=== PATIENT | male | born 1945 | race Caucasian/White ===

== ENCOUNTER 2023-10-24 18:17 | Observation (INO) | payer OTHER ==
--- OUTSIDE RECORDS SUMMARY | 2023-10-24 18:24 | XMS REPORT | Continuity of Care Document ---
:1945 Author Organization [facility] t Address [address] [place] [address] [address] [place] [address] Care Team Providers Name Role Phone Derrell Cali MD Primary Care Physician [phone] Rodney Attending Clinician Unavailable Everett Bone MD Attending Clinician Willard Navarro MD Attending Clinician ARSLAN TORRES Attending Clinician Unavailable YENNIFER POE Attending Clinician Unavailable Therapy, Adc Covid Infusion Attending Clinician Unavailable Yennifer Poe MD Attending Clinician Doctor Unassigned, [place] Attending Clinician Unavailable Kenny Michaels RN Attending Clinician Unavailable Pcp, Patient Does Not Have A Attending Clinician [phone] ROS MAIER Attending Clinician Unavailable Only, Ang Db Test Attending Clinician Unavailable Ros Maier MD Attending Clinician ALEX AGUILERA Attending Clinician Unavailable MARLINE VICK Attending Clinician Unavailable Chris Hernandez Attending Clinician Marline Vick MD Attending Clinician Po, [facility] Attending Clinician Unavailable Rodney Admitting Clinician Unavailable DINESH PANDYA Admitting Clinician Unavailable MD WILLARD NAVARRO Admitting Clinician Unavailable ALEX AGUILERA Admitting Clinician Unavailable MARLINE VICK Admitting Clinician Unavailable Payers Payer Name Policy Type Policy Number Effective Date Expiration Date Kellen VÁSQUEZ (MEDICARE [id number] 2021 REPLACEMENT PPO) 00:00:00 [place]: [id number] [employer] 00:00:00 [employer] [place] [id number] (MEDICARE 00:00:00 SUPPLEMENT) MEDICARE PART A \\T\\ [id number] 2009 B 00:00:00 [employer] [place] [id number] 2011 00:00:00 [place] [id number] (MEDICARE) 00:00:00 Problems Condition Condition Condition Status Onset Resolution Last Treating Co mments Source Name Details Category Date Date Treatment Clinician Date Body mass Body Mass Problem Active 2022-11 Narayan escobar index 30+ Index 30+ 0-03 Fami ly - obesity - Obesity 00:00: Prac tic 00 e Type 2 Type 2 Problem Active [facility] diabetes Diabetes 4-28 Family mellitus Mellitus 00:00: Practi c 00 e Senile Senile Problem Active [facility] purpura Purpura 4-28 Family 00:00: Practic 00 e Long-term Long-term Problem Active Narayan escobar current Current 4-28 Family use of Use of 00:00: Practic insulin Insulin 00 e Other Other Disease Active Overview: Method i spondylosi spondylosi 3-[address] s with s with 00:00: g of this Hospita radiculopa radiculopa 00 note l thy, thy, might be lumbar lumbar different region region from the original. Added automatic ally from request for surgery [id number] Lumbar Lumbar Disease Active Overview: Method i stenosis stenosis 3-[address] without without 00:00: g of this Hospi ta neurogenic neurogenic 00 note l claudicati claudicati might be on on different from the original. Added automatic ally from request for surgery [id number] Spondyloli Spondyloli Disease Active Overview : Methodi sthesis of sthesis of 3-[address] lumbar lumbar 00:00: g of this Hospita region region 00 note l might be different from the original. Added automatic ally from request for surgery [id number] Hypoglycem Hypoglycem Problem Active 2020-11 V illage ia ia 2-21 Family 00:00: Practic 00 e Multiple Multiple Problem Active Oconnell ge complicati Complicati 06-15 Fa awilda ons due to ons Due to 00:00: Pr actic type 2 Type 2 00 e diabetes Diabetes mellitus Mellitus Hyperlipid Hyperlipid Problem Active [facility] emia due emia Due 06-15 Family to type 2 to Type 2 00:00: Prac tic diabetes Diabetes 00 e mellitus Mellitus Medication Medication Problem Active [facility] review due Review Due 05-16 Fa awilda 00:00: Practic 00 e Eosinophil Eosinophil Problem Active [facility] count Count 9 Family above above 00:00: Practic reference Reference 00 e range Range Essential Essential Disease Active Met hodi hypertensi hypertensi 1-07 st on on 00:00: Hospita 00 l History of History of Disease Active M ethodi coronary coronary 1-07 st artery artery 00:00: Hospita stent stent 00 l placement placement Atrial Atrial Disease Active 2016-11 Methodi fibrillati fibrillati 2-05 st on on 00:00: Hospita 00 l CAD in CAD in Disease Active 2016-11 Methodi [place] 2-05 st artery artery 00:00: Hospita 00 l Hyperlipid Hyperlipid Problem Active 2016-11 V illage emia emia 0-18 Family 00:00: Practic 00 e Obesity Obesity Problem Active 2016-11 [place] 0-18 Family 00:00: Practic 00 e Essential Essential Problem Active 2016-11 Narayan shawn hypertensi Hypertensi 0-18 Fa awilda on on 00:00: Practic 00 e Atrial Atrial Problem Active 2016-11 [place] fibrillati Fibrillati 0-18 Fa awilda on on 00:00: Practic 00 e Sciatica Sciatica Problem Active 2016-11 Oconnell ge 0-18 Family 00:00: Practic 00 e 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 Methodi atrial atrial nce 2-06 st fibrillati fibrillati 00:00: Ho spita on on 00 l Benign Benign Disease Active 2015-11 Methodi hypertensi hypertensi 0-27 st on on 00:00: Hospita 00 l Cerebrovas Cerebrovas Disease Active 2015-11 M ethodi cular cular 0 st accident accident 00:00: Hospit a (CVA) (CVA) 00 l Coronary Coronary Disease Active 2015-11 Metho di arterioscl arterioscl 0 st erosis erosis 00:00: Hospita 00 l Hyperlipid Hyperlipid Disease Active 2015-11 M ethodi emia emia 0 st 00:00: Hospita 00 l Peripheral Peripheral Disease Active 2015-11 M ethodi vascular vascular 0 st disease disease 00:00: Hospita 00 l [id number] Recurrent Problem Co mmon [id number] [facility]ith [id number] Hypercalci Problem Com mon uria [facility] Kidney Kidney Problem Common stone stones [facility] [id number] Hyperoxalu Problem C ommon [id number] mirza [facility] Allergies, Adverse Reactions, Alerts Allergy Allergy Status Severity Reaction(s) Onset Inactive Treating Comm ents Source Name Type Date Date Clinician Cortison Propensi Active Unknown - pancreati Univers e ty to See comments 06-28 tis ity of adverse 00:00: [place] reaction 00 Medical s Branch CORTISON DRUG Active Unknown-Cmnt Un cris E INGREDI 06-28 ity of 00:00: [place] 00 Medical Branch No Known Propensi Active 2015-11 Method i Drug ty to 0 st Allergie adverse 00:00: Hospita s reaction 00 l s to drug Family History Family Member Diagnosis Comments Start Date Stop Date Source Other Coronary artery [facility] disease Social History Social Habit Start Date Stop Date Quantity Comments Source Sexual orientation [facility] of [facility] Exposure to Unable to assess Methodi st SARS-CoV-2 (event) Hospit al History of Social 2022-04-01 2022-04-[address] function 00:00:00 00:00:00 Hospital Alcohol intake 2022-03-29 2022-03-29 Current [facility] 00:00:00 00:00:00 non-drinker of Hospital alcohol (finding) Tobacco use and 2019-12-22 2019-12-22 Smokeless [facility] exposure 00:00:00 00:00:00 tobacco non-user Hospital Sex Assigned At [birth year] [facility] 00:[facility] Smoking Status Start Date Stop Date Source Never Smoker [facility] Medications Ordered Filled Start Stop Current Ordering Indication Dosage Frequency Signature Comments Components Source Medication Medication Date Date Medication? Clinician (SIG) Name Name atorvastati Yes 10mg QD Take 1 Meth jason n (LIPITOR) 7-11 tablet (10 st 10 mg 10:59: mg total) Hospita tablet 20 by mouth l daily. empaglifloz 2022-0 Yes QD Take by Met vinh -linaglip-m 7-[address] etformin 10:59: daily. Hospita (Trijardy 20 TAKE 2 TAB l XR) 25-5-1,000 mg tablet, IR & ER, biphasic 24hr cetirizine 0 Yes 10mg QD Take 1 Metho di (ZyrTEC) 10 7-11 tablet (10 st MG tablet 10:59: mg total) Hos rhianna 20 by mouth l daily. multivitami 0 Yes 1{tbl} QD Take 1 Me thodi n tablet 7-[address] 10:59: mouth Hospita 20 daily. l cholecalcif 0 Yes Take by Met vinh caterina, 7-[address] vitamin D3, 10:59: Hospit a (VITAMIN D3 20 l ORAL) ZINC ORAL 2022-0 Yes Take by Metho di 7-[address] 10:59: Hospita 20 l ascorbic 2022-0 Yes Take by Method i acid 7-[address] (WALLACE-C 10:59: Hospita ORAL) 20 l ferrous 2022-0 Yes Take by Methodi sulfate 7-[address] (IRON ORAL) 10:59: Hospit a 20 l MAGNESIUM 2022-0 Yes Take by Metho di ORAL 7-[address] 10:59: Hospita 20 l NON 3-0 Yes COq10, Methodi FORMULARY 7-11 FISH OIL, st 10:59: TURMERIC, Hospita 20 FOLIC l ACID, TRANSRESVE RATROL atorvastati 0 Yes 10mg QD Take 1 Meth jason n (LIPITOR) 7-11 tablet (10 st 10 mg 10:59: mg total) Hospita tablet 20 by mouth l daily. empaglifloz 2022-0 Yes QD Take by Met vinh -jesusaglip-m - mouth st etformin 10:59: daily. Hospita (Trijardy 20 TAKE 2 TAB l XR) 25-5-1,000 mg tablet, IR & ER, biphasic 24hr cetirizine 2022-0 Yes 10mg QD Take 1 Metho di (ZyrTEC) 10 -11 tablet (10 st MG tablet 10:59: mg total) Hos rhianna 20 by mouth l daily. multivitami 2022-0 Yes 1{tbl} QD Take 1 Me thodi n tablet -[address] 10:59: mouth Hospita 20 daily. l cholecalcif 2022-0 Yes Take by Met vinh caterina, 06-[address] vitamin D3, 10:59: Hospit a (VITAMIN D3 20 l ORAL) ZINC ORAL 2022-0 Yes Take by Metho di - mouth. st 10:59: Hospita 20 l ascorbic 2023-0 Yes Take by Method i acid - mouth. st (WALLACE-C 10:59: Hospita ORAL) 20 l ferrous 2022-0 Yes Take by Methodi sulfate -[address] (IRON ORAL) 10:59: Hospit a 20 l MAGNESIUM 2022-0 Yes Take by Metho di ORAL - mouth. st 10:59: Hospita 20 l NON 3-0 Yes COq10, Methodi FORMULARY 06-05 FISH OIL, st 10:59: TURMERIC, Hospita 20 FOLIC l ACID, TRANSRESVE RATROL atorvastati 2022-0 Yes 10mg QD Take 1 Meth jason n (LIPITOR) 7-11 tablet (10 st 10 mg 10:59: mg total) Hospita tablet 20 by mouth l daily. empaglifloz 2022-0 Yes QD Take by Met vinh -linaglip-m - mouth st etformin 10:59: daily. Hospita (Trijardy 20 TAKE 2 TAB l XR) 25-5-1,000 mg tablet, IR & ER, biphasic 24hr cetirizine 2022-0 Yes 10mg QD Take 1 Metho di (ZyrTEC) 10 7-11 tablet (10 st MG tablet 10:59: mg total) Hos rhianna 20 by mouth l daily. multivitami 0 Yes 1{tbl} QD Take 1 Me thodi n tablet 7-[address] 10:59: mouth Hospita 20 daily. l cholecalcif 0 Yes Take by Met hodi caterina, 06-[address] vitamin D3, 10:59: Hospit a (VITAMIN D3 20 l ORAL) ZINC ORAL 0 Yes Take by Metho di - mouth. st 10:59: Hospita 20 l ascorbic 0 Yes Take by Method i acid - mouth. st (WALLACE-C 10:59: Hospita ORAL) 20 l ferrous 0 Yes Take by Methodi sulfate 06-[address] (IRON ORAL) 10:59: Hospit a 20 l MAGNESIUM 0 Yes Take by Metho di ORAL 06-[address] 10:59: Hospita 20 l NON 0 Yes COq10, Methodi FORMULARY 06-05 FISH OIL, st 10:59: TURMERIC, Hospita 20 FOLIC l ACID, TRANSRESVE RATROL atorvastati 0 Yes 10mg QD Take 1 Meth jason n (LIPITOR) 7-11 tablet (10 st 10 mg 10:59: mg total) Hospita tablet 20 by mouth l daily. empaglifloz 0 Yes QD Take by Met hodi -linaglip-m 06-[address] etformin 10:59: daily. Hospita (Trijardy 20 TAKE 2 TAB l XR) 25-5-1,000 mg tablet, IR & ER, biphasic 24hr cetirizine 0 Yes 10mg QD Take 1 Metho di (ZyrTEC) 10 7-11 tablet (10 st MG tablet 10:59: mg total) Hos rhianna 20 by mouth l daily. multivitami 0 Yes 1{tbl} QD Take 1 Me thodi n tablet 7-[address] 10:59: mouth Hospita 20 daily. l cholecalcif 0 Yes Take by Met hodi caterina, 06-[address] vitamin D3, 10:59: Hospit a (VITAMIN D3 20 l ORAL) ZINC ORAL 2022-0 Yes Take by Metho di 7-[address] 10:59: Hospita 20 l ascorbic 2022-0 Yes Take by Method i acid 7-[address] (WALLACE-C 10:59: Hospita ORAL) 20 l ferrous 2022-0 Yes Take by Methodi sulfate 7-[address] (IRON ORAL) 10:59: Hospit a 20 l MAGNESIUM 2022-0 Yes Take by Metho di ORAL 7-[address] 10:59: Hospita 20 l NON 3-0 Yes COq10, Methodi FORMULARY 7-11 FISH OIL, st 10:59: TURMERIC, Hospita 20 FOLIC l ACID, TRANSRESVE RATROL Xarelto 20 2022-0 Yes 20mg QD Take 1 Metho di mg tablet 7-11 tablet ( 00:00: mg total) Hospita 00 by mouth l daily. Xarelto 20 2022-0 Yes 20mg QD Take 1 Metho di mg tablet 7-11 tablet ( 00:00: mg total) Hospita 00 by mouth l daily. Xarelto 20 2022-0 Yes 20mg QD Take 1 Metho di mg tablet 7-11 tablet ( 00:00: mg total) Hospita 00 by mouth l daily. Xarelto 20 2022-0 Yes 20mg QD Take 1 Metho di mg tablet 7-11 tablet ( 00:00: mg total) Hospita 00 by mouth l daily. sotaloL 2022-0 Yes TAKE 1 Methodi (BETAPACE) 6-[address] 80 MG 00:00: MOUTH 2 Hospita tablet 00 TIMES A l DAY. sotaloL 2022-0 Yes TAKE 1 Methodi (BETAPACE) 6-[address] 80 MG 00:00: MOUTH 2 Hospita tablet 00 TIMES A l DAY. sotaloL 2022-0 Yes TAKE 1 Methodi (BETAPACE) 6-[address] 80 MG 00:00: MOUTH 2 Hospita tablet 00 TIMES A l DAY. sotaloL 2022-0 Yes TAKE 1 Methodi (BETAPACE) 6-[address] 80 MG 00:00: MOUTH 2 Hospita tablet 00 TIMES A l DAY. hydroCHLORO hydroCHLORO 2022-0 No 1{table QD hydroCHLOR thiazide 25 thiazide 25 5-25 t_in_th Othiazide MG MG 00:00: e_morni 25 MG 00 ng} ramipriL 2022-0 Yes [id number] TAKE 1 Me thodi (ALTACE) 10 3-[address] MG capsule 00:00: MOUTH Hospit a 00 EVERY DAY l ramipriL 2022-0 Yes [id number] TAKE 1 Me thodi (ALTACE) 10 3-[address] MG capsule 00:00: MOUTH Hospit a 00 EVERY DAY l ramipriL 2022-0 Yes [id number] TAKE 1 Me thodi (ALTACE) 10 3-[address] MG capsule 00:00: MOUTH Hospit a 00 EVERY DAY l ramipriL 2022-0 Yes [id number] TAKE 1 Me thodi (ALTACE) 10 3-[address] MG capsule 00:00: MOUTH Hospit a 00 EVERY DAY l Chlorthalid Chlorthalid 2021-11 No QD Chlorthali one 25 MG one 25 MG 1-23 done 25 MG 00:00: 00 Xarelto 20 2022- No 20mg QD Take 1 Meth jason mg tablet 06-06 tablet ( 00:00: 00:00 mg total) Hospita 00 :00 by mouth l daily. Xarelto 20 2021- 202- No 20mg QD Take 1 Meth jason mg tablet 06-06 tablet ( 00:00: 00:00 mg total) Hospita 00 :00 by mouth l daily. Xarelto 20 2021-2022- No 20mg QD Take 1 Meth jason mg tablet 06-06 tablet ( 00:00: 00:00 mg total) Hospita 00 :00 by mouth l daily. Xarelto 20 2022- No 20mg QD Take 1 Meth jason mg tablet 06-06 tablet ( 00:00: 00:00 mg total) Hospita 00 :00 by mouth l daily. sotaloL 2022- No 80mg Q.5D Take 1 Methodi (sotalol 06-06 06-27 tablet (80 st AF) 80 MG 00:00: 00:00 mg total) Ho spita tablet 00 :00 by mouth 2 l (two) times a day. sotaloL 2022- No 80mg Q.5D Take 1 Methodi (sotalol 06-0627 tablet (80 st AF) 80 MG 00:00: 00:00 mg total) Ho spita tablet 00 :00 by mouth 2 l (two) times a day. sotaloL 2022- No 80mg Q.5D Take 1 Methodi (sotalol 7-27 tablet (80 st AF) 80 MG 00:00: 00:00 mg total) Ho spita tablet 00 :00 by mouth 2 l (two) times a day. sotaloL 2022- No 80mg Q.5D Take 1 Methodi (sotalol 7-27 tablet (80 st AF) 80 MG 00:00: 00:00 mg total) Ho spita tablet 00 :00 by mouth 2 l (two) times a day. nut.tx.comp Yes [id number] 1{bottl Q.5D Take 1 Methodi . immune 4-18 e} Bottle by st systm,reg 00:00: mouth 2 Hospi ta (Impact 00 (two) l Advanced times a Recovery) day. 0.1 gram-1.12 kcal/mL liquid nut.tx.comp Yes [id number] 1{bottl Q.5D Take 1 Methodi . immune 4-18 e} Bottle by st systm,reg 00:00: mouth 2 Hospi ta (Impact 00 (two) l Advanced times a Recovery) day. 0.1 gram-1.12 kcal/mL liquid nut.tx.comp Yes [id number] 1{bottl Q.5D Take 1 Methodi . immune 4-18 e} Bottle by st systm,reg 00:00: mouth 2 Hospi ta (Impact 00 (two) l Advanced times a Recovery) day. 0.1 gram-1.12 kcal/mL liquid nut.tx.comp Yes [id number] 1{bottl Q.5D Take 1 Methodi . immune 4-18 e} Bottle by st systm,reg 00:00: mouth 2 Hospi ta (Impact 00 (two) l Advanced times a Recovery) day. 0.1 gram-1.12 kcal/mL liquid ramipriL 2022-0 Yes [id number] TAKE 1 Me thodi (ALTACE) 10 -[address] MG capsule 00:00: MOUTH Hospit a 00 EVERY DAY l sotaloL 0 Yes [id number] 80mg Q.5D TAKE 1 Met hodi (BETAPACE) -14 TABLET (80 st 80 MG 00:00: MG TOTAL) Hospita tablet 00 BY MOUTH 2 l (TWO) TIMES A DAY. ramipriL 0 3- No [id number] TAKE 1 M ethodi (ALTACE) 10 12-09-20 CAPSULE BY s t MG capsule 00:00: 00:00 MOUTH Hospi ta 00 :00 EVERY DAY l ramipriL 2021-0 3- No [id number] TAKE 1 M ethodi (ALTACE) 10 12-09-20 CAPSULE BY s t MG capsule 00:00: 00:00 MOUTH Hospi ta 00 :00 EVERY DAY l ramipriL 2021-0 3- No [id number] TAKE 1 M ethodi (ALTACE) 10 12-09-20 CAPSULE BY s t MG capsule 00:00: 00:00 MOUTH Hospi ta 00 :00 EVERY DAY l ramipriL 2021-0 3- No [id number] TAKE 1 M ethodi (ALTACE) 10 12-09-20 CAPSULE BY s t MG capsule 00:00: 00:00 MOUTH Hospi ta 00 :00 EVERY DAY l casirivimab 2020-11- No [id number] 1200mg 1,200 mg, Univers -imdevimab 009-01 Subcutaneo it y of (REGEN-COV 21:30: 20:11 us, ONCE, [place] (EUA)) 00 :00 1 dose, On Medical injection [facility] 1,200 mg 09/01/21 at 1630, Routine empaglifloz Yes 25mg QD Take 25 mg Methodi in -[address] (Jardiance) 11:15: daily. [facility] 25 mg 21 l tablet metFORMIN Yes 500mg Q.5D Take 500 Met hodi (GLUCOPHAGE 7-[address] ) 500 mg 11:15: mouth 2 Hospit a tablet 21 (two) l times a day with meals. atorvastati 2021-0 Yes atorvastat Methodi n (LIPITOR) -[address] 20 MG 11:13: tablet I Hospita tablet 38 PO QD l Xarelto 20 Yes TAKE 1 Metho di mg tablet 6-[address] 00:00: MOUTH Hospita 00 EVERY DAY l ramipriL 2019-11- No [id number] 10mg QD Take 1 M ethodi (ALTACE) 10 01-[address] MG capsule 00:00: 00:00 (10 mg [facility]osp [facility] 00 :00 total) by l mouth daily. sotaloL 2019-11 No [id number] 80mg Q.5D Take 1 Me thodi (BETAPACE) 01-11 tablet (80 st 80 MG 00:00: 00:00 mg total) Hospit a tablet 00 :00 by mouth 2 l (two) times a day. hydroCHLORO No 25mg QD Take 1 Met hodi thiazide 9-10 07-06 tablet (25 st (HYDRODIURI 00:00: 00:00 mg total) Hospita L) 25 MG 00 :00 by mouth l tablet daily. Xarelto 20 No 20mg QD Take 1 Meth jason mg tablet 05-04-14 tablet (20 st 00:00: 00:00 mg total) Hospita 00 :00 by mouth l daily. sulfamethox Yes TAKE 1 Univ ers azole-trime 2-13 TABLET BY ity of thoprim 00:00: MOUTH [place] 800-160 mg 00 EVERY 12 Medic al per tablet HOURS FOR Bran ch 7 DAYS sulfamethox 0 Yes TAKE 1 Univ ers azole-trime 2-13 TABLET BY ity of thoprim 00:00: MOUTH [place] 800-160 mg 00 EVERY 12 Medic al per tablet HOURS FOR Bran ch 7 DAYS sulfamethox 2019-0 Yes TAKE 1 Univ ers azole-trime 2-13 TABLET BY ity of thoprim 00:00: MOUTH [place] 800-160 mg 00 EVERY 12 Medic al per tablet HOURS FOR Bran ch 7 DAYS sulfamethox 2019-0 Yes TAKE 1 Univ ers azole-trime 2-13 TABLET BY ity of thoprim 00:00: MOUTH [place] 800-160 mg 00 EVERY 12 Medic al per tablet HOURS FOR Bran ch 7 DAYS sulfamethox 2020-0 Yes TAKE 1 Univ ers azole-trime 2-13 TABLET BY ity of thoprim 00:00: MOUTH [place] 800-160 mg 00 EVERY 12 Medic al per tablet HOURS FOR Bran ch 7 DAYS sulfamethox 2020-0 Yes TAKE 1 Univ ers azole-trime 2-13 TABLET BY ity of thoprim 00:00: MOUTH [place] 800-160 mg 00 EVERY 12 Medic al per tablet HOURS FOR Bran ch 7 DAYS sulfamethox 2020-0 Yes TAKE 1 Univ ers azole-trime 2-13 TABLET BY ity of thoprim 00:00: MOUTH [place] 800-160 mg 00 EVERY 12 Medic al per tablet HOURS FOR Bran ch 7 DAYS sulfamethox 2020-0 Yes TAKE 1 Univ ers azole-trime 2-13 TABLET BY ity of thoprim 00:00: MOUTH [place] 800-160 mg 00 EVERY 12 Medic al per tablet HOURS FOR Bran ch 7 DAYS sulfamethox 2020-0 Yes TAKE 1 Univ ers azole-trime 2-13 TABLET BY ity of thoprim 00:00: MOUTH [place] 800-160 mg 00 EVERY 12 Medic al per tablet HOURS FOR Bran ch 7 DAYS sulfamethox 2020-0 Yes TAKE 1 Univ ers azole-trime 2-13 TABLET BY ity of thoprim 00:00: MOUTH [place] 800-160 mg 00 EVERY 12 Medic al per tablet HOURS FOR Bran ch 7 DAYS sulfamethox 2020-0 Yes TAKE 1 Univ ers azole-trime 2-13 TABLET BY ity of thoprim 00:00: MOUTH [place] 800-160 mg 00 EVERY 12 Medic al per tablet HOURS FOR Bran ch 7 DAYS sulfamethox 2020-0 Yes TAKE 1 Univ ers azole-trime 2-13 TABLET BY ity of thoprim 00:00: MOUTH [place] 800-160 mg 00 EVERY 12 Medic al per tablet HOURS FOR Bran ch 7 DAYS sulfamethox 2020-0 Yes TAKE 1 Univ ers azole-trime 2-13 TABLET BY ity of thoprim 00:00: MOUTH [place] 800-160 mg 00 EVERY 12 Medic al per tablet HOURS FOR Bran ch 7 DAYS sulfamethox 2020-0 Yes TAKE 1 Univ ers azole-trime 2-13 TABLET BY ity of thoprim 00:00: MOUTH [place] 800-160 mg 00 EVERY 12 Medic al per tablet HOURS FOR Bran ch 7 DAYS sulfamethox 2020-0 Yes TAKE 1 Univ ers azole-trime 2-13 TABLET BY ity of thoprim 00:00: MOUTH [place] 800-160 mg 00 EVERY 12 Medic al per tablet HOURS FOR Bran ch 7 DAYS sulfamethox 2020-0 Yes TAKE 1 Univ ers azole-trime 2-13 TABLET BY ity of thoprim 00:00: MOUTH [place] 800-160 mg 00 EVERY 12 Medic al per tablet HOURS FOR Bran ch 7 DAYS ACCU-CHEK 2020-0 Yes TEST 4 Univer s FASTCLIX 1-10 TIMES A ity of LANCET DRUM 00:00: DAY [facility] ACCU-CHEK 2020-0 Yes CHECK Univers GUIDE strip 1-10 BLOOD ity of 00:00: SUGAR 4 [place] 00 TIMES A Medical DAY Branch ACCU-CHEK 2020-0 Yes TEST 4 Univer s FASTCLIX 1-10 TIMES A ity of LANCET DRUM 00:00: DAY [facility] ACCU-CHEK 2020-0 Yes CHECK Univers GUIDE strip 1-10 BLOOD ity of 00:00: SUGAR 4 [place] 00 TIMES A Medical DAY Branch ACCU-CHEK 2020-0 Yes TEST 4 Univer s FASTCLIX 1-10 TIMES A ity of LANCET DRUM 00:00: DAY [facility] ACCU-CHEK 2020-0 Yes CHECK Univers GUIDE strip 1-10 BLOOD ity of 00:00: SUGAR 4 [place] 00 TIMES A Medical DAY Branch ACCU-CHEK 2020-0 Yes TEST 4 Univer s FASTCLIX 1-10 TIMES A ity of LANCET DRUM 00:00: DAY [facility] ACCU-CHEK 2020-0 Yes CHECK Univers GUIDE strip 1-10 BLOOD ity of 00:00: SUGAR 4 [place] 00 TIMES A Medical DAY Branch ACCU-CHEK 2020-0 Yes TEST 4 Univer s FASTCLIX 1-10 TIMES A ity of LANCET DRUM 00:00: DAY [facility] ACCU-CHEK 2020-0 Yes CHECK Univers GUIDE strip 1-10 BLOOD ity of 00:00: SUGAR 4 [place] 00 TIMES A Medical DAY Branch ACCU-CHEK 2020-0 Yes TEST 4 Univer s FASTCLIX 1-10 TIMES A ity of LANCET DRUM 00:00: DAY [facility] ACCU-CHEK 2020-0 Yes CHECK Univers GUIDE strip 1-10 BLOOD ity of 00:00: SUGAR 4 [place] 00 TIMES A Medical DAY Branch ACCU-CHEK 2020-0 Yes TEST 4 Univer s FASTCLIX 1-10 TIMES A ity of LANCET DRUM 00:00: DAY [facility] 00 Medical Branch ACCU-CHEK 2020-0 Yes CHECK Univers GUIDE strip 1-10 BLOOD ity of 00:00: SUGAR 4 [place] 00 TIMES A Medical DAY Branch ACCU-CHEK 2020-0 Yes TEST 4 Univer s FASTCLIX 1-10 TIMES A ity of LANCET DRUM 00:00: DAY [facility] ACCU-CHEK 2020-0 Yes CHECK Univers GUIDE strip 1-10 BLOOD ity of 00:00: SUGAR 4 [place] 00 TIMES A Medical DAY Branch ACCU-CHEK 2020-0 Yes TEST 4 Univer s FASTCLIX 1-10 TIMES A ity of LANCET DRUM 00:00: DAY [facility] ACCU-CHEK 2020-0 Yes CHECK Univers GUIDE strip 1-10 BLOOD ity of 00:00: SUGAR 4 [place] 00 TIMES A Medical DAY Branch ACCU-CHEK 2020-0 Yes TEST 4 Univer s FASTCLIX 1-10 TIMES A ity of LANCET DRUM 00:00: DAY [facility] ACCU-CHEK 2020-0 Yes CHECK Univers GUIDE strip 1-10 BLOOD ity of 00:00: SUGAR 4 [place] 00 TIMES A Medical DAY Branch ACCU-CHEK 2020-0 Yes TEST 4 Univer s FASTCLIX 1-10 TIMES A ity of LANCET DRUM 00:00: DAY [facility] ACCU-CHEK 2020-0 Yes CHECK Univers GUIDE strip 1-10 BLOOD ity of 00:00: SUGAR 4 [place] 00 TIMES A Medical DAY Branch ACCU-CHEK 2020-0 Yes TEST 4 Univer s FASTCLIX 1-10 TIMES A ity of LANCET DRUM 00:00: DAY [facility] ACCU-CHEK 2020-0 Yes CHECK Univers GUIDE strip 1-10 BLOOD ity of 00:00: SUGAR 4 00 TIMES A Medical DAY Branch ACCU-CHEK 2020-0 Yes TEST 4 Univer s FASTCLIX 1-10 TIMES A ity of LANCET DRUM 00:00: DAY [facility] 00 Medical Branch ACCU-CHEK 2020-0 Yes CHECK Univers GUIDE strip 1-10 BLOOD ity of 00:00: SUGAR 4 [place] 00 TIMES A Medical DAY Branch ACCU-CHEK 2020-0 Yes TEST 4 Univer s FASTCLIX 1-10 TIMES A ity of LANCET DRUM 00:00: DAY [facility] 00 Medical Branch ACCU-CHEK 2020-0 Yes CHECK Univers GUIDE strip 1-10 BLOOD ity of 00:00: SUGAR 4 [place] 00 TIMES A Medical DAY Branch ACCU-CHEK 2020-0 Yes TEST 4 Univer s FASTCLIX 1-10 TIMES A ity of LANCET DRUM 00:00: DAY [facility] 00 Medical Branch ACCU-CHEK 2020-0 Yes CHECK Univers GUIDE strip 1-10 BLOOD ity of 00:00: SUGAR 4 [place] 00 TIMES A Medical DAY Branch ACCU-CHEK 2020-0 Yes TEST 4 Univer s FASTCLIX 1-10 TIMES A ity of LANCET DRUM 00:00: DAY [facility] 00 Medical Branch ACCU-CHEK 2020-0 Yes CHECK Univers GUIDE strip 1-10 BLOOD ity of 00:00: SUGAR 4 [place] 00 TIMES A Medical DAY Branch BD 2019-1 Yes INJECT 3-4 Univers ULTRAFINE 2-16 TIMES ity of III MINI 00:00: DAILY 90 [place] PEN Medical gauge x Branch 3/16" Ndle BD 2019-1 Yes INJECT 3-4 Univers ULTRAFINE 2-16 TIMES ity of III MINI 00:00: DAILY 90 [place] PEN Medical gauge x Branch 3/16" Ndle BD 2019-1 Yes INJECT 3-4 Univers ULTRAFINE 2-16 TIMES ity of III MINI 00:00: DAILY 90 [place] PEN Medical gauge x Branch 3/16" Ndle BD 2019-1 Yes INJECT 3-4 Univers ULTRAFINE 2-16 TIMES ity of III MINI 00:00: DAILY 90 [place] PEN Medical gauge x Branch 3/16" Ndle BD 2019-1 Yes INJECT 3-4 Univers ULTRAFINE 2-16 TIMES ity of III MINI 00:00: DAILY 90 [place] PEN Medical gauge x Branch 3/16" Ndle BD 2019-1 Yes INJECT 3-4 Univers ULTRAFINE 2-16 TIMES ity of III MINI 00:00: DAILY 90 [place] PEN Medical gauge x Branch 3/16" Ndle BD 2019- Yes INJECT 3-4 Univers ULTRAFINE 2-16 TIMES ity of III MINI 00:00: DAILY 90 [place] PEN 00 Medical gauge x Branch 3/16" Ndle BD 2019- Yes INJECT 3-4 Univers ULTRAFINE 2-16 TIMES ity of III MINI 00:00: DAILY 90 [place] PEN Medical gauge x Branch 3/16" Ndle BD 2019- Yes INJECT 3-4 Univers ULTRAFINE 2-16 TIMES ity of III MINI 00:00: DAILY 90 [place] PEN Medical gauge x Branch 3/16" Ndle BD 2019- Yes INJECT 3-4 Univers ULTRAFINE 2-16 TIMES ity of III MINI 00:00: DAILY 90 [place] PEN Medical gauge x Branch 3/16" Ndle BD 2019- Yes INJECT 3-4 Univers ULTRAFINE 2-16 TIMES ity of III MINI 00:00: DAILY 90 [place] PEN Medical gauge x Branch 3/16" Ndle BD 2019- Yes INJECT 3-4 Univers ULTRAFINE 2-16 TIMES ity of III MINI 00:00: DAILY 90 [place] PEN Medical gauge x Branch 3/16" Ndle BD 2019- Yes INJECT 3-4 Univers ULTRAFINE 2-16 TIMES ity of III MINI 00:00: DAILY 90 [place] PEN Medical gauge x Branch 3/16" Ndle BD 2019- Yes INJECT 3-4 Univers ULTRAFINE 2-16 TIMES ity of III MINI 00:00: DAILY 90 [place] PEN Medical gauge x Branch 3/16" Ndle BD 2019- Yes INJECT 3-4 Univers ULTRAFINE 2-16 TIMES ity of III MINI 00:00: DAILY 90 [place] PEN Medical gauge x Branch 3/16" Ndle BD 2019- Yes INJECT 3-4 Univers ULTRAFINE 2-16 TIMES ity of III MINI 00:00: DAILY 90 [place] PEN Medical gauge x Branch 3/16" Ndle azithromyci 2019- Yes TAKE 2 Univ ers n 250 mg 2-13 TABLETS BY ity o f tablet 00:00: MOUTH [place] 00 TODAY, Medical THEN TAKE Branch 1 TABLET DAILY FOR 4 DAYS azithromyci 2019- Yes TAKE 2 Univ ers n 250 mg 2-13 TABLETS BY ity o f tablet 00:00: MOUTH [place] 00 TODAY, Medical THEN TAKE Branch 1 TABLET DAILY FOR 4 DAYS azithromyci 2018-11 Yes TAKE 2 Univ ers n 250 mg 2-13 TABLETS BY ity o f tablet 00:00: MOUTH TODAY, Medical THEN TAKE Branch 1 TABLET DAILY FOR 4 DAYS azithromyci 2018-11 Yes TAKE 2 Univ ers n 250 mg 2-13 TABLETS BY ity o f tablet 00:00: MOUTH TODAY, Medical THEN TAKE Branch 1 TABLET DAILY FOR 4 DAYS azithromyci 2018-11 Yes TAKE 2 Univ ers n 250 mg 2-13 TABLETS BY ity o f tablet 00:00: MOUTH TODAY, Medical THEN TAKE Branch 1 TABLET DAILY FOR 4 DAYS azithromyci 2018-11 Yes TAKE 2 Univ ers n 250 mg 2-13 TABLETS BY ity o f tablet 00:00: TODAY, Medical THEN TAKE Branch 1 TABLET DAILY FOR 4 DAYS azithromyci 2018-11 Yes TAKE 2 Univ ers n 250 mg 2-13 TABLETS BY ity o f tablet 00:00: MOUTH TODAY, Medical THEN TAKE Branch 1 TABLET DAILY FOR 4 DAYS azithromyci 2018-11 Yes TAKE 2 Univ ers n 250 mg 2-13 TABLETS BY ity o f tablet 00:00: MOUTH TODAY, Medical THEN TAKE Branch 1 TABLET DAILY FOR 4 DAYS azithromyci 2018-11 Yes TAKE 2 Univ ers n 250 mg 2-13 TABLETS BY ity o f tablet 00:00: MOUTH TODAY, Medical THEN TAKE Branch 1 TABLET DAILY FOR 4 DAYS azithromyci 2018-11 Yes TAKE 2 Univ ers n 250 mg 2-13 TABLETS BY ity o f tablet 00:00: MOUTH TODAY, Medical THEN TAKE Branch 1 TABLET DAILY FOR 4 DAYS azithromyci 2018-11 Yes TAKE 2 Univ ers n 250 mg 2-13 TABLETS BY ity o f tablet 00:00: MOUTH TODAY, Medical THEN TAKE Branch 1 TABLET DAILY FOR 4 DAYS azithromyci 2018-11 Yes TAKE 2 Univ ers n 250 mg 2-13 TABLETS BY ity o f tablet 00:00: MOUTH TODAY, Medical THEN TAKE Branch 1 TABLET DAILY FOR 4 DAYS azithromyci 2018-11 Yes TAKE 2 Univ ers n 250 mg 2-13 TABLETS BY ity o f tablet 00:00: MOUTH [place] TODAY, Medical THEN TAKE Branch 1 TABLET DAILY FOR 4 DAYS azithromyci 2018-11 Yes TAKE 2 Univ ers n 250 mg 2-13 TABLETS BY ity o f tablet 00:00: MOUTH [place] TODAY, Medical THEN TAKE Branch 1 TABLET DAILY FOR 4 DAYS azithromyci 2018-11 Yes TAKE 2 Univ ers n 250 mg 2-13 TABLETS BY ity o f tablet 00:00: MOUTH [place] TODAY, Medical THEN TAKE Branch 1 TABLET DAILY FOR 4 DAYS azithromyci 2018-11 Yes TAKE 2 Univ ers n 250 mg 2-13 TABLETS BY ity o f tablet 00:00: MOUTH [place] TODAY, Medical THEN TAKE Branch 1 TABLET DAILY FOR 4 DAYS [facility] 2018-11 Yes as needed. Univers 10 mg 2-10 ity of tablet 00:00: [place] [facility] 2018-11 Yes as needed. Univers 10 mg 2-10 ity of tablet 00:00: [place] [facility] 2018-11 Yes as needed. Univers 10 mg 2-10 ity of tablet 00:00: [place] [facility] 2018-11 Yes as needed. Univers 10 mg 2-10 ity of tablet 00:00: [place] [facility] 2018-11 Yes as needed. Univers 10 mg 2-10 ity of tablet 00:00: [place] [facility] 2018-11 Yes as needed. Univers 10 mg 2-10 ity of tablet 00:00: [place] [facility] 2018-11 Yes as needed. Univers 10 mg 2-10 ity of tablet 00:00: [place] [facility] 2018-11 Yes as needed. Univers 10 mg 2-10 ity of tablet 00:00: [place] [facility] 2018-11 Yes as needed. Univers 10 mg 2-10 ity of tablet 00:00: [place] [facility] 2018-11 Yes as needed. Univers 10 mg 2-10 ity of tablet 00:00: [place] [facility] 2018-11 Yes as needed. Univers 10 mg 2-10 ity of tablet 00:00: [place] [facility] 2018-11 Yes as needed. Univers 10 mg 2-10 ity of tablet 00:00: [place] [facility] 2018-11 Yes as needed. Univers 10 mg 2-10 ity of tablet 00:00: [place] 00 [facility] 2018-11 Yes as needed. Univers 10 mg 2-10 ity of tablet 00:00: [place] [facility] 2018-11 Yes as needed. Univers 10 mg 2-10 ity of tablet 00:00: [place] [facility] 2018-11 Yes as needed. Univers 10 mg 2-10 ity of tablet 00:00: [place] [facility] 2018-11 Yes as needed. [facility] (SINGULAIR) 2-10 st 10 mg 00:00: [facility]osp[facility] tablet 00 l rivaroxaban Yes TAKE 1 Univ ers (XARELTO) 6-21 TABLET BY ity o f 20 mg 00:00: MOUTH [place] tablet 00 EVERY DAY Medical Branch rivaroxaban Yes TAKE 1 Univ ers (XARELTO) 6-21 TABLET BY ity o f 20 mg 00:00: MOUTH [place] tablet 00 EVERY DAY Medical Branch rivaroxaban Yes TAKE 1 Univ ers (XARELTO) 6-21 TABLET BY ity o f 20 mg 00:00: MOUTH [place] tablet 00 EVERY DAY Medical Branch rivaroxaban 20190 Yes TAKE 1 Univ ers (XARELTO) 6-21 TABLET BY ity o f 20 mg 00:00: MOUTH [place] tablet 00 EVERY DAY Medical Branch rivaroxaban 20190 Yes TAKE 1 Univ ers (XARELTO) 6-21 TABLET BY ity o f 20 mg 00:00: MOUTH [place] tablet 00 EVERY DAY Medical Branch rivaroxaban 20190 Yes TAKE 1 Univ ers (XARELTO) 6-21 TABLET BY ity o f 20 mg 00:00: MOUTH [place] tablet 00 EVERY DAY Medical Branch rivaroxaban 20190 Yes TAKE 1 Univ ers (XARELTO) 6-21 TABLET BY ity o f 20 mg 00:00: MOUTH [place] tablet 00 EVERY DAY Medical Branch rivaroxaban 20190 Yes TAKE 1 Univ ers (XARELTO) 6-21 TABLET BY ity o f 20 mg 00:00: MOUTH [place] tablet 00 EVERY DAY Medical Branch rivaroxaban 20190 Yes TAKE 1 Univ ers (XARELTO) 6-21 TABLET BY ity o f 20 mg 00:00: MOUTH [place] tablet 00 EVERY DAY Medical Branch rivaroxaban 2019 Yes TAKE 1 Univ ers (XARELTO) 6-21 TABLET BY ity o f 20 mg 00:00: MOUTH [place] tablet 00 EVERY DAY Medical Branch rivaroxaban Yes TAKE 1 Univ ers (XARELTO) 6-21 TABLET BY ity o f 20 mg 00:00: MOUTH [place] tablet 00 EVERY DAY Medical Branch rivaroxaban Yes TAKE 1 Univ ers (XARELTO) 6-21 TABLET BY ity o f 20 mg 00:00: MOUTH [place] tablet 00 EVERY DAY Medical Branch rivaroxaban Yes TAKE 1 Univ ers (XARELTO) 6-21 TABLET BY ity o f 20 mg 00:00: MOUTH [place] tablet 00 EVERY DAY Medical Branch rivaroxaban Yes TAKE 1 Univ ers (XARELTO) 6-21 TABLET BY ity o f 20 mg 00:00: MOUTH [place] tablet 00 EVERY DAY Medical Branch rivaroxaban Yes TAKE 1 Univ ers (XARELTO) 6-21 TABLET BY ity o f 20 mg 00:00: MOUTH [place] tablet 00 EVERY DAY Medical Branch rivaroxaban Yes TAKE 1 Univ ers (XARELTO) 6-21 TABLET BY ity o f 20 mg 00:00: MOUTH [place] tablet 00 EVERY DAY Medical Branch Insulin Asp 2017-11 Yes INJECT Univ ers Prt-Insulin 12-04 UNDER THE ity of Aspart 00:00: SKIN 40 [place] (NOVOLOG 00 UNITS Medical MIX 70-30) BEFORE Branch 100 unit/mL BREAKFAST, (70-30) LUNCH, injection DINNER & INCREASE DIRECTED TDD 140 3 TIME Insulin Asp 2017-11 Yes INJECT Univ ers Prt-Insulin 12-04 UNDER THE ity of Aspart 00:00: SKIN 40 [place] (NOVOLOG 00 UNITS Medical MIX 70-30) BEFORE Branch 100 unit/mL BREAKFAST, (70-30) LUNCH, injection DINNER & INCREASE DIRECTED TDD 140 3 TIME Insulin Asp 2017-11 Yes INJECT Univ ers Prt-Insulin -09 UNDER THE ity of Aspart 00:00: SKIN 40 [place] (NOVOLOG 00 UNITS Medical MIX 70-30) BEFORE Branch 100 unit/mL BREAKFAST, (70-30) LUNCH, injection DINNER & INCREASE DIRECTED TDD 140 3 TIME Insulin Asp 2017-11 Yes INJECT Univ ers Prt-Insulin 12-04 UNDER THE ity of Aspart 00:00: SKIN 40 [place] (NOVOLOG 00 UNITS Medical MIX 70-30) BEFORE Branch 100 unit/mL BREAKFAST, (70-30) LUNCH, injection DINNER & INCREASE DIRECTED TDD 140 3 TIME Insulin Asp 2017-11 Yes INJECT Univ ers Prt-Insulin 12-04 UNDER THE ity of Aspart 00:00: SKIN 40 [place] (NOVOLOG 00 UNITS Medical MIX 70-30) BEFORE Branch 100 unit/mL BREAKFAST, (70-30) LUNCH, injection DINNER & INCREASE DIRECTED TDD 140 3 TIME Insulin Asp 2017-11 Yes INJECT Univ ers Prt-Insulin 12-04 UNDER THE ity of Aspart 00:00: SKIN 40 [place] (NOVOLOG 00 UNITS Medical MIX 70-30) BEFORE Branch 100 unit/mL BREAKFAST, (70-30) LUNCH, injection DINNER & INCREASE DIRECTED TDD 140 3 TIME Insulin Asp 2017-11 Yes INJECT Univ ers Prt-Insulin 12-04 UNDER THE ity of Aspart 00:00: SKIN 40 [place] (NOVOLOG 00 UNITS Medical MIX 70-30) BEFORE Branch 100 unit/mL BREAKFAST, (70-30) LUNCH, injection DINNER & INCREASE DIRECTED TDD 140 3 TIME Insulin Asp 2017-11 Yes INJECT Univ ers Prt-Insulin 12-04 UNDER THE ity of Aspart 00:00: SKIN 40 [place] (NOVOLOG 00 UNITS Medical MIX 70-30) BEFORE Branch 100 unit/mL BREAKFAST, (70-30) LUNCH, injection DINNER & INCREASE DIRECTED TDD 140 3 TIME Insulin Asp 2017-11 Yes INJECT Univ ers Prt-Insulin 12-04 UNDER THE ity of Aspart 00:00: SKIN 40 [place] (NOVOLOG 00 UNITS Medical MIX 70-30) BEFORE Branch 100 unit/mL BREAKFAST, (70-30) LUNCH, injection DINNER & INCREASE DIRECTED TDD 140 3 TIME Insulin Asp 2017-11 Yes INJECT Univ ers Prt-Insulin 12-04 UNDER THE ity of Aspart 00:00: SKIN 40 [place] (NOVOLOG 00 UNITS Medical MIX 70-30) BEFORE Branch 100 unit/mL BREAKFAST, (70-30) LUNCH, injection DINNER & INCREASE DIRECTED TDD 140 3 TIME Insulin Asp 2017-11 Yes INJECT Univ ers Prt-Insulin 12-04 UNDER THE ity of Aspart 00:00: SKIN 40 [place] (NOVOLOG 00 UNITS Medical MIX 70-30) BEFORE Branch 100 unit/mL BREAKFAST, (70-30) LUNCH, injection DINNER & INCREASE DIRECTED TDD 140 3 TIME Insulin Asp 2018-1 Yes INJECT Univ ers Prt-Insulin 12-04 UNDER THE ity of Aspart 00:00: SKIN 40 [place] (NOVOLOG 00 UNITS Medical MIX 70-30) BEFORE Branch 100 unit/mL BREAKFAST, (70-30) LUNCH, injection DINNER & INCREASE DIRECTED TDD 140 3 TIME Insulin Asp 2017-11 Yes INJECT Univ ers Prt-Insulin 12-04 UNDER THE ity of Aspart 00:00: SKIN 40 [place] (NOVOLOG 00 UNITS Medical MIX 70-30) BEFORE Branch 100 unit/mL BREAKFAST, (70-30) LUNCH, injection DINNER & INCREASE DIRECTED TDD 140 3 TIME Insulin Asp 2017-11 Yes INJECT Univ ers Prt-Insulin 12-04 UNDER THE ity of Aspart 00:00: SKIN 40 [place] (NOVOLOG 00 UNITS Medical MIX 70-30) BEFORE Branch 100 unit/mL BREAKFAST, (70-30) LUNCH, injection DINNER & INCREASE DIRECTED TDD 140 3 TIME Insulin Asp 2017-11 Yes INJECT Univ ers Prt-Insulin 12-04 UNDER THE ity of Aspart 00:00: SKIN 40 [place] (NOVOLOG 00 UNITS Medical MIX 70-30) BEFORE Branch 100 unit/mL BREAKFAST, (70-30) LUNCH, injection DINNER & INCREASE DIRECTED TDD 140 3 TIME Insulin Asp 2017-11 Yes INJECT Univ ers Prt-Insulin 12-04 UNDER THE ity of Aspart 00:00: SKIN 40 [place] (NOVOLOG 00 UNITS Medical MIX 70-30) BEFORE Branch 100 unit/mL BREAKFAST, (70-30) LUNCH, injection DINNER & INCREASE DIRECTED TDD 140 3 TIME NOVOLOG MIX 2017-11 Yes Q.5D 2 (two) Met hodi 70-30FLEXPE 12-[address] N U-100 100 00:00: day before Hosp[facility] unit/mL 00 meals. 100 l (70-30) units insulin pen total NOVOLOG MIX 2017-11 Yes Q.5D 2 (two) Met hodi 70-30FLEXPE -[address] N U-100 100 00:00: day before [facility]osp[facility] unit/mL 00 meals. 100 l (70-30) units insulin pen total NOVOLOG MIX 2017-11 Yes INJECT Meth jason 70-30FLEXPE 12-[address] N U-100 100 00:00: SKIN 40 [facility] [place] unit/mL 00 UNITS l (70-30) BEFORE insulin pen BREAKFAST, LUNCH, DINNER & INCREASE DIRECTED TDD 140 3 TIME NOVOLOG MIX 2017-11 Yes Q.5D 2 (two) Met hodi 70-30FLEXPE 1-[address] N U-100 100 00:00: day before [facility]osp[facility] unit/mL 00 meals. 100 l (70-30) units insulin pen total NOVOLOG MIX 2017-11 Yes Q.5D 2 (two) Met hodi 70-30FLEXPE 1-[address] N U-100 100 00:00: day before [facility]osp[facility] unit/mL 00 meals. 100 l (70-30) units insulin pen total INSULIN 2016-11 Yes inject Univers LISPRO 1-27 under the ity of PROTAMIN/LI 16:52: skin. [address] (HUMALOG Branch MIX 75-25 [place]) hydroCHLORO 2016-11 Yes 25mg Take 25 mg Univers thiazide 25 1-27 by mouth ity of mg tablet 16:52: daily. [address] foLIC acid 2016-11 Yes 1mg Take 1 mg Un cris 1 mg tablet 1-27 by mouth ity of 16:52: daily. [address] sotalol 80 2016-11 Yes 80mg Take 80 mg U nivers mg tablet 1-27 by mouth ity of 16:52: every 12 [place] [id number] (twelve) Medical hours. Branch aspirin 81 2016-11 Yes 81mg Take 81 mg U nivers mg chewable 1-27 by mouth ity of tablet 16:52: daily. [address] atorvastati 2016-11 Yes 10mg Take 10 mg Univers n (LIPITOR) 1-27 by mouth ity of 10 mg 16:52: at [place] [address] bedtime. Medical Branch hydroCHLORO 2016-11 Yes 25mg Take 25 mg Univers thiazide 25 1-27 by mouth ity of mg tablet 16:52: daily. [address] ramipril 10 2016-11 Yes 10mg Take 10 mg Univers mg capsule 1-27 by mouth ity o f 16:52: daily. [address] INSULIN 2016-11 Yes inject Univers LISPRO 1-27 under the ity of PROTAMIN/LI 16:52: skin. [place] [address] Medical (HUMALOG Branch MIX 75-25 [place]) sotalol 80 2016-11 Yes 80mg Take 80 mg U nivers mg tablet 1-27 by mouth ity of 16:52: every 12 [place] [id number] (twelve) Medical hours. Branch hydroCHLORO 2016-11 Yes 25mg Take 25 mg Univers thiazide 25 1-27 by mouth ity of mg tablet 16:52: daily. [address] foLIC acid 2016-11 Yes 1mg Take 1 mg Un cris 1 mg tablet 1-27 by mouth ity of 16:52: daily. [address] foLIC acid 2016-11 Yes 1mg Take 1 mg Un cris 1 mg tablet 1-27 by mouth ity of 16:52: daily. [address] aspirin 81 2016-11 Yes 81mg Take 81 mg U nivers mg chewable 1-27 by mouth ity of tablet 16:52: daily. [address] atorvastati 2016-11 Yes 10mg Take 10 mg Univers n (LIPITOR) 1-27 by mouth ity of 10 mg 16:52: at [place] tablet 26 bedtime. [facility] Branch ramipril 10 2016-11 Yes 10mg Take 10 mg Univers mg capsule 1-27 by mouth ity o f 16:52: daily. [address] INSULIN 2016-11 Yes inject Univers LISPRO 1-27 under the ity of PROTAMIN/LI 16:52: skin. [place] [address] Medical (HUMALOG Branch MIX 75-25 [place]) sotalol 80 2016-11 Yes 80mg Take 80 mg U nivers mg tablet 1-27 by mouth ity of 16:52: every 12 [place] [address] (twelve) Medical hours. Branch hydroCHLORO 2016-11 Yes 25mg Take 25 mg Univers thiazide 25 1-27 by mouth ity of mg tablet 16:52: daily. [address] foLIC acid 2016-11 Yes 1mg Take 1 mg Un cris 1 mg tablet 1-27 by mouth ity of 16:52: daily. [address] aspirin 81 2016-11 Yes 81mg Take 81 mg U nivers mg chewable 1-27 by mouth ity of tablet 16:52: daily. [address] atorvastati 2016-11 Yes 10mg Take 10 mg Univers n (LIPITOR) 1-27 by mouth ity of 10 mg 16:52: at [place] tablet 26 bedtime. [facility] ramipril 10 2016-11 Yes 10mg Take 10 mg Univers mg capsule 1-27 by mouth ity o f 16:52: daily. [address] INSULIN 2016-11 Yes inject Univers LISPRO 1-27 under the ity of PROTAMIN/LI 16:52: skin. [facility] 26 Medical (HUMALOG Branch MIX 75-25 [place]) sotalol 80 2016-11 Yes 80mg Take 80 mg U nivers mg tablet 1-27 by mouth ity of 16:52: every 12 [place] [address] (twelve) Medical hours. Branch hydroCHLORO 2016-11 Yes 25mg Take 25 mg Univers thiazide 25 1-27 by mouth ity of mg tablet 16:52: daily. [address] foLIC acid 2016-11 Yes 1mg Take 1 mg Un cris 1 mg tablet 1-27 by mouth ity of 16:52: daily. [address] aspirin 81 2016-11 Yes 81mg Take 81 mg U nivers mg chewable 1-27 by mouth ity of tablet 16:52: daily. [address] atorvastati 2016-11 Yes 10mg Take 10 mg Univers n (LIPITOR) 1-27 by mouth ity of 10 mg 16:52: at [place] tablet 26 bedtime. [facility] Branch ramipril 10 2016-11 Yes 10mg Take 10 mg Univers mg capsule 1-27 by mouth ity o f 16:52: daily. [address] INSULIN 2016-11 Yes inject Univers LISPRO 1-27 under the ity of PROTAMIN/LI 16:52: skin. [facility] 26 Medical (HUMALOG Branch MIX 75-25 [place]) sotalol 80 2016-11 Yes 80mg Take 80 mg U nivers mg tablet 1-27 by mouth ity of 16:52: every 12 [place] [address] (twelve) Medical hours. Branch hydroCHLORO 2016-11 Yes 25mg Take 25 mg Univers thiazide 25 1-27 by mouth ity of mg tablet 16:52: daily. [address] foLIC acid 2016-11 Yes 1mg Take 1 mg Un cris 1 mg tablet 1-27 by mouth ity of 16:52: daily. [address] aspirin 81 2016-11 Yes 81mg Take 81 mg U nivers mg chewable 1-27 by mouth ity of tablet 16:52: daily. [address] atorvastati 2016-11 Yes 10mg Take 10 mg Univers n (LIPITOR) 1-27 by mouth ity of 10 mg 16:52: at [place] tablet 26 bedtime. [facility] ramipril 10 2016-11 Yes 10mg Take 10 mg Univers mg capsule 1-27 by mouth ity o f 16:52: daily. [address] INSULIN 2016-11 Yes inject Univers LISPRO 1-27 under the ity of PROTAMIN/LI 16:52: skin. [place] [address] Medical (HUMALOG Branch MIX 75-25 [place]) sotalol 80 2016-11 Yes 80mg Take 80 mg U nivers mg tablet 1-27 by mouth ity of 16:52: every 12 [place] [address] (twelve) Medical hours. Branch hydroCHLORO 2016-11 Yes 25mg Take 25 mg Univers thiazide 25 1-27 by mouth ity of mg tablet 16:52: daily. [address] foLIC acid 2016-11 Yes 1mg Take 1 mg Un cris 1 mg tablet 1-27 by mouth ity of 16:52: daily. [address] aspirin 81 2016-11 Yes 81mg Take 81 mg U nivers mg chewable 1-27 by mouth ity of tablet 16:52: daily. [address] aspirin 81 2016-11 Yes 81mg Take 81 mg U nivers mg chewable 1-27 by mouth ity of tablet 16:52: daily. [address] atorvastati 2016-11 Yes 10mg Take 10 mg Univers n (LIPITOR) 1-27 by mouth ity of 10 mg 16:52: at [place] tablet 26 bedtime. [facility] ramipril 10 2016-11 Yes 10mg Take 10 mg Univers mg capsule 1-27 by mouth ity o f 16:52: daily. [address] INSULIN 2016-11 Yes inject Univers LISPRO 1-27 under the ity of PROTAMIN/LI 16:52: skin. [place] [address] Medical (HUMALOG Branch MIX 75-25 [place]) sotalol 80 2016-11 Yes 80mg Take 80 mg U nivers mg tablet 1-27 by mouth ity of 16:52: every 12 [place] [address] (twelve) Medical hours. Branch hydroCHLORO 2016-11 Yes 25mg Take 25 mg Univers thiazide 25 1-27 by mouth ity of mg tablet 16:52: daily. [address] foLIC acid 2016-11 Yes 1mg Take 1 mg Un cris 1 mg tablet 1-27 by mouth ity of 16:52: daily. [address] atorvastati 2016-11 Yes 10mg Take 10 mg Univers n (LIPITOR) 1-27 by mouth ity of 10 mg 16:52: at [place] tablet 26 bedtime. [facility] ramipril 10 2016-11 Yes 10mg Take 10 mg Univers mg capsule 1-27 by mouth ity o f 16:52: daily. [address] aspirin 81 2016-11 Yes 81mg Take 81 mg U nivers mg chewable 1-27 by mouth ity of tablet 16:52: daily. [address] atorvastati 2016-11 Yes 10mg Take 10 mg Univers n (LIPITOR) 1-27 by mouth ity of 10 mg 16:52: at [place] tablet 26 bedtime. [facility] ramipril 10 2016-11 Yes 10mg Take 10 mg Univers mg capsule 1-27 by mouth ity o f 16:52: daily. [address] INSULIN 2016-11 Yes inject Univers LISPRO 1-27 under the ity of PROTAMIN/LI 16:52: skin. [place] [address] Medical (HUMALOG Branch MIX 75-25 [place]) sotalol 80 2016-11 Yes 80mg Take 80 mg U nivers mg tablet 1-27 by mouth ity of 16:52: every 12 [place] [address] (twelve) Medical hours. Branch hydroCHLORO 2016-11 Yes 25mg Take 25 mg Univers thiazide 25 1-27 by mouth ity of mg tablet 16:52: daily. [address] foLIC acid 2016-11 Yes 1mg Take 1 mg Un cris 1 mg tablet 1-27 by mouth ity of 16:52: daily. [address] INSULIN 2016-11 Yes inject Univers LISPRO 1-27 under the ity of PROTAMIN/LI 16:52: skin. [facility] 26 Medical (HUMALOG Branch MIX 75-25 [place]) sotalol 80 2016-11 Yes 80mg Take 80 mg U nivers mg tablet 1-27 by mouth ity of 16:52: every 12 [place] [address] (twelve) Medical hours. Branch aspirin 81 2016-11 Yes 81mg Take 81 mg U nivers mg chewable 1-27 by mouth ity of tablet 16:52: daily. [address] atorvastati 2016-11 Yes 10mg Take 10 mg Univers n (LIPITOR) 1-27 by mouth ity of 10 mg 16:52: at [place] tablet 26 bedtime. [facility] ramipril 10 2016-11 Yes 10mg Take 10 mg Univers mg capsule 1-27 by mouth ity o f 16:52: daily. [address] INSULIN 2016-11 Yes inject Univers LISPRO 1-27 under the ity of PROTAMIN/LI 16:52: skin. [address] (HUMALOG Branch MIX 75-25 [place]) sotalol 80 2016-11 Yes 80mg Take 80 mg U nivers mg tablet 1-27 by mouth ity of 16:52: every 12 [place] [address] (twelve) Medical hours. Branch hydroCHLORO 2016-11 Yes 25mg Take 25 mg Univers thiazide 25 1-27 by mouth ity of mg tablet 16:52: daily. [address] hydroCHLORO 2016-11 Yes 25mg Take 25 mg Univers thiazide 25 1-27 by mouth ity of mg tablet 16:52: daily. [address] foLIC acid 2016-11 Yes 1mg Take 1 mg Un cris 1 mg tablet 1-27 by mouth ity of 16:52: daily. [address] foLIC acid 2016-11 Yes 1mg Take 1 mg Un cris 1 mg tablet 1-27 by mouth ity of 16:52: daily. [address] aspirin 81 2016-11 Yes 81mg Take 81 mg U nivers mg chewable 1-27 by mouth ity of tablet 16:52: daily. [address] atorvastati 2016-11 Yes 10mg Take 10 mg Univers n (LIPITOR) 1-27 by mouth ity of 10 mg 16:52: at [place] tablet 26 bedtime. [facility] ramipril 10 2016-11 Yes 10mg Take 10 mg Univers mg capsule 1-27 by mouth ity o f 16:52: daily. [address] INSULIN 2016-11 Yes inject Univers LISPRO 1-27 under the ity of PROTAMIN/LI 16:52: skin. [address] (HUMALOG Branch MIX 75-25 [place]) sotalol 80 2016-11 Yes 80mg Take 80 mg U nivers mg tablet 1-27 by mouth ity of 16:52: every 12 [place] [address] (twelve) Medical hours. Branch hydroCHLORO 2016-11 Yes 25mg Take 25 mg Univers thiazide 25 1-27 by mouth ity of mg tablet 16:52: daily. [address] foLIC acid 2016-11 Yes 1mg Take 1 mg Un cris 1 mg tablet 1-27 by mouth ity of 16:52: daily. [address] aspirin 81 2016-11 Yes 81mg Take 81 mg U nivers mg chewable 1-27 by mouth ity of tablet 16:52: daily. [address] atorvastati 2016-11 Yes 10mg Take 10 mg Univers n (LIPITOR) 1-27 by mouth ity of 10 mg 16:52: at [place] tablet 26 bedtime. [facility] ramipril 10 2016-11 Yes 10mg Take 10 mg Univers mg capsule 1-27 by mouth ity o f 16:52: daily. [address] INSULIN 2016-11 Yes inject Univers LISPRO 1-27 under the ity of PROTAMIN/LI 16:52: skin. [place] [address] Medical (HUMALOG Branch MIX 75-25 [place]) sotalol 80 2016-11 Yes 80mg Take 80 mg U nivers mg tablet 1-27 by mouth ity of 16:52: every 12 [place] [address] (twelve) Medical [facility]. Branch hydroCHLORO 2016-11 Yes 25mg Take 25 mg Univers thiazide 25 1-27 by mouth ity of mg tablet 16:52: daily. [address] foLIC acid 2016-11 Yes 1mg Take 1 mg Un cris 1 mg tablet 1-27 by mouth ity of 16:52: daily. [address] aspirin 81 2016-11 Yes 81mg Take 81 mg U nivers mg chewable 1-27 by mouth ity of tablet 16:52: daily. [address] atorvastati 2016-11 Yes 10mg Take 10 mg [facility] n (LIPITOR) 1-27 by mouth ity of 10 mg 16:52: at [place] tablet 26 bedtime. [facility] ramipril 10 2016-11 Yes 10mg Take 10 mg [facility] mg capsule 1-27 by mouth ity o f 16:52: daily. [address] INSULIN 2016-11 Yes inject [facility] LISPRO 1-27 under the ity of PROTAMIN/LI 16:52: skin. [place] [address] Medical (HUMALOG Branch MIX 75-25 [place]) sotalol 80 2016-11 Yes 80mg Take 80 mg U nivers mg tablet 1-27 by mouth ity of 16:52: every 12 [place] [id number] (twelve) Medical hours. Branch hydroCHLORO 2016-11 Yes 25mg Take 25 mg [facility] thiazide 25 1-27 by mouth ity of mg tablet 16:52: daily. [address] foLIC acid 2016-11 Yes 1mg Take 1 mg Un cris 1 mg tablet 1-27 by mouth ity of 16:52: daily. [address] aspirin 81 2016-11 Yes 81mg Take 81 mg U nivers mg chewable 1-27 by mouth ity of tablet 16:52: daily. [address] Branch atorvastati 2016-11 Yes 10mg Take 10 mg [facility] n (LIPITOR) 1-27 by mouth ity of 10 mg 16:52: at [place] tablet 26 bedtime. [facility] Branch ramipril 10 2016-11 Yes 10mg Take 10 mg Univers mg capsule 1-27 by mouth ity o f 16:52: daily. [address] INSULIN 2016-11 Yes inject [facility] LISPRO 1-27 under the ity of PROTAMIN/LI 16:52: skin. [place] [address] Medical (HUMALOG Branch MIX 75-25 [place]) sotalol 80 2016-11 Yes 80mg Take 80 mg U nivers mg tablet 1-27 by mouth ity of 16:52: every 12 [place] [id number] (twelve) Medical hours. Branch hydroCHLORO 2016-11 Yes 25mg Take 25 mg [facility] thiazide 25 1-27 by mouth ity of mg tablet 16:52: daily. [address] foLIC acid 2016-11 Yes 1mg Take 1 mg Un cris 1 mg tablet 1-27 by mouth ity of 16:52: daily. [address] aspirin 81 2016-11 Yes 81mg Take 81 mg U nivers mg chewable 1-27 by mouth ity of tablet 16:52: daily. [address] atorvastati 2016-11 Yes 10mg Take 10 mg [facility] n (LIPITOR) 1-27 by mouth ity of 10 mg 16:52: at [place] tablet 26 bedtime. [facility] Branch ramipril 10 2016-11 Yes 10mg Take 10 mg [facility] mg capsule 1-27 by mouth ity o f 16:52: daily. [address] aspirin 81 2016-11 Yes 81mg Take 81 mg U nivers mg chewable 1-27 by mouth ity of tablet 16:52: daily. [address] INSULIN 2016-11 Yes inject [facility] LISPRO 1-27 under the ity of PROTAMIN/LI 16:52: skin. [facility] 26 Medical (HUMALOG Branch MIX 75-25 [place]) sotalol 80 2016-11 Yes 80mg Take 80 mg U nivers mg tablet 1-27 by mouth ity of 16:52: every 12 [place] [id number] (twelve) Medical hours. Branch hydroCHLORO 2016-11 Yes 25mg Take 25 mg [facility] thiazide 25 1-27 by mouth ity of mg tablet 16:52: daily. [address] foLIC acid 2016-11 Yes 1mg Take 1 mg Un cris 1 mg tablet 1-27 by mouth ity of 16:52: daily. [address] atorvastati 2016-11 Yes 10mg Take 10 mg [facility] n (LIPITOR) 1-27 by mouth ity of 10 mg 16:52: at [place] tablet 26 bedtime. [facility] Branch aspirin 81 2016-11 Yes 81mg Take 81 mg U nivers mg chewable 1-27 by mouth ity of tablet 16:52: daily. [address] atorvastati 2016-11 Yes 10mg Take 10 mg [facility] n (LIPITOR) 1-27 by mouth ity of 10 mg 16:52: at [place] tablet 26 bedtime. [facility] Branch ramipril 10 2016-11 Yes 10mg Take 10 mg [facility] mg capsule 1-27 by mouth ity o f 16:52: daily. [address] INSULIN 2016-11 Yes inject [facility] LISPRO 1-27 under the ity of PROTAMIN/LI 16:52: skin. [place] [address] Medical (HUMALOG Branch MIX 75-25 [place]) sotalol 80 2016-11 Yes 80mg Take 80 mg U nivers mg tablet 1-27 by mouth ity of 16:52: every 12 [place] [address] (twelve) Medical hours. Branch hydroCHLORO 2016-11 Yes 25mg Take 25 mg [facility] thiazide 25 1-27 by mouth ity of mg tablet 16:52: daily. [address] foLIC acid 2016-11 Yes 1mg Take 1 mg Un cris 1 mg tablet 1-27 by mouth ity of 16:52: daily. [address] ramipril 10 2016-11 Yes 10mg Take 10 mg [facility] mg capsule 1-27 by mouth ity o f 16:52: daily. [address] aspirin 81 2016-11 Yes 81mg Take 81 mg U nivers mg chewable 1-27 by mouth ity of tablet 16:52: daily. [address] atorvastati 2016-11 Yes 10mg Take 10 mg [facility] n (LIPITOR) 1-27 by mouth ity of 10 mg 16:52: at [place] tablet 26 bedtime. [facility] Branch ramipril 10 2016-11 Yes 10mg Take 10 mg [facility] mg capsule 1-27 by mouth ity o f 16:52: daily. [address] INSULIN 2016-11 Yes inject [facility] LISPRO 1-27 under the ity of PROTAMIN/LI 16:52: skin. [facility] 26 Medical [facility] M[facility]-25 [place]) sotalol 80 2016-11 Yes 80mg Take 80 mg U nivers mg tablet 1-27 by mouth ity of 16:52: every 12 [place] [address] (twelve) Medical hours. Branch aspirin 81 2016-11 Yes 81mg Take 81 mg U nivers mg chewable 1-27 by mouth ity of tablet 10:52: daily. [address] atorvastati 2016-11 Yes 10mg Take 10 mg [facility] n (LIPITOR) 1-27 by mouth ity of 10 mg 10:52: at [place] tablet 26 bedtime. [facility] Branch ramipril 10 2016-11 Yes 10mg Take 10 mg [facility] mg capsule 1-27 by mouth ity o f 10:52: daily. [address] INSULIN 2016-11 Yes inject [facility] LISPRO 1-27 under the ity of PROTAMIN/LI 10:52: skin. [facility] 26 Medical ([facility]] Branch MIX 75-25 [place]) sotalol 80 2016-11 Yes 80mg Take 80 mg U nivers mg tablet 1-27 by mouth ity of 10:52: every 12 [place] [address] (twelve) Medical hours. Branch hydroCHLORO 2016-11 Yes 25mg Take 25 mg [facility] thiazide 25 1-27 by mouth ity of mg tablet 10:52: daily. [address] foLIC acid 2016-11 Yes 1mg Take 1 mg Un cris 1 mg tablet 1-27 by mouth ity of 10:52: daily. [address] aspirin 81 2016-11 Yes 81mg Take 81 mg U nivers mg chewable 1-27 by mouth ity of tablet 10:52: daily. [address] atorvastati 2016-11 Yes 10mg Take 10 mg [facility] n (LIPITOR) 1-27 by mouth ity of 10 mg 10:52: at [place] tablet 26 bedtime. [facility] Branch ramipril 10 2016-11 Yes 10mg Take 10 mg [facility] mg capsule 1-27 by mouth ity o f 10:52: daily. [address] INSULIN 2016-11 Yes inject [facility] LISPRO 1-27 under the ity of PROTAMIN/LI 10:52: skin. [place] [address] Medical (HUMALOG Branch MIX 75-25 [place]) sotalol 80 2016-11 Yes 80mg Take 80 mg U nivers mg tablet 1-27 by mouth ity of 10:52: every 12 [place] [address] (twelve) Medical hours. Branch hydroCHLORO 2016-11 Yes 25mg Take 25 mg [facility] thiazide 25 1-27 by mouth ity of mg tablet 10:52: daily. [address] foLIC acid 2016-11 Yes 1mg Take 1 mg Un cris 1 mg tablet 1-27 by mouth ity of 10:52: daily. [address] aspirin 81 2016-11 Yes 81mg Take 81 mg U nivers mg chewable 1-27 by mouth ity of tablet 10:52: daily. [address] atorvastati 2016-11 Yes 10mg Take 10 mg [facility] n (LIPITOR) 1-27 by mouth ity of 10 mg 10:52: at [place] tablet 26 bedtime. [facility] ramipril 10 2016-11 Yes 10mg Take 10 mg [facility] mg capsule 1-27 by mouth ity o f 10:52: daily. [address] INSULIN 2016-11 Yes inject [facility] LISPRO 1-27 under the ity of PROTAMIN/LI 10:52: skin. [place] [address] Medical (HUMALOG Branch MIX 75-25 [place]) sotalol 80 2016-11 Yes 80mg Take 80 mg U nivers mg tablet 1-27 by mouth ity of 10:52: every 12 [place] [address] (twelve) Medical hours. Branch hydroCHLORO 2016-11 Yes 25mg Take 25 mg [facility] thiazide 25 1-27 by mouth ity of mg tablet 10:52: daily. [address] foLIC acid 2016-11 Yes 1mg Take 1 mg Un cris 1 mg tablet 1-27 by mouth ity of 10:52: daily. [address] aspirin 81 2016-11 Yes 81mg Take 81 mg U nivers mg chewable 1-27 by mouth ity of tablet 10:52: daily. [address] atorvastati 2016-11 Yes 10mg Take 10 mg [facility] n (LIPITOR) 1-27 by mouth ity of 10 mg 10:52: at [place] tablet 26 bedtime. [facility] Branch ramipril 10 2016-11 Yes 10mg Take 10 mg [facility] mg capsule 1-27 by mouth ity o f 10:52: daily. [address] INSULIN 2016-11 Yes inject [facility] LISPRO 1-27 under the ity of PROTAMIN/LI 10:52: skin. [place] [address] Medical (HUMALOG Branch MIX 75-25 [place]) sotalol 80 2016-11 Yes 80mg Take 80 mg U nivers mg tablet 1-27 by mouth ity of 10:52: every 12 [place] [address] (twelve) Medical hours. Branch hydroCHLORO 2016-11 Yes 25mg Take 25 mg [facility] thiazide 25 1-27 by mouth ity of mg tablet 10:52: daily. [address] foLIC acid 2016-11 Yes 1mg Take 1 mg Un cris 1 mg tablet 1-27 by mouth ity of 10:52: daily. [address] aspirin 81 2016-11 Yes 81mg Take 81 mg U nivers mg chewable 1-27 by mouth ity of tablet 10:52: daily. [address] atorvastati 2016-11 Yes 10mg Take 10 mg [facility] n (LIPITOR) 1-27 by mouth ity of 10 mg 10:52: at [place] tablet 26 bedtime. [facility] ramipril 10 2016-11 Yes 10mg Take 10 mg [facility] mg capsule 1-27 by mouth ity o f 10:52: daily. [address] INSULIN 2016-11 Yes inject [facility] LISPRO 1-27 under the ity of PROTAMIN/LI 10:52: skin. [place] [address] Medical (HUMALOG Branch MIX 75-25 [place]) sotalol 80 2016-11 Yes 80mg Take 80 mg U nivers mg tablet 1-27 by mouth ity of 10:52: every 12 [place] [address] (twelve) Medical hours. Branch hydroCHLORO 2016-11 Yes 25mg Take 25 mg [facility] thiazide 25 1-27 by mouth ity of mg tablet 10:52: daily. [place] 26 Medical Branch foLIC acid 2016-11 Yes 1mg Take 1 mg Un cris 1 mg tablet 1-27 by mouth ity of 10:52: daily. [address] Branch diclofenac 2016-11 Yes 75mg Take 1 Unive rs 75 mg EC 1-15 tablet by ity of tablet 00:00: mouth (two) Medical times Branch daily with meals. diclofenac 2016-11 Yes 75mg Take 1 Unive rs 75 mg EC 1-15 tablet by ity of tablet 00:00: mouth (two) Medical times Branch daily with meals. diclofenac 2016-11 Yes 75mg Take 1 Unive rs 75 mg EC 1-15 tablet by ity of tablet 00:00: mouth (two) Medical times Branch daily with meals. diclofenac 2016-11 Yes 75mg Take 1 Unive rs 75 mg EC 1-15 tablet by ity of tablet 00:00: mouth (two) Medical times Branch daily with meals. diclofenac 2016-11 Yes 75mg Take 1 Unive rs 75 mg EC 1-15 tablet by ity of tablet 00:00: mouth (two) Medical times Branch daily with meals. diclofenac 2016-11 Yes 75mg Take 1 Unive rs 75 mg EC 1-15 tablet by ity of tablet 00:00: mouth (two) Medical times Branch daily with meals. diclofenac 2016-11 Yes 75mg Take 1 Unive rs 75 mg EC 1-15 tablet by ity of tablet 00:00: mouth (two) Medical times Branch daily with meals. diclofenac 2016-11 Yes 75mg Take 1 Unive rs 75 mg EC 1-15 tablet by ity of tablet 00:00: mouth (two) Medical times Branch daily with meals. diclofenac 2016-11 Yes 75mg Take 1 Unive rs 75 mg EC 1-15 tablet by ity of tablet 00:00: mouth (two) Medical times Branch daily with meals. diclofenac 2016-11 Yes 75mg Take 1 Unive rs 75 mg EC 1-15 tablet by ity of tablet 00:00: mouth (two) Medical times Branch daily with meals. diclofenac 2016-11 Yes 75mg Take 1 Unive rs 75 mg EC 1-15 tablet by ity of tablet 00:00: mouth (two) Medical times Branch daily with meals. diclofenac 2016-11 Yes 75mg Take 1 Unive rs 75 mg EC 1-15 tablet by ity of tablet 00:00: mouth (two) Medical times Branch daily with meals. diclofenac 2016-11 Yes 75mg Take 1 Unive rs 75 mg EC 1-15 tablet by ity of tablet 00:00: mouth (two) Medical times Branch daily with meals. diclofenac 2016-11 Yes 75mg Take 1 Unive rs 75 mg EC 1-15 tablet by ity of tablet 00:00: mouth (two) Medical times Branch daily with meals. diclofenac 2016-11 Yes 75mg Take 1 Unive rs 75 mg EC 1-15 tablet by ity of tablet 00:00: mouth (two) Medical times Branch daily with meals. diclofenac 2016-11 Yes 75mg Take 1 Unive rs 75 mg EC 1-15 tablet by ity of tablet 00:00: mouth (two) Medical times Branch daily with meals. diclofenac 2016-11 Yes 75mg Take 1 Unive rs 75 mg EC 1-15 tablet by ity of tablet 00:00: mouth (two) Medical times Branch daily with meals. diclofenac 2016-11 Yes 75mg Take 1 Unive rs 75 mg EC 1-15 tablet by ity of tablet 00:00: mouth (two) Medical times Branch daily with meals. diclofenac 2016-11 Yes 75mg Take 1 Unive rs 75 mg EC 1-15 tablet by ity of tablet 00:00: mouth (two) Medical times Branch daily with meals. diclofenac 2016-11 Yes 75mg Take 1 Unive rs 75 mg EC 1-15 tablet by ity of tablet 00:00: mouth (two) Medical times Branch daily with meals. diclofenac 2016-11 Yes 75mg Take 1 Unive rs 75 mg EC 1-15 tablet by ity of tablet 00:00: mouth (two) Medical times Branch daily with meals. diclofenac 2016-11 Yes 75mg Take 1 Unive rs 75 mg EC 1-15 tablet by ity of tablet 00:00: mouth (two) Medical times Branch daily with meals. traMADOL 50 Yes 50mg Take 1 Univ ers mg tablet 8-03 tablet by ity o f 00:00: mouth 00 every 4 Medical (four) Branch hours as needed for Pain (scale 7-10). traMADOL 50 2017-0 Yes 50mg Take 1 Univ ers mg tablet 8-03 tablet by ity o f 00:00: mouth [place] 00 every 4 Medical (four) Branch hours as needed for Pain (scale 7-10). traMADOL 50 2017-0 Yes 50mg Take 1 Univ ers mg tablet 8-03 tablet by ity o f 00:00: mouth [place] 00 every 4 Medical (four) Branch hours as needed for Pain (scale 7-10). traMADOL 50 2017-0 Yes 50mg Take 1 Univ ers mg tablet 8-03 tablet by ity o f 00:00: mouth [place] 00 every 4 Medical (four) Branch hours as needed for Pain (scale 7-10). traMADOL 50 2017-0 Yes 50mg Take 1 Univ ers mg tablet 8-03 tablet by ity o f 00:00: mouth [place] 00 every 4 Medical (four) Branch hours as needed for Pain (scale 7-10). traMADOL 50 2017-0 Yes 50mg Take 1 Univ ers mg tablet 8-03 tablet by ity o f 00:00: mouth [place] 00 every 4 Medical (four) Branch hours as needed for Pain (scale 7-10). traMADOL 50 2017-0 Yes 50mg Take 1 Univ ers mg tablet 8-03 tablet by ity o f 00:00: mouth [place] 00 every 4 Medical (four) Branch hours as needed for Pain (scale 7-10). traMADOL 50 2017-0 Yes 50mg Take 1 Univ ers mg tablet 8-03 tablet by ity o f 00:00: mouth [place] 00 every 4 Medical (four) Branch hours as needed for Pain (scale 7-10). traMADOL 50 2017-0 Yes 50mg Take 1 Univ ers mg tablet 8-03 tablet by ity o f 00:00: mouth [place] 00 every 4 Medical (four) Branch hours as needed for Pain (scale 7-10). traMADOL 50 2017-0 Yes 50mg Take 1 Univ ers mg tablet 8-03 tablet by ity o f 00:00: mouth [place] 00 every 4 Medical (four) Branch hours as needed for Pain (scale 7-10). traMADOL 50 2017-0 Yes 50mg Take 1 Univ ers mg tablet 8-03 tablet by ity o f 00:00: mouth [place] 00 every 4 Medical (four) Branch hours as needed for Pain (scale 7-10). traMADOL 50 2017-0 Yes 50mg Take 1 Univ ers mg tablet 8-03 tablet by ity o f 00:00: mouth [place] 00 every 4 Medical (four) Branch hours as needed for Pain (scale 7-10). traMADOL 50 2017-0 Yes 50mg Take 1 Univ ers mg tablet 8-03 tablet by ity o f 00:00: mouth [place] 00 every 4 Medical (four) Branch hours as needed for Pain (scale 7-10). traMADOL 50 2017-0 Yes 50mg Take 1 Univ ers mg tablet 8-03 tablet by ity o f 00:00: mouth [place] 00 every 4 Medical (four) Branch hours as needed for Pain (scale 7-10). traMADOL 50 2017-0 Yes 50mg Take 1 Univ ers mg tablet 8-03 tablet by ity o f 00:00: mouth [place] 00 every 4 Medical (four) Branch hours as needed for Pain (scale 7-10). traMADOL 50 2017-0 Yes 50mg Take 1 Univ ers mg tablet 8-03 tablet by ity o f 00:00: mouth [place] 00 every 4 Medical (four) Branch hours as needed for Pain (scale 7-10). traMADOL 50 2017-0 Yes 50mg Take 1 Univ ers mg tablet 8-03 tablet by ity o f 00:00: mouth [place] 00 every 4 Medical (four) Branch hours as needed for Pain (scale 7-10). traMADOL 50 2017-0 Yes 50mg Take 1 Univ ers mg tablet 8-03 tablet by ity o f 00:00: mouth [place] 00 every 4 Medical (four) Branch hours as needed for Pain (scale 7-10). traMADOL 50 2017-0 Yes 50mg Take 1 Univ ers mg tablet 8-03 tablet by ity o f 00:00: mouth [place] 00 every 4 Medical (four) Branch hours as needed for Pain (scale 7-10). traMADOL 50 2017-0 Yes 50mg Take 1 Univ ers mg tablet 8-03 tablet by ity o f 00:00: mouth [place] 00 every 4 Medical (four) Branch hours as needed for Pain (scale 7-10). traMADOL 50 2017-0 Yes 50mg Take 1 Univ ers mg tablet 8-03 tablet by ity o f 00:00: mouth [place] 00 every 4 Medical (four) Branch hours as needed for Pain (scale 7-10). traMADOL 50 2017-0 Yes 50mg Take 1 Univ ers mg tablet 8-03 tablet by ity o f 00:00: mouth [place] 00 every 4 Medical (four) Branch hours as needed for Pain (scale 7-10). cyclobenzap 2017-0 Yes 5mg Take 1 Univ ers rine 5 mg 7-28 tablet by ity o f tablet 00:00: mouth 3 [place] 00 (three) Medical times Branch daily. traMADOL 2017-0 Yes 50mg Take 1 Univers (ULTRAM) 50 7-28 tablet by ity of mg tablet 00:00: mouth [place] 00 every 6 Medical (six) Branch hours as needed for Pain (scale 4-6). cyclobenzap 2017-0 Yes 5mg Take 1 Univ ers rine 5 mg 7-28 tablet by ity o f tablet 00:00: mouth 3 (three) Medical times Branch daily. traMADOL 2017-0 Yes 50mg Take 1 Univers (ULTRAM) 50 7-28 tablet by ity of mg tablet 00:00: mouth [place] 00 every 6 Medical (six) Branch hours as needed for Pain (scale 4-6). cyclobenzap 2017-0 Yes 5mg Take 1 Univ ers rine 5 mg 7-28 tablet by ity o f tablet 00:00: mouth 3 (three) Medical times Branch daily. traMADOL 2017-0 Yes 50mg Take 1 Univers (ULTRAM) 50 7-28 tablet by ity of mg tablet 00:00: mouth [place] 00 every 6 Medical (six) Branch hours as needed for Pain (scale 4-6). cyclobenzap 2017-0 Yes 5mg Take 1 Univ ers rine 5 mg 7-28 tablet by ity o f tablet 00:00: mouth 3 00 (three) Medical times Branch daily. traMADOL 2017-0 Yes 50mg Take 1 Univers (ULTRAM) 50 7-28 tablet by ity of mg tablet 00:00: mouth [place] 00 every 6 Medical (six) Branch hours as needed for Pain (scale 4-6). cyclobenzap 2017-0 Yes 5mg Take 1 Univ ers rine 5 mg 7-28 tablet by ity o f tablet 00:00: mouth 3 00 (three) Medical times Branch daily. traMADOL 2017-0 Yes 50mg Take 1 Univers (ULTRAM) 50 7-28 tablet by ity of mg tablet 00:00: mouth [place] 00 every 6 Medical (six) Branch hours as needed for Pain (scale 4-6). cyclobenzap 2017-0 Yes 5mg Take 1 Univ ers rine 5 mg 7-28 tablet by ity o f tablet 00:00: mouth 3 [place] 00 (three) Medical times Branch daily. traMADOL 2017-0 Yes 50mg Take 1 Univers (ULTRAM) 50 7-28 tablet by ity of mg tablet 00:00: mouth [place] 00 every 6 Medical (six) Branch hours as needed for Pain (scale 4-6). cyclobenzap 2017-0 Yes 5mg Take 1 Univ ers rine 5 mg 7-28 tablet by ity o f tablet 00:00: mouth 3 [place] 00 (three) Medical times Branch daily. traMADOL 2017-0 Yes 50mg Take 1 Univers (ULTRAM) 50 7-28 tablet by ity of mg tablet 00:00: mouth [place] 00 every 6 Medical (six) Branch hours as needed for Pain (scale 4-6). cyclobenzap 2017-0 Yes 5mg Take 1 Univ ers rine 5 mg 7-28 tablet by ity o f tablet 00:00: mouth 3 [place] 00 (three) Medical times Branch daily. traMADOL 2017-0 Yes 50mg Take 1 Univers (ULTRAM) 50 7-28 tablet by ity of mg tablet 00:00: mouth [place] 00 every 6 Medical (six) Branch hours as needed for Pain (scale 4-6). cyclobenzap 2017-0 Yes 5mg Take 1 Univ ers rine 5 mg 7-28 tablet by ity o f tablet 00:00: mouth 3 [place] 00 (three) Medical times Branch daily. traMADOL 2017-0 Yes 50mg Take 1 Univers (ULTRAM) 50 7-28 tablet by ity of mg tablet 00:00: mouth [place] 00 every 6 Medical (six) Branch hours as needed for Pain (scale 4-6). cyclobenzap 2017-0 Yes 5mg Take 1 Univ ers rine 5 mg 7-28 tablet by ity o f tablet 00:00: mouth 3 [place] 00 (three) Medical times Branch daily. traMADOL 2017-0 Yes 50mg Take 1 Univers (ULTRAM) 50 7-28 tablet by ity of mg tablet 00:00: mouth [place] 00 every 6 Medical (six) Branch hours as needed for Pain (scale 4-6). cyclobenzap 2017-0 Yes 5mg Take 1 Univ ers rine 5 mg 7-28 tablet by ity o f tablet 00:00: mouth 3 (three) Medical times Branch daily. traMADOL 2017-0 Yes 50mg Take 1 Univers (ULTRAM) 50 7-28 tablet by ity of mg tablet 00:00: mouth [place] 00 every 6 Medical (six) Branch hours as needed for Pain (scale 4-6). cyclobenzap 2017-0 Yes 5mg Take 1 Univ ers rine 5 mg 7-28 tablet by ity o f tablet 00:00: mouth 3 00 (three) Medical times Branch daily. traMADOL 2017-0 Yes 50mg Take 1 Univers (ULTRAM) 50 7-28 tablet by ity of mg tablet 00:00: mouth [place] 00 every 6 Medical (six) Branch hours as needed for Pain (scale 4-6). cyclobenzap 2017-0 Yes 5mg Take 1 Univ ers rine 5 mg 7-28 tablet by ity o f tablet 00:00: mouth (three) Medical times Branch daily. traMADOL 2017-0 Yes 50mg Take 1 Univers (ULTRAM) 50 7-28 tablet by ity of mg tablet 00:00: mouth [place] 00 every 6 Medical (six) Branch hours as needed for Pain (scale 4-6). cyclobenzap 2017-0 Yes 5mg Take 1 Univ ers rine 5 mg 7-28 tablet by ity o f tablet 00:00: mouth (three) Medical times Branch daily. cyclobenzap 2017-0 Yes 5mg Take 1 Univ ers rine 5 mg 7-28 tablet by ity o f tablet 00:00: mouth (three) Medical times Branch daily. traMADOL 2017-0 Yes 50mg Take 1 Univers (ULTRAM) 50 7-28 tablet by ity of mg tablet 00:00: mouth [place] 00 every 6 Medical (six) Branch hours as needed for Pain (scale 4-6). traMADOL 2017-0 Yes 50mg Take 1 Univers (ULTRAM) 50 7-28 tablet by ity of mg tablet 00:00: mouth [place] 00 every 6 Medical (six) Branch hours as needed for Pain (scale 4-6). cyclobenzap 2017-0 Yes 5mg Take 1 Univ ers rine 5 mg 7-28 tablet by ity o f tablet 00:00: mouth 3 00 (three) Medical times Branch daily. traMADOL 2017-0 Yes 50mg Take 1 Univers (ULTRAM) 50 7-28 tablet by ity of mg tablet 00:00: mouth [place] 00 every 6 Medical (six) Branch hours as needed for Pain (scale 4-6). cyclobenzap 2017-0 Yes 5mg Take 1 Univ ers rine 5 mg 7-28 tablet by ity o f tablet 00:00: mouth 3 00 (three) Medical times Branch daily. traMADOL 2017-0 Yes 50mg Take 1 Univers (ULTRAM) 50 7-28 tablet by ity of mg tablet 00:00: mouth [place] 00 every 6 Medical (six) Branch hours as needed for Pain (scale 4-6). cyclobenzap 2017-0 Yes 5mg Take 1 Univ ers rine 5 mg 7-28 tablet by ity o f tablet 00:00: mouth 3 00 (three) Medical times Branch daily. cyclobenzap 2017-0 Yes 5mg Take 1 Univ ers rine 5 mg 7-28 tablet by ity o f tablet 00:00: mouth 3 00 (three) Medical times Branch daily. traMADOL 2017-0 Yes 50mg Take 1 Univers (ULTRAM) 50 7-28 tablet by ity of mg tablet 00:00: mouth [place] 00 every 6 Medical (six) Branch hours as needed for Pain (scale 4-6). traMADOL 2017-0 Yes 50mg Take 1 Univers (ULTRAM) 50 7-28 tablet by ity of mg tablet 00:00: mouth [place] 00 every 6 Medical (six) Branch hours as needed for Pain (scale 4-6). cyclobenzap 2017-0 Yes 5mg Take 1 Univ ers rine 5 mg 7-28 tablet by ity o f tablet 00:00: mouth 3 00 (three) Medical times Branch daily. traMADOL 2017-0 Yes 50mg Take 1 Univers (ULTRAM) 50 7-28 tablet by ity of mg tablet 00:00: mouth [place] 00 every 6 Medical (six) Branch hours as needed for Pain (scale 4-6). cyclobenzap 2017-0 Yes 5mg Take 1 Univ ers rine 5 mg 7-28 tablet by ity o f tablet 00:00: mouth 3 00 (three) Medical times Branch daily. traMADOL 2017-0 Yes 50mg Take 1 Univers (ULTRAM) 50 7-28 tablet by ity of mg tablet 00:00: mouth [place] 00 every 6 Medical (six) Branch hours as needed for Pain (scale 4-6). cyclobenzap 2017-0 Yes 5mg Take 1 Univ ers rine 5 mg 7-28 tablet by ity o f tablet 00:00: mouth 3 00 (three) Medical times Branch daily. traMADOL 2017-0 Yes 50mg Take 1 Univers (ULTRAM) 50 7-28 tablet by ity of mg tablet 00:00: mouth [place] 00 every 6 Medical (six) Branch hours as needed for Pain (scale 4-6). Atorvastati Atorvastati No 1{table QD Atorvastat n Calcium n Calcium t} in Calcium 10 MG 10 MG 10 MG Ramipril 10 Ramipril 10 No 1{capsu QD Ramipril MG MG le} 10 MG Trijardy XR Trijardy XR No QD Trijardy 12.5-2.5-10 12.5-2.5-10 XR 00 MG 00 MG 12.5-2.5-1 000 MG CoQ-10 CoQ-10 No CoQ-10 Multi Multi No 1{table QD Multi Vitamin - Vitamin - t} Vitamin - Fish Oil Fish Oil No Fish Oil ZyrTEC ZyrTEC No ZyrTEC Allergy Allergy Allergy Magnesium Magnesium No 1{table QD Magnesium 250 MG 250 MG t_with_ 250 MG a_meal} Zinc 50 MG Zinc 50 MG No 1{table QD Zinc 50 MG t} Vitamin D3 Vitamin D3 No Vitamin D3 125 MCG 125 MCG 125 MCG (5000 UT) (5000 UT) (5000 UT) Folic Acid Folic Acid No Folic Acid Sotalol HCl Sotalol HCl No 1{table BID Sotalol 80 MG 80 MG t} HCl 80 MG Xarelto 20 Xarelto 20 No 1{table QD Xarelto 20 MG MG t_with_ MG food} NovoLOG Mix NovoLOG Mix No NovoLOG 70/30 70/30 Mix 70/30 (70-30) 100 (70-30) 100 (70-30) UNIT/ML UNIT/ML 100 UNIT/ML Turmeric Turmeric No Turmeric Vitamin C Vitamin C No 1{table QD Vitamin C 1000 MG 1000 MG t} 1000 MG Accu-Chek Accu-Chek No Accu-Chek [facility] Family Practic e Accu-Chek [facility] Fastclix Fastclix Fastclix Fam david Lancet Drum Lancet Drum Lancet Practic KARLOS EVERETT Drum e TONY JIMENEZ Accu-Chek Accu-Chek No AccuChek [facility] FastClix FastClix FastClix Fam david Lancing Lancing Lancing Practi c Device 3 Device 3 Device 3 e TIMES A DAY TIMES A DAY TIMES A DAY Iron 325 Iron 325 No 1{table QD Iron 325 (65 Fe) MG (65 Fe) MG t} (65 Fe) MG Accu-Chek Accu-Chek No Accu-Chek [facility] Guide L1-L2 Guide L1-L2 Guide Family Control Control L1-L2 Practic Solution Solution Control e USE USE Solution DIRECTED DIRECTED USE DAILY DAILY DIRECTED DAILY Accu-Chek Accu-Chek No Accu-Chek [facility] test Guide test Guide test Family strips strips strips Practic CHECK 3 CHECK 3 CHECK 3 e TIMES DAILY TIMES DAILY TIMES IN VITRO 90 IN VITRO 90 DAILY IN DAYS DAYS VITRO 90 DAYS Accu-[facility]k [facility] Soft[facility] Softclix Softclix Fam david Lancets Lancets Lancets Practi c TEST TEST TEST e GLUCOSE TID GLUCOSE TID GLUCOSE FOR 90 DAYS FOR 90 DAYS TID FOR 90 DAYS Xarelto 20 Xarelto 20 No 1{table QD Xarelto 20 MG MG t_with_ MG food} [facility]aminoph [facility] en 300 hen 300 Family mg-codeine mg-codeine mg-codeine Practic 30 mg 30 mg 30 mg e tablet TAKE tablet TAKE tablet 1 TO 2 1 TO 2 TAKE 1 TO TABLETS BY TABLETS BY 2 TABLETS MOUTH EVERY MOUTH EVERY BY MOUTH 6 HOURS 6 HOURS EVERY 6 NEEDED FOR NEEDED FOR HOURS PAIN PAIN NEEDED FOR PAIN [facility] 10 mg n 10 mg in 10 mg Famil y tablet TAKE tablet TAKE tablet Practic 1 TABLET BY 1 TABLET BY TAKE 1 e MOUTH EVERY MOUTH EVERY TABLET BY DAY IN THE DAY IN THE MOUTH EVENING EVENING EVERY DAY IN THE EVENING azithromyci azithromyci No azithromyc [facility] n 250 mg n 250 mg in 250 mg Fa awilda tablet tablet tablet Practic e Sotalol HCl Sotalol HCl No 1{table BID Sotalol 80 MG 80 MG t} HCl 80 MG BD BD No BD [facility] Ultra-Fine Ultra-Fine Ultra-Fine Family Mini Pen Mini Pen Mini Pen Pra ctic Needle 31 Needle 31 Needle 31 e gauge x gauge x gauge x 3/16" 3/16" 3/16" INJECT 3-4 INJECT 3-4 INJECT 3-4 TIMES DAILY TIMES DAILY TIMES 90 90 DAILY 90 BD BD No BD [facility] Ultra-Fine Ultra-Fine Ultra-Fine Family Short Pen Short Pen Short Pen Practic Needle 31 Needle 31 Needle 31 e gauge x gauge x gauge x 5/16" USE 3 516" USE 3 04/10" USE 4 TIMES A 4 TIMES A 3 4 TIMES DAY DAY A DAY DentaGel DentaGel No DentaGel Narayan shawn 1.1 % APPLY 1.1 % APPLY 1.1 % Family SMALL SMALL APPLY Practic AMOUNT ON AMOUNT ON SMALL e TOOTHBRUSH TOOTHBRUSH AMOUNT ON AT BEDTIME, AT BEDTIME, TOOTHBRUSH BRUSH ON BRUSH ON AT TEETH, SPIT TEETH, SPIT BEDTIME, AND DO NOT AND DO NOT BRUSH ON RINSE. RINSE. TEETH, SPIT AND DO NOT RINSE. NovoLOG Mix NovoLOG Mix No NovoLOG 70/30 70/30 Mix 70/30 (70-30) 100 (70-30) 100 (70-30) UNIT/ML UNIT/ML 100 UNIT/ML Fluad Quad Fluad Quad No Fluad Quad [facility] (6 (6 ( Family 5yr up)(PF) 5yr up)(PF) 65yr P ractic 60 mcg (15 60 mcg (15 up)(PF) 60 e mcg x mcg x mcg (15 4)/0.5mL IM 4)/0.5mL IM mcg x syringe syringe 4)/0.5mL PHARMACY PHARMACY IM syringe ADMINISTERE ADMINISTERE PHARMACY D D ADMINISTER ED folic acid folic acid No 1 Q1D folic acid [facility] 1 mg tablet 1 mg tablet 1 mg F amily Take 1 Take 1 tablet Practic tablet tablet Take 1 e every day every day tablet by oral by oral every day route. route. by oral route. hydrochloro hydrochloro No hydrochlor [place] thiazide 25 thiazide 25 othiazide Family mg tablet mg tablet 25 mg Prac tic TAKE 1 TAKE 1 tablet e TABLET BY TABLET BY TAKE 1 MOUTH EVERY MOUTH EVERY TABLET BY DAY DAY MOUTH EVERY DAY Multi Multi No 1{table QD Multi Vitamin - Vitamin - t} Vitamin - hydroxychlo hydroxychlo No hydroxychl [facility] roquine 200 roquine 200 oroquine Family mg tablet mg tablet 200 mg Pra ctic tablet e Jardiance Jardiance No Jardiance [facility] 25 mg 25 mg 25 mg Family tablet TAKE tablet TAKE tablet Practic 1 TABLET BY 1 TABLET BY TAKE 1 e MOUTH EVERY MOUTH EVERY TABLET BY DAY IN THE DAY IN THE MOUTH MORNING MORNING EVERY DAY IN THE MORNING metformin metformin No 1 BID metformin [place] ER 500 mg ER 500 mg ER 500 mg Family 24 hr 24 hr 24 hr Practic tablet,exte tablet,exte tablet,ext e nded nded ended release release release Take 1 Take 1 Take 1 tablet tablet tablet twice a day twice a day twice a by oral by oral day by route for route for oral route 90 days. 90 days. for 90 days. Atorvastati Atorvastati No 1{table QD Atorvastat n Calcium n Calcium t} in Calcium 10 MG 10 MG 10 MG metformin metformin No metformin [facility] ER 500 mg ER 500 mg ER 500 mg Family tablet,exte tablet,exte tablet,ext Practic nded nded ended e release 24 release 24 release 24 hr TAKE 1 hr TAKE 1 hr TAKE 1 TABLET TABLET TABLET TWICE A DAY TWICE A DAY TWICE A BY ORAL BY ORAL DAY BY ROUTE FOR ROUTE FOR ORAL ROUTE 90 DAYS. 90 DAYS. FOR 90 DAYS. montelukast montelukast No [facility] 10 mg 10 mg t 10 mg Family tablet TAKE tablet TAKE tablet Practic 1 TABLET BY 1 TABLET BY TAKE 1 e MOUTH EVERY MOUTH EVERY TABLET BY DAY IN THE DAY IN THE MOUTH MORNING MORNING EVERY DAY IN THE MORNING Novolog Mix Novolog Mix No Novolog [facility] 70-30 70-30 Mix 70-30 Family FlexPen FlexPen FlexPen Practi c U-100 U-100 U-100 e Insulin 100 Insulin 100 Insulin unit/mL unit/mL 100 subcutaneou subcutaneou unit/mL s pen Give s pen Give subcutaneo 35 units 35 units us pen before before Give 35 breakfast breakfast units and 70 and 70 before units units breakfast before before and 70 dinner and dinner and units increase as increase as before directed: directed: dinner and TDD 120 TDD 120 increase as directed: TDD 120 Turmeric Turmeric No Turmeric OneTouch OneTouch No OneTouch [facility] shawn Cadena Delica Delica Family Lancets 33 Lancets 33 Lancets 33 Practic gauge USE 3 gauge USE 3 gauge USE e PER DAY FOR PER DAY FOR 3 PER DAY 90 DAYS 90 DAYS FOR 90 DAYS OneTouch OneTouch No 1kit(s) OneTouch [facility] Sur[facility] Plus Delartie Family Lancing Lancing Plus Practic Device kit Device kit Lancing e Take 1 kit Take 1 kit Device kit by miscell. by [employer]. Take 1 kit route. route. by miscell. route. oxybutynin oxybutynin No oxybutynin [place] chloride ER chloride ER chloride Family 10 mg 10 mg ER 10 mg Practic tablet,exte tablet,exte tablet,ext e nded nded ended release 24 release 24 release 24 hr hr hr Folic Acid Folic Acid No Folic Acid prednisone prednisone No prednisone [facility] 10 mg 10 mg 10 mg Family tablet tablet tablet Practic e ramipril 10 ramipril 10 No ramipril [place] mg capsule mg capsule 10 mg Fa awilda TAKE 1 TAKE 1 capsule Practic CAPSULE BY CAPSULE BY TAKE 1 e MOUTH EVERY MOUTH EVERY CAPSULE BY DAY DAY MOUTH EVERY DAY sotalol 80 sotalol 80 No sotalol 80 Village mg tablet mg tablet mg tablet Family TAKE 1 TAKE 1 TAKE 1 Practic TABLET BY TABLET BY TABLET BY e MOUTH 2 MOUTH 2 MOUTH 2 TIMES A TIMES A TIMES A DAY. DAY. DAY. Vitamin C Vitamin C No 1{table QD Vitamin C 1000 MG 1000 MG t} 1000 MG triamcinolo triamcinolo No triamcinol [facility] ne ne one Family acetonide acetonide acetonide Practic 0.1 % 0.1 % 0.1 % e topical topical topical ointment ointment ointment APPLY A APPLY A APPLY A THIN LAYER THIN LAYER THIN LAYER TO AFFECTED TO AFFECTED TO AREA ON ARM AREA ON ARM AFFECTED TWICE A DAY TWICE A DAY AREA ON FOR TWO FOR TWO ARM TWICE WEEKS PER WEEKS PER A DAY FOR MONTH MONTH TWO WEEKS PER MONTH Trijardy XR Trijardy XR No 1 Q1D Trijardy [place] 25 mg-5 25 mg-5 XR 25 mg-5 Fam david mg-1,000 mg mg-1,000 mg mg-1,000 Practic tablet, tablet, mg tablet, e extended extended extended release release release Take 1 Take 1 Take 1 tablet tablet tablet every day every day every day by oral by oral by oral route in route in route in the morning the morning the for 90 for 90 morning days. days. for 90 days. Trulicity Trulicity No Trulicity [place] 1.5 mg/0.5 1.5 mg/0.5 1.5 mg/0.5 Family mL mL mL Practic subcutaneou subcutaneou subcutaneo e s pen s pen us pen injector injector injector INJECT 1.5 INJECT 1.5 INJECT 1.5 MG EVERY MG EVERY MG EVERY WEEK BY WEEK BY WEEK BY SUBCUTANEOU SUBCUTANEOU SUBCUTANEO S ROUTE S ROUTE US ROUTE DIRECTED DIRECTED FOR 30 FOR 30 DIRECTED DAYS. DAYS. FOR 30 DAYS. Xarelto 20 Xarelto 20 No Xarelto 20 Village mg tablet mg tablet mg tablet Family TAKE 1 TAKE 1 TAKE 1 Practic TABLET BY TABLET BY TABLET BY e MOUTH EVERY MOUTH EVERY MOUTH DAY DAY EVERY DAY Zinc 50 MG Zinc 50 MG No 1{table QD Zinc 50 MG t} zinc zinc No zinc [facility] sulfate 50 sulfate 50 sulfate 50 Family mg zinc mg zinc mg zinc Practi c (220 mg) (220 mg) (220 mg) e capsule capsule capsule Accu-Chek Accu-Chek No Accu-Chek [facility] Family Practic e Accu-Chek Accu-Chek No [facility] Fastclix Fastclix Fastclix Fam david Lancet Drum Lancet Drum Lancet Practic KARLOS Hook e TONY JIMENEZ Accu-Chek Accu-Chek No Accu-Chek [facility] FastClix FastClix FastClix Fam david Lancing Lancing Lancing Practi c Device 3 Device 3 Device 3 e TIMES A DAY TIMES A DAY TIMES A DAY Ramipril 10 Ramipril 10 No 1{capsu QD Ramipril MG MG le} 10 MG Accu-Chek Accu-Chek No Accu-Chek [facility] Guide L1-L2 Guide L1-L2 Guide Family Control Control L1-L2 Practic Solution Solution Control e USE USE Solution DIRECTED DIRECTED USE DAILY DAILY DIRECTED DAILY Accu-Chek Accu-Chek No Accu-Chek [facility] Softclix Softclix Softclix Fam david Lancets Lancets Lancets Practi c TEST TEST TEST e GLUCOSE TID GLUCOSE TID GLUCOSE FOR 90 DAYS FOR 90 DAYS TID FOR 90 DAYS atorvastati atorvastati No atorvastat [facility] n 10 mg n 10 mg in 10 mg Famil y tablet TAKE tablet TAKE tablet Practic 1 TABLET BY 1 TABLET BY TAKE 1 e MOUTH EVERY MOUTH EVERY TABLET BY DAY IN THE DAY IN THE MOUTH EVENING EVENING EVERY DAY IN THE EVENING Trijardy XR Trijardy XR No QD Trijardy 12.5-2.5-10 12.5-2.5-10 XR 00 MG 00 MG 12.5-2.5-1 000 MG BD BD [facility] Ultra-Fine Ultra-Fine Ultra-Fine Family Mini Pen Mini Pen Mini Pen Pra ctic Needle 31 Needle 31 Needle 31 e gauge x gauge x gauge x 3/16" 3/16" 3/16" INJECT 3-4 INJECT 3-4 INJECT 3-4 TIMES DAILY TIMES DAILY TIMES 90 90 DAILY 90 BD BD [facility] Ultra-Fine Ultra-Fine Ultra-Fine [facility] Short Pen Short Pen Short Pen Practic Needle 31 Needle 31 Needle 31 e gauge x gauge x gauge x 5/16" USE 3 5/16" USE 3 5/16" USE 4 TIMES A 4 TIMES A 3 4 TIMES DAY DAY A DAY gabapentin gabapentin gabapentin [facility] 300 mg 300 mg 300 mg Family capsule capsule capsule Practi c TAKE 1 TAKE 1 TAKE 1 e CAPSULE BY CAPSULE BY CAPSULE BY MOUTH 3 MOUTH 3 MOUTH 3 TIMES A DAY TIMES A DAY TIMES A FOR 30 FOR 30 DAY FOR 30 DAYS. DAYS. DAYS. Magnesium Magnesium No 1{table QD Magnesium 250 MG 250 MG t_with_ 250 MG a_meal} montelukast montelukast [facility] 10 mg 10 mg t 10 mg Family tablet TAKE tablet TAKE tablet Practic 1 TABLET BY 1 TABLET BY TAKE 1 e MOUTH EVERY MOUTH EVERY TABLET BY DAY IN THE DAY IN THE MOUTH MORNING MORNING EVERY DAY IN THE MORNING Novolog Mix Novolog Mix No Novolog [facility] 70-30 70-30 Mix 70-30 Family FlexPen FlexPen FlexPen Practi c U-100 U-100 U-100 e Insulin 100 Insulin 100 Insulin unit/mL unit/mL 100 subcutaneou subcutaneou unit/mL s pen Give s pen Give subcutaneo 35 units 35 units us pen before before Give 35 breakfast breakfast units and 70 and 70 before units units breakfast before before and 70 dinner and dinner and units increase as increase as before directed: directed: dinner and TDD 120 TDD 120 increase as directed: TDD 120 [facility] Delica Delica Delica Family Lancets 33 Lancets 33 Lancets 33 Practic gauge USE 3 gauge USE 3 gauge USE e PER DAY FOR PER DAY FOR 3 PER DAY 90 DAYS 90 DAYS FOR 90 DAYS ZyrTEC ZyrTEC No ZyrTEC Allergy Allergy Allergy OneTouch OneTouch No 1kit(s) [facility] Delica Plus Delica Plus Delica Family Lancing Lancing Plus Practic Device kit Device kit Lancing e Take 1 kit Take 1 kit Device kit by miscell. by miscell. Take 1 kit route. route. by miscell. route. OneTouch OneTouch No 3strip( Q1D [facility] Verio test Verio test s) Verio test Family strips Take strips Take strips Practic 3 strips 3 strips Take 3 e every day every day strips by miscell. by miscell. every day route for route for by 90 days. 90 days. miscell. route for 90 days. ramipril 10 ramipril 10 No ramipril [place] mg capsule mg capsule 10 mg Fa awilda TAKE 1 TAKE 1 capsule Practic CAPSULE BY CAPSULE BY TAKE 1 e MOUTH EVERY MOUTH EVERY CAPSULE BY DAY DAY MOUTH EVERY DAY Fish Oil Fish Oil No Fish Oil sotalol 80 sotalol 80 No sotalol 80 Village mg tablet mg tablet mg tablet Family TAKE 1 TAKE 1 TAKE 1 Practic TABLET BY TABLET BY TABLET BY e MOUTH 2 MOUTH 2 MOUTH 2 TIMES A TIMES A TIMES A DAY. DAY. DAY. triamcinolo triamcinolo No triamcinol [facility] ne ne one Family acetonide acetonide acetonide Practic 0.1 % 0.1 % 0.1 % e topical topical topical ointment ointment ointment APPLY A APPLY A APPLY A THIN LAYER THIN LAYER THIN LAYER TO AFFECTED TO AFFECTED TO AREA ON ARM AREA ON ARM AFFECTED TWICE A DAY TWICE A DAY AREA ON FOR TWO FOR TWO ARM TWICE WEEKS PER WEEKS PER A DAY FOR MONTH MONTH TWO WEEKS PER MONTH Trijardy XR Trijardy XR No 1 Q1D Trijardy [place] 25 mg-5 25 mg-5 XR 25 mg-5 Fam david mg-1,000 mg mg-1,000 mg mg-1,000 Practic tablet, tablet, mg tablet, e extended extended extended release release release Take 1 Take 1 Take 1 tablet tablet tablet every day every day every day by oral by oral by oral route in route in route in the morning the morning the for 90 for 90 morning days. days. for 90 days. Iron 325 Iron 325 No 1{table QD Iron 325 (65 Fe) MG (65 Fe) MG t} (65 Fe) MG Xarelto 20 Xarelto 20 No Xarelto 20 Village mg tablet mg tablet mg tablet Family TAKE 1 TAKE 1 TAKE 1 Practic TABLET BY TABLET BY TABLET BY e MOUTH EVERY MOUTH EVERY MOUTH DAY DAY EVERY DAY zinc zinc No zinc [place] sulfate 50 sulfate 50 sulfate 50 Family mg zinc mg zinc mg zinc Practi c (220 mg) (220 mg) (220 mg) e capsule capsule capsule atorvastati atorvastati No atorvastat [facility] n 10 mg n 10 mg in 10 mg Famil y tablet TAKE tablet TAKE tablet Practic 1 TABLET BY 1 TABLET BY TAKE 1 e MOUTH EVERY MOUTH EVERY TABLET BY DAY IN THE DAY IN THE MOUTH EVENING EVENING EVERY DAY IN THE EVENING BD Camila 2nd BD Camila 2nd No BD Camila [place] Gen Pen Gen Pen 2nd Gen Family Needle 32 Needle 32 Pen Needle Practic gauge x gauge x 32 gauge x e " " " Vitamin D3 Vitamin D3 No Vitamin D3 125 MCG 125 MCG 125 MCG (5000 UT) (5000 UT) (5000 UT) BD BD No BD [place] Ultra-Fine Ultra-Fine Ultra-Fine Family Short Pen Short Pen Short Pen Practic Needle 31 Needle 31 Needle 31 e gauge x gauge x gauge x 04/10" USE 3 04/10" USE 3 04/10" USE 4 TIMES A 4 TIMES A 3 4 TIMES DAY DAY A DAY cephalexin cephalexin No cephalexin [place] 500 mg 500 mg 500 mg Family capsule capsule capsule Practi c TAKE 1 TAKE 1 TAKE 1 e CAPSULE CAPSULE CAPSULE TWICE A DAY TWICE A DAY TWICE A FOR 5 DAYS FOR 5 DAYS DAY FOR 5 DAYS chlorthalid chlorthalid No chlorthali [place] one 25 mg one 25 mg done 25 mg Family tablet 1/2 tablet 1/2 tablet 1/2 Practic TABLET WITH TABLET WITH TABLET e FOOD ORALLY FOOD ORALLY WITH FOOD ONCE A DAY ONCE A DAY ORALLY 60 DAY(S) 60 DAY(S) ONCE A DAY 60 DAY(S) CoQ-10 CoQ-10 No CoQ-10 cholecalcif cholecalcif No cholecalci [place] caterina bowman Family (vitamin (vitamin (vitamin Pra ctic D3) take 1 D3) take 1 D3) take 1 e tablet (25 tablet (25 tablet (25 mcg) by mcg) by mcg) by mouth daily mouth daily mouth daily DentaGel DentaGel No DentaGel Narayan shawn 1.1 % BRUSH 1.1 % BRUSH 1.1 % Family TEETH, TEETH, BRUSH Practic EXPECTORATE EXPECTORATE TEETH, e , DO NOT , DO NOT EXPECTORAT RINSE RINSE E, DO NOT RINSE iron Take 1 iron Take 1 No iron Take Village tablet by tablet by 1 tablet F amily mouth daily mouth daily by mouth Practic daily e multivitami multivitami No multivitam [place] n Take 1 n Take 1 in Take 1 Fa awilda tablet by tablet by tablet by Practic mouth once mouth once mouth once e daily daily daily mupirocin 2 mupirocin 2 No mupirocin [place] % topical % topical 2 % Famil y ointment ointment topical Prac tic APPLY TO APPLY TO ointment e NOSE 2 NOSE 2 APPLY TO TIMES A DAY TIMES A DAY NOSE 2 FOR 10 FOR 10 TIMES A DAYS. DAYS. DAY FOR 10 DAYS. Novolog Mix Novolog Mix No Novolog [place] 70-30 70-30 Mix 70-30 Family FlexPen FlexPen FlexPen Practi c U-100 U-100 U-100 e Insulin 100 Insulin 100 Insulin unit/mL unit/mL 100 subcutaneou subcutaneou unit/mL s pen Give s pen Give subcutaneo 35 units 35 units us pen before before Give 35 breakfast breakfast units and 70 and 70 before units units breakfast before before and 70 dinner and dinner and units increase as increase as before directed: directed: dinner and TDD 120 TDD 120 increase as directed: TDD 120 OneTouch OneTouch No OneTouch [facility] shawn Delica Plus Delica Plus Delica Family Lancet 33 Lancet 33 Plus Pract ic gauge USE 3 gauge USE 3 Lancet 33 e TIMES A DAY TIMES A DAY gauge USE 3 TIMES A DAY [facility] Delica Plus Delica Family Lancing Lancing Plus Practic Device kit Device kit Lancing e Take 1 kit Take 1 kit Device kit by miscell. by miscell. Take 1 kit route. route. by miscell. route. OneTouch OneTouch No 3strip( Q1D OneTouch [facility] Verio test Verio test s) Verio test Family strips Take strips Take strips Practic 3 strips 3 strips Take 3 e every day every day strips by miscell. by miscell. every day route for route for by 90 days. 90 days. miscell. route for 90 days. ramipril 10 ramipril 10 No ramipril [place] mg capsule mg capsule 10 mg Fa awilda TAKE 1 TAKE 1 capsule Practic CAPSULE BY CAPSULE BY TAKE 1 e MOUTH EVERY MOUTH EVERY CAPSULE BY DAY DAY MOUTH EVERY DAY sotalol 80 sotalol 80 No sotalol 80 Village mg tablet mg tablet mg tablet Family TAKE 1 TAKE 1 TAKE 1 Practic TABLET BY TABLET BY TABLET BY e MOUTH 2 MOUTH 2 MOUTH 2 TIMES A TIMES A TIMES A DAY. DAY. DAY. triamcinolo triamcinolo No triamcinol [facility] ne ne one Family acetonide acetonide acetonide Practic 0.1 % 0.1 % 0.1 % e topical topical topical ointment ointment ointment APPLY A APPLY A APPLY A THIN LAYER THIN LAYER THIN LAYER TO AFFECTED TO AFFECTED TO AREA ON ARM AREA ON ARM AFFECTED TWICE A DAY TWICE A DAY AREA ON FOR TWO FOR TWO ARM TWICE WEEKS PER WEEKS PER A DAY FOR MONTH MONTH TWO WEEKS PER MONTH Trijardy XR Trijardy XR No 1 Q1D Trijardy [place] 25 mg-5 25 mg-5 XR 25 mg-5 Fam david mg-1,000 mg mg-1,000 mg mg-1,000 Practic tablet, tablet, mg tablet, e extended extended extended release release release Take 1 Take 1 Take 1 tablet tablet tablet every day every day every day by oral by oral by oral route in route in route in the morning the morning the for 90 for 90 morning days. days. for 90 days. Xarelto 20 Xarelto 20 No Xarelto 20 [facility] mg tablet mg tablet mg tablet Family TAKE 1 TAKE 1 TAKE 1 Practic TABLET BY TABLET BY TABLET BY e MOUTH EVERY MOUTH EVERY MOUTH DAY DAY EVERY DAY zinc zinc No 1capsul Q1D zinc [place] sulfate 50 sulfate 50 e(s) sulfate 50 Family mg zinc mg zinc mg zinc Practi c (220 mg) (220 mg) (220 mg) e capsule capsule capsule Take 1 Take 1 Take 1 capsule capsule capsule every day every day every day by oral by oral by oral route. route. route. acetaminoph acetaminoph No acetaminop [facility] en 300 en 300 hen 300 Family mg-codeine mg-codeine mg-codeine Practic 30 mg 30 mg 30 mg e tablet TAKE tablet TAKE tablet 1 TABLET BY 1 TABLET BY TAKE 1 MOUTH EVERY MOUTH EVERY TABLET BY 6 HOURS 6 HOURS MOUTH NEEDED NEEDED EVERY 6 HOURS NEEDED atorvastati atorvastati No atorvastat [facility] n 10 mg n 10 mg in 10 mg Famil y tablet TAKE tablet TAKE tablet Practic 1 TABLET BY 1 TABLET BY TAKE 1 e MOUTH EVERY MOUTH EVERY TABLET BY DAY IN THE DAY IN THE MOUTH EVENING EVENING EVERY DAY IN THE EVENING BD Camila 2nd BD Camila 2nd No BD Camila [place] Gen Pen Gen Pen 2nd Gen Family Needle 32 Needle 32 Pen Needle Practic gauge x gauge x 32 gauge x e " " " BD BD [facility] Ultra-Fine Ultra-Fine Ultra-Fine [facility] Mini Pen Mini Pen Mini Pen Pra ctic Needle 31 Needle 31 Needle 31 e gauge x gauge x gauge x 3/16" USE 3/16" USE 3/16" USE DIRECTED DIRECTED 3 TIMES 3 TIMES DIRECTED 3 DAILY DAILY TIMES DAILY BD BD No BD [facility] Ultra-Fine Ultra-Fine Ultra-Fine [facility] Short Pen Short Pen Short Pen Practic Needle 31 Needle 31 Needle 31 e gauge x gauge x gauge x 5/16" USE 3 5/16" USE 3 516" USE 4 TIMES A 4 TIMES A 3 4 TIMES DAY DAY A DAY cephalexin cephalexin No cephalexin [facility] 500 mg 500 mg 500 mg Family capsule capsule capsule Practi c TAKE 1 TAKE 1 TAKE 1 e CAPSULE CAPSULE CAPSULE TWICE A DAY TWICE A DAY TWICE A FOR 5 DAYS FOR 5 DAYS DAY FOR 5 DAYS chlorthalid chlorthalid No chlorthali [facility] one 25 mg one 25 mg done 25 mg Family tablet 1/2 tablet 1/2 tablet 1/2 Practic TABLET WITH TABLET WITH TABLET e FOOD ORALLY FOOD ORALLY WITH FOOD ONCE A DAY ONCE A DAY ORALLY 60 DAY(S) 60 DAY(S) ONCE A DAY 60 DAY(S) cholecalcif cholecalcif No cholecalci [facility] caterina caterina ferol [facility] (vitamin (vitamin (vitamin Pra ctic D3) take 1 D3) take 1 D3) take 1 e tablet (25 tablet (25 tablet (25 mcg) by mcg) by mcg) by mouth daily mouth daily mouth daily DentaGel DentaGel No DentaGel Narayan shawn 1.1 % BRUSH 1.1 % BRUSH 1.1 % Family TEETH, TEETH, BRUSH Practic EXPECTORATE EXPECTORATE TEETH, e , DO NOT , DO NOT EXPECTORAT RINSE RINSE E, DO NOT RINSE hydrochloro hydrochloro No hydrochlor [place] thiazide 25 thiazide 25 othiazide Family mg tablet mg tablet 25 mg Prac tic TAKE 1/2 TAKE 1/2 tablet e TABLET BY TABLET BY TAKE 1/2 MOUTH TWICE MOUTH TWICE TABLET BY A DAY A DAY MOUTH TWICE A DAY iron Take 1 iron Take 1 No iron Take Village tablet by tablet by 1 tablet F amily mouth daily mouth daily by mouth Practic daily e metoclopram metoclopram No metoclopra [place] kenzie 10 mg kenzie 10 mg mide 10 mg Family tablet TAKE tablet TAKE tablet Practic 3 TABLETS 3 TABLETS TAKE 3 e BY MOUTH BY MOUTH TABLETS BY DIRECTED DIRECTED MOUTH PER YOUR PER YOUR DIRECTED COLONOSCOPY COLONOSCOPY PER YOUR PREP PACKET PREP PACKET COLONOSCOP Y PREP PACKET multivitami multivitami No multivitam [place] n Take 1 n Take 1 in Take 1 Fa awilda tablet by tablet by tablet by Practic mouth once mouth once mouth once e daily daily daily mupirocin 2 mupirocin 2 No mupirocin [place] % topical % topical 2 % Famil y ointment ointment topical Prac tic APPLY TO APPLY TO ointment e NOSE 2 NOSE 2 APPLY TO TIMES A DAY TIMES A DAY NOSE 2 FOR 10 FOR 10 TIMES A DAYS. DAYS. DAY FOR 10 DAYS. Novolog Mix Novolog Mix No Novolog [place] 70-30 70-30 Mix 70-30 Family FlexPen FlexPen FlexPen Practi c U-100 U-100 U-100 e Insulin 100 Insulin 100 Insulin unit/mL unit/mL 100 subcutaneou subcutaneou unit/mL s pen Give s pen Give subcutaneo 35 units 35 units us pen before before Give 35 breakfast breakfast units and 70 and 70 before units units breakfast before before and 70 dinner and dinner and units increase as increase as before directed: directed: dinner and TDD 100 TDD 100 increase as directed: TDD 100 OneTouch OneTouch No OneTouch Narayan shawn Delica Plus Delica Plus Delica Family Lancet 33 Lancet 33 Plus Pract ic gauge USE gauge USE Lancet 33 e TO TEST TO TEST gauge USE SUGAR 3 SUGAR 3 TO TEST TIMES A DAY TIMES A DAY SUGAR 3 TIMES A DAY OneTouch OneTouch No OneTouch Narayan escobar Delica Plus Delica Plus Delica Family Lancing Lancing Plus Practic Device kit Device kit Lancing e USE USE Device kit DIRECTED. DIRECTED. USE DIRECTED. OneTouch OneTouch No 2strip( Q1D OneTouch [facility] Verio test Verio test s) Verio test Family strips Take strips Take strips Practic 2 strips 2 strips Take 2 e every day every day strips by miscell. by miscell. every day route for route for by 90 days. 90 days. miscell. route for 90 days. ramipril 10 ramipril 10 No ramipril [facility] mg capsule mg capsule 10 mg Fa awilda TAKE 1 TAKE 1 capsule Practic CAPSULE BY CAPSULE BY TAKE 1 e MOUTH EVERY MOUTH EVERY CAPSULE BY DAY DAY MOUTH EVERY DAY sodium,pota sodium,pota No sodium,pot [facility] ssium,mag ssium,mag assium,mag Family sulfates sulfates sulfates Pra ctic 17.5 17.5 17.5 e gram-3.13 gram-3.13 gram-3.13 gram-1.6 gram-1.6 gram-1.6 gram oral gram oral gram oral soln TAKE 1 soln TAKE 1 soln TAKE UNIT BY UNIT BY 1 UNIT BY MOUTH MOUTH MOUTH DIRECTED DIRECTED DIRECTED USED USED USED DIRECTED BY DIRECTED BY DIRECTED YOUR YOUR BY YOUR COLONOSCOPY COLONOSCOPY COLONOSCOP PACKET PACKET Y PACKET INSTRUCTION INSTRUCTION INSTRUCTIO S S FAM sotalol 80 sotalol 80 No sotalol 80 Village mg tablet mg tablet mg tablet Family TAKE 1 TAKE 1 TAKE 1 Practic TABLET BY TABLET BY TABLET BY e MOUTH TWICE MOUTH TWICE MOUTH A DAY A DAY TWICE A DAY Trijardy XR Trijardy XR No 1 Q1D Trijardy [facility] 25 mg-5 25 mg-5 XR 25 mg-5 Fam david mg-1,000 mg mg-1,000 mg mg-1,000 Practic tablet, tablet, mg tablet, e extended extended extended release release release Take 1 Take 1 Take 1 tablet tablet tablet every day every day every day by oral by oral by oral route in route in route in the morning the morning the for 90 for 90 morning days. days. for 90 days. Xarelto 20 Xarelto 20 No Xarelto 20 [facility] mg tablet mg tablet mg tablet Family TAKE 1 TAKE 1 TAKE 1 Practic TABLET BY TABLET BY TABLET BY e MOUTH EVERY MOUTH EVERY MOUTH DAY DAY EVERY DAY zinc zinc No 1capsul Q1D zinc [facility] sulfate 50 sulfate 50 e(s) sulfate 50 Family mg zinc mg zinc mg zinc Practi c (220 mg) (220 mg) (220 mg) e capsule capsule capsule Take 1 Take 1 Take 1 capsule capsule capsule every day every day every day by oral by oral by oral route. route. route. Immunizations Ordered Filled Immunization Date Status Comments [facility] e Immunization Name Name influenza, influenza, 2021-09-27 Completed [facility] injectable, injectable, 00:00:00 Practice quadrivalent quadrivalent influenza, influenza, 2021-09-27 Completed [facility] injectable, injectable, 00:00:00 Practice quadrivalent quadrivalent influenza, influenza, 2021-09-27 Completed [facility] injectable, injectable, 00:00:00 Practice quadrivalent quadrivalent influenza, influenza, Unknown Completed [facility] injectable, injectable, Practice quadrivalent quadrivalent Vital Signs Vital Name Observation Time Observation Value Comments Source Height 2023-08-28 00:00:00 69 [in_i] [facility] BMI (Body Mass 2023-08-28 00:00:00 30.5 kg/m2 [facility] Index) Practice BP Systolic 2023-08-28 00:00:00 129 mm[Hg] [facility] BP Diastolic 2023-08-28 00:00:00 71 mm[Hg] [facility] Body Weight 2023-08-28 00:00:00 206.6 [lb_av] [facility] height 2023-04-19 11:00:00 69 [in_i] [facility] weight 2023-04-19 11:00:00 214.2 [lb_av] [facility] temperature 2023-04-19 11:00:00 97.6 [degF] Common S pirit [facility] bmi 2023-04-19 11:00:00 31.63 kg/m2 [facility] oximetry 2023-04-19 11:00:00 99 % Common [facility] respiratory rate 2023-04-19 11:00:00 18 /min Comm on [facility] blood pressure 2023-04-19 11:00:00 135 mm[Hg] [facility] - systolic [facility] blood pressure 2023-04-19 11:00:00 60 mm[Hg] Common [facility] - diastolic [facility] BP Diastolic 2023-02-26 00:00:00 72 mm[Hg] [facility] Height 2023-02-26 00:00:00 69 [in_i] [facility] BMI (Body Mass 2023-02-26 00:00:00 32.5 kg/m2 [facility] Practice BP Systolic 2023-02-26 00:00:00 152 mm[Hg] [facility] Practice Body Weight 2023-02-26 00:00:00 219.8 [lb_av] [facility] Practice height 2022-10-18 10:15:00 69 [in_i] [facility] weight 2022-10-18 10:15:00 216 [lb_av] [facility] temperature 2022-10-18 10:15:00 98.1 [degF] [facility] bmi 2022-10-18 10:15:00 31.89 kg/m2 [facility] oximetry 2022-10-18 10:15:00 99 % [facility] respiratory rate 2022-10-18 10:15:00 18 /min Comm on [facility] blood pressure 2022-10-18 10:15:00 168 mm[Hg] Common [facility] - systolic [facility] blood pressure 2022-10-18 10:15:00 68 mm[Hg] [facility] - diastolic [facility] BP Diastolic 2022-09-14 00:00:00 72 mm[Hg] [facility] Height 2022-09-14 00:00:00 69 [in_i] [facility] BMI (Body Mass 2022-09-14 00:00:00 31.6 kg/m2 [facility]) Practice BP Systolic 2022-09-14 00:00:00 151 mm[Hg] [facility] Body Weight 2022-09-14 00:00:00 214 [lb_av] [facility] BP Diastolic 2022-03-23 00:00:00 74 mm[Hg] [facility] Height 2022-03-23 00:00:00 69 [in_i] [facility] BMI (Body Mass 2022-03-23 00:00:00 33.8 kg/m2 [facility] Index) Practice BP Systolic 2022-03-23 00:00:00 146 mm[Hg] [facility] Body Weight 2022-03-23 00:00:00 229 [lb_av] [facility] BP Diastolic 2021-11-15 00:00:00 57 mm[Hg] [facility] Height 2021-11-15 00:00:00 69 [in_i] [facility] BMI (Body Mass 2021-11-15 00:00:00 32.8 kg/m2 [facility] Index) Practice BP Systolic 2021-11-15 00:00:00 124 mm[Hg] [facility] Body Weight 2021-11-15 00:00:00 222.4 [lb_av] [facility] Systolic blood 2021-09-01 20:56:00 146 mm[Hg] Univer sity of pressure [facility] Diastolic blood 2021-09-01 20:56:00 57 mm[Hg] Unive rsity of [facility] Heart rate 2021-09-01 20:56:00 60 /min [facility] Body temperature 2021-09-01 20:56:00 36.33 Neela Univ ersity of [facility] Respiratory rate 2021-09-01 20:56:00 18 /min [facility] Oxygen saturation in 2021-09-01 20:56:00 95 /min [facility] Arterial blood by [facility] Pulse oximetry Branch Body height 2021-09-01 20:05:00 175.3 cm [facility] Body weight 2021-09-01 20:05:00 98.884 kg [facility] BMI 2021-09-01 20:05:00 32.19 kg/m2 [facility] BP Diastolic 2021-08-16 00:00:00 69 mm[Hg] [facility] Height 2021-08-16 00:00:00 69 [in_i] [facility] BMI (Body Mass 2021-08-16 00:00:00 33.5 kg/m2 [facility]) Practice BP Systolic 2021-08-16 00:00:00 163 mm[Hg] [facility] Body Weight 2021-08-16 00:00:00 226.8 [lb_av] [facility] BP Diastolic 2021-05-16 00:00:00 74 mm[Hg] [facility] Height 2021-05-16 00:00:00 69 [in_i] [facility] BMI (Body Mass 2021-05-16 00:00:00 33.5 kg/m2 [facility]) Practice BP Systolic 2021-05-16 00:00:00 150 mm[Hg] [facility] Body Weight 2021-05-16 00:00:00 227 [lb_av] [facility] BP Diastolic 2021-02-10 00:00:00 61 mm[Hg] [facility] Height 2021-02-10 00:00:00 69 [in_i] [facility] BMI (Body Mass 2021-02-10 00:00:00 33.7 kg/m2 [facility]) Practice BP Systolic 2021-02-10 00:00:00 133 mm[Hg] [facility] Body Weight 2021-02-10 00:00:00 228 [lb_av] [facility] BP Diastolic 2020-10-13 00:00:00 82 mm[Hg] [facility] Height 2020-10-13 00:00:00 69 [in_i] [facility] BMI (Body Mass 2020-10-13 00:00:00 34.6 kg/m2 [facility]) Practice BP Systolic 2020-10-13 00:00:00 134 mm[Hg] [facility] Body Weight 2020-10-13 00:00:00 234 [lb_av] [facility] Systolic blood 2020-02-11 18:46:00 131 mm[Hg] Univer sity of pressure [facility] Diastolic blood 2020-02-11 18:46:00 70 mm[Hg] Unive rsity of pressure [facility] Heart rate 2020-02-11 18:46:00 61 /min [facility] Body height 2020-02-11 18:46:00 175.3 cm [facility] Body weight 2020-02-11 18:46:00 102.059 kg [facility] BMI 2020-02-11 18:46:00 33.23 kg/m2 [facility] Systolic blood 2020-02-11 18:46:00 131 mm[Hg] Univer sity of pressure [facility] Diastolic blood 2020-02-11 18:46:00 70 mm[Hg] Unive rsity of pressure [facility] Heart rate 2020-02-11 18:46:00 61 /min [facility] Body height 2020-02-11 18:46:00 175.3 cm [facility] Body weight 2020-02-11 18:46:00 102.059 kg [facility] BMI 2020-02-11 18:46:00 33.23 kg/m2 [facility] Body height 2020-01-16 15:28:00 175.3 cm [facility] Body weight 2020-01-16 15:28:00 102.059 kg [facility] BMI 2020-01-16 15:28:00 33.23 kg/m2 [facility] Systolic blood 2019-12-25 19:55:00 123 mm[Hg] Univer sity of pressure [facility] Diastolic blood 2019-12-25 19:55:00 63 mm[Hg] Unive rsity of pressure [facility] Heart rate 2019-12-25 19:55:00 68 /min [facility] Body height 2019-12-25 19:55:00 175.3 cm [facility] Body weight 2019-12-25 19:55:00 102.059 kg [facility] BMI 2019-12-25 19:55:00 33.23 kg/m2 [facility] Systolic blood 2023-06-05 15:58:00 142 mm[Hg] Method [facility] pressure Diastolic blood 2023-06-05 15:58:00 67 mm[Hg] [facility] pressure Heart rate 2023-06-05 15:58:00 48 /min [facility] Body height 2023-06-05 15:58:00 175.3 cm [facility] Body weight 2023-06-05 15:58:00 96.163 kg [facility] BMI 2023-06-05 15:58:00 31.31 kg/m2 [facility] Systolic blood 2021-05-31 16:13:00 148 mm[Hg] [facility] pressure Diastolic blood 2021-05-31 16:13:00 66 mm[Hg] [facility] pressure Heart rate 2021-05-31 16:13:00 49 /min [facility] Body height 2021-05-31 16:13:00 175.3 cm [facility] Body weight 2021-05-31 16:13:00 102.059 kg [facility] BMI 2021-05-31 16:13:00 33.23 kg/m2 [facility] Procedures Procedure Date / Time Performing Clinician Source Performed CV STRESS TEST NUCLEAR 2023-06-27 19:32:29 Everett Bone [facility] CARDIO NM MYOCARDIAL PERFUSION 2023-06-27 19:32:29 [facility] REST STRESS 1 DAY ECG 12-LEAD 2023-06-05 15:01:[address] LUMBAR SPINE WO 2023-05-02 17:01:45 Willard Navarro [facility] CONTRAST XR LUMBAR SPINE 2 OR 3 2023-04-04 16:04:41 Willard Navarro [facility] VW XR LUMBAR SPINE 2 OR 3 2022-10-04 16:35:32 [facility] VW Back Surgery 2022-03-28 00:00:00 [facility] Fam ly Practice [id number] CONSENT 2021-09-01 05:01:00 [facility] 2021-05-31 16:17:04 Everett Bone Ho spital NON [facility] 2020-01-28 06:01:00 Doctor Unassigned, No [facility] VW 2020-01-22 18:13:36 Marline Vick [facility] EXTERNAL PROVIDER 2020-01-19 06:01:00 Doctor Unassigned, No [facility] [place] RECORDS Name Medical Branch REFERRAL- 2020-01-01 06:01:00 Doctor Unassigned, No [facility]RESPONSE Name Medical Branch ASSIGNMENT OF BENEFITS 2019-12-25 19:44:02 Doctor Unassigned, No [facility] Name Medical Branch Colonoscopy 2013-02-24 00:00:00 [facility] Fami ly Practice Tonsillectomy [facility] Practice Knee Arthroscopy/surgery [facility] Family Practice Unlisted Px [facility] Family Hands/fingers Practice Procedure on Neck [facility] Practice Unlisted Px Foot/toes [facility] Fa awilda Practice Plan of Care Planned Activity Planned Date Details Comments Source Future Scheduled Test 2023-10-24 COVID-19 VACCINE (#1) [facility] 18:19:57 [code = COVID-19 VACCINE (#1)] Future Scheduled Test 2023-10-24 65+ PNEUMOCOCCAL [facility] 18:19:57 VACCINE (1 - PCV) [code = 65+ PNEUMOCOCCAL VACCINE (1 - PCV)] Future Scheduled Test 2023-10-24 Hepatitis C screening [facility] 18:19:57 (procedure) [code = 660777072] Future Scheduled Test 2023-10-24 SHINGLES VACCINES (1 [facility] 18:19:57 of 2) [code = SHINGLES VACCINES (1 of 2)] Future Scheduled Test 2023-10-24 INFLUENZA VACCINE [facility] 18:19:57 (#1) [code = INFLUENZA VACCINE (#1)] Future Scheduled Test 2023-10-02 COVID-19 VACCINE (#1) [facility] 03:18:16 [code = COVID-19 VACCINE (#1)] Future Scheduled Test 2023-10-02 65+ PNEUMOCOCCAL [facility] 03:18:16 VACCINE (1 - PCV) [code = 65+ PNEUMOCOCCAL VACCINE (1 - PCV)] Future Scheduled Test 2023-10-02 Hepatitis C screening [facility] 03:18:16 (procedure) [code = [id number]] Future Scheduled Test 2023-10-02 SHINGLES VACCINES (1 [facility] 03:18:16 of 2) [code = SHINGLES VACCINES (1 of 2)] Future Scheduled Test 2023-10-02 INFLUENZA VACCINE [facility] 03:18:16 (#1) [code = INFLUENZA VACCINE (#1)] Future Scheduled Test 2023-10-02 COVID-19 VACCINE (#1) [facility] 03:18:16 [code = COVID-19 VACCINE (#1)] Future Scheduled Test 2023-10-02 65+ PNEUMOCOCCAL [facility] 03:18:16 VACCINE (1 - PCV) [code = 65+ PNEUMOCOCCAL VACCINE (1 - PCV)] Future Scheduled Test 2023-10-02 Hepatitis C screening [facility] 03:18:16 (procedure) [code = [id number]] Future Scheduled Test 2023-10-02 SHINGLES VACCINES (1 [facility] 03:18:16 of 2) [code = SHINGLES VACCINES (1 of 2)] Future Scheduled Test 2023-10-02 INFLUENZA VACCINE [facility] 03:18:16 (#1) [code = INFLUENZA VACCINE (#1)] Future Scheduled Test 2023-09-20 COVID-19 VACCINE (#1) [facility] 04:34:47 [code = COVID-19 VACCINE (#1)] Future Scheduled Test 2023-09-20 65+ PNEUMOCOCCAL [facility] 04:34:47 VACCINE (1 - PCV) [code = 65+ PNEUMOCOCCAL VACCINE (1 - PCV)] Future Scheduled Test 2023-09-20 Hepatitis C screening [facility] 04:34:47 (procedure) [code = [id number]] Future Scheduled Test 2023-09-20 SHINGLES VACCINES (1 [facility] 04:34:47 of 2) [code = SHINGLES VACCINES (1 of 2)] Future Scheduled Test 2023-09-20 INFLUENZA VACCINE [facility] 04:34:47 (#1) [code = INFLUENZA VACCINE (#1)] Diagnostic Test 2023-08-28 glucose, fingerstick, Narayan shawn Family Pending 00:00:00 blood [code = Practice glucose, fingerstick, blood] Diagnostic Test 2023-08-28 hemoglobin A1C, [facility] F amily Pending 00:00:00 fingerstick [code = Practice hemoglobin A1C, fingerstick] Future Scheduled Test 2021-12-09 COVID-19 VACCINE (1) [facility] 14:42:59 [code = COVID-19 VACCINE (1)] Future Scheduled Test 2021-12-09 65+ PNEUMOCOCCAL [facility] 14:42:59 VACCINE (1 of 2 - PPSV23) [code = 65+ PNEUMOCOCCAL VACCINE (1 of 2 - PPSV23)] Future Scheduled Test 2021-12-09 Hepatitis C screening [facility] 14:42:59 (procedure) [code = [id number]] Future Scheduled Test 2021-12-09 SHINGLES VACCINES [facility] 14:42:59 (#1) [code = SHINGLES VACCINES (#1)] Future Scheduled Test 2021-12-09 INFLUENZA VACCINE [facility] 14:42:59 [code = INFLUENZA VACCINE] Future Appointment 2024-02-27 Karlos Jimenez, Brooks [facility] 00:00:[address]; Practice [address] [address] Future Appointment 2024-02-25 Brooks Louise [facility] 10:45:[address]; Practice [address], [place] [address] Encounters Start End Encounter Admission Attending Care Care Encounter Source Date/Time Date/Time Type Type Clinicians Facility Department ID 2022-10-18 Outpatient [facility] [id number] Common 10:05:01 [facility] 2022-10-12 Outpatient [facility] [id number] Common 09:17:05 [facility] 2022-01-06 Outpatient [facility] [id number] Common 09:31:02 [facility] 2021-12-21 [facility] [id number] Common 12:30:23 [id number] [facility] 2023-08-28 2023-08-28 Outpatient Daniel_T_HO VFP VFP 114 [id number] [facility] 00:00:00 00:00:00 KLEBER [id number] Family Practic e 2023-08-28 2023-08-28 Outpatient Daniel_T_HO VFP VFP [id number] 00:00:00 00:00:00 KLEBER [id number] Family Practic e 2023-08-28 2023-08-28 Outpatient Daniel_T_HO VFP VFP 114 [facility] 00:00:00 00:00:00 Danielle_ [id number] Family Practic e 2023-08-28 2023-08-28 Outpatient Tony_T_HO VFP VFP 114 [facility] 00:00:00 00:00:00 KLEBER [id number] Family Practic e 2023-08-28 2023-08-28 Karlos VFP [place] - [id number] V illage 00:00:00 00:00:00 Randa [facility] Family Jimenez, Jake - Practi nathan MD: [id number] [place] - e Shadow VM[address]HOU[address], [place] [address] , Ph. 2023-07-17 2023-07-17 Telephone [place], 1.2.840.1 [id number] Methodi 00:00:00 00:00:[address] 3.430.2.7 Hospit a .3.491005 l .8 2023-07-17 2023-07-17 Telephone [place], 1.2.840.1 [id number] [id number] Methodi 00:00:00 00:00:[address] 3.430.2.7 Hospit a .3.406461 l .8 2023-06-26 2023-06-26 Outpatient SMITHA, [facility] [id number] Coden 00:00:00 00:00:00 EVERETT [address] 2023-06-12 2023-06-12 Outpatient Tony_T_HO VFP VFP [address] [place] [address] 00:00:00 00:00:00 KLEBER [id number] Family Practic e 2023-06-05 2023-06-05 Office [place], 1.2.840.1 [id number] Methodi 10:40:00 12:39:46 Visit Everett Cook50.1.[address] 3.430.2.7 Hospit a .3.105127 l .8 2023-06-05 2023-06-05 [facility], 1.2.840.1 [id number] Methodi 10:40:00 12:39:46 Visit Everett HawaJuan C [address]888.1.[address] 3.430.2.7 Hospit a .3.039847 l .8 2023-05-22 2023-05-22 [facility] [place], 1.2.840.1 [id number] Methodi 00:00:00 00:00:00 Everett Wilson [address]1.[address] 3.430.2.7 Hospit a .3.592525 l .8 2023-05-22 2023-05-22 [facility] [place], 1.2.840.1 [id number] Methodi 00:00:00 00:00:00 Everett Wilson [address] 3.430.2.7 Hospit a .3.725492 l .8 2023-05-09 2023-05-09 [facility], 1.2.840.1 [id number] Methodi 11:10:00 11:44:22 Visit Willard Montenegro 96960.1.1 [address] 3.430.2.7 Hospit a .3.500798 l .8 2023-05-09 2023-05-09 [facility], 1.2.840.1 [id number] Methodi 11:10:00 11:44:22 Visit Willard Montenegro 65313.1.1 993 s t 3.430.2.7 Hospit a .3.445784 l .8 2023-05-02 2023-05-02 [facility], 1.2.840.1 [id number] Methodi 11:24:03 23:59:00 Encounter Willard Montenegro 50567.1.[address] 3.430.2.7 Hospit a .3.361567 l .8 2023-05-02 2023-05-02 [facility], 1.2.840.1 [id number] Methodi 11:24:03 23:59:00 Encounter Willard Montenegro [address]605.1.[address] 3.430.2.7 Hospit a .3.621665 l .8 2023-05-02 2023-05-02 Travel 1.2.840.1 1.2.441.646 [id number] Methodi 00:00:00 00:00:[address] 3.430.2.7 0.2.7.3.698 Ho spita .3.056607 084.8 l .8 2023-05-02 2023-05-02 Travel 1.2.840.1 1.2.138.333 [id number] Methodi 00:00:00 00:00:[address] 3.430.2.7 0.2.7.3.698 Ho spita .3.077469 084.8 l .8 2023-04-19 2023-04-19 OFFICE STLMLC STLMLC [id number] Co mmon 00:00:00 00:00:00 VISIT Spirit ESTAB PT - CHI LEVEL 3 [facility] 2023-04-04 2023-04-04 Office Ramon, 1.2.840.1 [id number] Methodi 10:40:00 11:43:50 Visit Willard Montenegro 22943.1.1 161 s t 3.430.2.7 Hospit a .3.588052 l .8 2023-04-04 2023-04-04 Office Ramon, 1.2.840.1 [id number] Methodi 10:40:00 11:43:50 Visit Willard Montenegro 28800.1.1 161 s t 3.430.2.7 Hospit a .3.362085 l .8 2023-04-04 2023-04-04 Travel 1.2.840.1 1.2.459.573 [id number] Methodi 00:00:00 00:00:[address] 3.430.2.7 0.2.7.3.698 Ho spita .3.280338 084.8 l .8 2023-04-04 2023-04-04 Outpatient RAMON, [facility] [id number] Coden 00:00:00 00:00:00 WILLARD Lewis[address] 2023-04-04 2023-04-04 Travel 1.2.840.1 1.2.617.901 [id number] Methodi 00:00:00 00:00:[address] 3.430.2.7 0.2.7.3.698 Ho spita .3.514781 084.8 l .8 2023-02-26 2023-02-26 Outpatient Daniel_T VFP VFP [id number] [facility] 00:00:00 00:00:00 [id number] Family Practic e 2023-02-26 2023-02-26 Karlos VFP [place] - [id number] V illage 00:00:00 00:00:00 [facility] Family Tony, Medical - Practi nathan VILLAVICENCIO: [id number] [place] - e Shadow VM[address]HOU[address] [facility], [address], [place] [address] , Ph. 2023-02-08 2023-02-08 Wyatt Bone, 1.2.840.1 [id number] Methodi 00:00:00 00:00:00 Everett RJuan C [address]12.1.[address] 3.430.2.7 Hospit a .3.340097 l .8 2023-02-08 2023-02-08 Wyatt Bone 1.2.840.1 [id number] Methodi 00:00:00 00:00:00 Everett RJuan C [address]37.1.[address] 3.430.2.7 Hospit a .3.596108 l .8 2022-10-18 2022-10-18 [facility] [id number] Co mmon 00:00:00 00:00:00 VISIT EST Spir it PT LEVEL 3 - [facility] 2022-10-04 2022-10-04 Office Ramon, 1.2.840.1 [id number] Methodi 10:10:00 10:57:19 Visit Willard Montenegro 19393.1.1 738 s t 3.430.2.7 Hospit a .3.162034 l .8 2022-10-04 2022-10-[address] [facility] [id number] Coden 00:00:00 00:00:00 WILLARD Acuna [address] i st 2022-10-04 2022-10-04 Travel 1.2.840.1 1.2.512.747 [id number] Methodi 00:00:00 00:00:[address] 3.430.2.7 0.2.7.3.698 Ho spita .3.863539 084.8 l .8 2022-09-14 2022-09-14 Outpatient Tony_T VFP VFP [id number] 2-20 [facility] 00:00:00 00:00:00 [id number] Family Practic e 2022-09-14 2022-09-14 Outpatient VFP VFP [id number] [facility] 00:00:00 00:00:00 [id number] Family Practic e 2022-09-14 2022-09-14 Outpatient VFP VFP [id number] [facility] 00:00:00 00:00:00 [id number] Family Practic e 2022-09-14 2022-09-14 Outpatient Daniel_T VFP VFP [id number] 2-20 [facility] 00:00:00 00:00:00 [id number] Family Practic e 2022-09-14 2022-09-14 Outpatient VFP VFP [id number] [facility] 00:00:00 00:00:00 [id number] Family Practic e 2022-09-14 2022-09-14 Outpatient VFP VFP [id number] -[id number] [facility] 00:00:00 00:00:00 [id number] Family Practic e 2022-09-14 2022-09-14 Karlos VFP [place] - [id number] V illage 00:00:00 00:00:00 [facility] Jake Hill - Tammy evans MD: [id number] [place] - e Shadow VM_HOU_[facility], [address], [place] [address] , Ph. 2022-06-28 2022-06-28 Outpatient RAMON, [facility] [id number] Coden 00:00:00 00:00:00 WILLARD 673 Method i 2022-06-28 2022-06-28 Outpatient RAMON, [facility] [id number] Coden 00:00:00 00:00:00 WILLARD 225 Method i 2022-06-06 2022-06-06 Outpatient BONE, [facility] [id number] Coden 00:00:00 00:00:00 EVERETT 456 Method i 2022-05-12 2022-05-12 Outpatient Daniel_T VFP VFP [id number] 2-20 [facility] 00:00:00 00:00:00 [id number] Family Practic e 2022-05-10 2022-05-10 Outpatient RAMON, [facility] [id number] Coden 00:00:00 00:00:00 WILLARD 221 Method i 2022-05-10 2022-05-10 Outpatient RAMON, [facility] [id number] Coden 00:00:00 00:00:00 WILLARD 502 Method i 2022-04-30 2022-04-30 Outpatient Daniel_T VFP VFP [id number] 2-20 [facility] 00:00:00 00:00:00 [id number] Family Practic e 2022-04-14 2022-04-14 Outpatient Daniel_T VFP VFP [id number] 2-20 [facility] 10:14:00 10:14:00 [id number] Family Practic e 2022-04-14 2022-04-14 Outpatient [facility] [id number] Coden 00:00:00 00:00:[address] 2022-04-14 2022-04-14 Outpatient RAMON, [facility] [id number] Coden 00:00:00 00:00:00 WILLARD 113 Method i 2022-03-28 2022-04-01 Inpatient TORRES, [facility] 021 [id number] Coden 00:00:00 00:00:00 POMERARII 460 Method i 2022-03-24 2022-03-24 Outpatient RAMON, [facility] [id number] Coden 00:00:00 00:00:00 WILLARD [address] 2022-03-23 2022-03-23 Karlosdickson Jimenez_T VFP PR - [id number] 0 [facility] 00:00:00 00:00:00 [facility] [id number] Family JimenezJake - Tammy evans MD: [id number] VM_HOU_Shad e Shadow ow [place] [facility], [address], [place] [address] , Ph. 2022-03-13 2022-03-13 Outpatient WOOD, [facility] [id number] Coden 00:00:00 00:00:00 WILLARD [address] 2022-03-13 2022-03-13 Outpatient WOOD, [facility] [id number] Coden 00:00:00 00:00:00 WILLARD [address] 2022-03-13 2022-03-13 Outpatient WOOD, [facility] [id number] Coden 00:00:00 00:00:00 WILLARD 717 Method i 2022-02-08 2022-02-08 Outpatient WOOD, [facility] [id number] Coden 00:00:00 00:00:00 WILLARD [address] 2022-02-08 2022-02-08 Outpatient WOOD, [facility] [id number] Coden 00:00:00 00:00:00 WILLARD [address] 2022-01-28 2022-01-28 Outpatient WOOD, [facility] [id number] Coden 00:00:00 00:00:00 WILLARD [address] 2022-01-09 2022-01-09 Outpatient WOOD, [facility] [id number] Coden 00:00:00 00:00:00 WILLARD [address] 2021-12-23 2021-12-23 Outpatient Tony_T VFP [facility] [id number] [facility] 03:49:00 03:49:00 [id number] Family Camilo garibay 2021-12-09 2021-12-09 Travel 1.2.840.1 1.2.117.288 [id number] Methodi 00:00:00 00:00:[address] 3.430.2.7 0.2.7.3.698 Ho spita .3.066095 084.8 l .8 2021-12-09 2021-12-09 Wyatt [place] 1.2.840.1 [id number] Method 00:00:00 00:00:00 Everett Wilson [address]19.1.[address] 3.430.2.7 Hospit a .3.493920 l .8 2021-11-30 2021-11-30 Outpatient Daniel_T VFP VFP [id number] 2-20 [facility] 05:06:00 05:06:00 [id number] Family Practic e 2021-11-24 2021-11-24 Outpatient Daniel_T VFP VFP [id number] 20 [facility] 11:42:00 11:42:00 [id number] Family Practic e 2021-11-15 2021-11-15 Karlos Jimenez_T VFP [place] - [id number] 0 Village 00:00:00 00:00:00 [facility] [id number] Jake Jimenez - Tammy evans MD: [id number] VM_HOU_Shajameson e [facility], [address], [place] [address] , Ph. 2021-10-31 2021-10-31 Outpatient Daniel_T VFP VFP [id number] 20 [facility] 03:03:00 03:03:00 [id number] Family Practic e 2021-09-01 2021-09-01 Outpatient Hawa POE [facility] [id number] Univers 15:00:00 15:00:00 YENNIFER [place] [facility] 2021-09-01 2021-09-01 Nurse Therapy, Adc Covid Infusion [facility] 1.2.840.114 [id number] Univers 09:56:52 10:56:52 Visit Yennifer Poe 350.1.13.10 kiana [facility] [place] [phone] [place] [address] [place] 2021-09-01 2021-09-01 Orders Doctor TEJEDA 1.2.840.114 [id number] Univers 00:00:00 00:00:00 Only Unassigned, VINCE 350.1.13.10 ity of [place] [facility] 4.2.7.2.686 Josemanuel as [phone] [facility] [address] [place] 2021-08-31 2021-08-31 Telephone BrandoILEANA 1.2.620.567 [id number] Univers 00:00:00 00:00:00 Aneatrice VINCE 350.1.13.10 ity of HOSPITAL 4.2.7.2.686 Josemanuel as [id number] [facility] [address] [place] 2021-08-31 2021-08-31 Telephone PcpILEANA 1.2.642.362 [id number] Univers 00:00:00 00:00:00 Patient VINCE 350.1.13.10 it y of Does Not HOSPITAL 4[place].2.686 [place] A [phone] [address] 2021 2021 [facility] [id number] Univers 13:30:00 13:30:00 ROS ity [facility] 2021 2021 Laboratory Only, Ang Db Test [facility] 1.2.8 40.114 [id number] Univers 13:13:42 13:28:42 Only Darrion [facility] 350.1.13.10 ity of [place] 4.2.7.2.686 Josemanuel as [place]lea [phone] [address] Medical [facility] 2021-08-16 2021-08-16 Karlos Jimenez_T VFP [place] - [id number] 0 Village 00:00:00 00:00:00 [facility] [id number] Jake Hill - Tammy evans MD: [id number] VM_HOU_Shajameson e Shadow [place] [facility], [address], [place] [address] , Ph. 2021-08-10 2021-08-10 Outpatient Tony_Sigrid VFP VFP [id number] 2-20 Village 08:37:00 08:37:00 [id number] Family Camilo garibay 2021-07-12 2021-07-12 Outpatient VFP VFP [id number] -20 [facility] 10:35:00 10:35:00 [id number] Family Practic e 2021-05-31 2021-05-31 Office [place] 1.2.840.1 [id number] Methodi 11:00:29 13:36:05 Visit Everett Wilson [address]609.1.[address] 3.430.2.7 Hospit a .3.166059 l .8 2021-05-31 2021-05-31 Travel 1.2.840.1 1.2.872.517 [id number] Methodi 00:00:00 00:00:[address] 3.430.2.7 0.2.7.3.698 Ho spita .3.649537 084.8 l .8 2021-05-19 2021-05-19 Outpatient Daniel_T VFP VFP [id number] 220 [facility] 08:13:00 08:13:00 [id number] Family Practic e 2021-05-16 2021-05-16 Karlos Daniel_T VFP [place] - [id number] 0 Village 00:00:00 00:00:00 [facility] [id number] Family JimenezJake - Pracdenver evans MD: [id number] VM_ASIF_Fish e [facility], [address], [place] [address] , Ph. 2021-05-08 2021-05-08 Refill [place] 1.2.840.1 [id number] Methodi 00:00:00 00:00:00 Everett Wilson [address].1.[address] 3.430.2.7 Hospit a .3.883530 l .8 2021-03-02 2021-03-02 Outpatient Daniel_T VFP VFP [id number] 220 [facility] 01:27:00 01:27:00 [id number] Family Practic e 2021-02-12 2021-02-12 Outpatient Daniel_T VFP VFP [id number] 220 [facility] 09:03:00 09:03:00 [id number] Family Practic e 2021-02-102021-02-10 Karlos Jimenez_T VFP [place] - [id number] 0 [facility] 00:00:00 00:00:00 [facility] [id number] Family JimenezJake MD: [id number] ONDINAGiannijameson e [facility], [facility] [address], [place] [address] , Ph. 2021-02-09 2021-02-09 Outpatient Daniel_T VFP VFP [id number] 2-20 [facility] 03:27:00 03:27:00 [id number] Family Practic e 2020-11-15 2020-11-15 Outpatient Daniel_T VFP VFP [id number] 220 [facility] 12:30:00 12:30:00 [id number] Family Practic e 2020-11-08 2020-11-08 Outpatient Daniel_T VFP VFP [id number] 220 [facility] 01:02:00 01:02:00 [id number] Family Practic e 2020-10-18 2020-10-18 Outpatient Daniel_T VFP VFP [id number] 220 [facility] 08:22:00 08:22:00 [id number] Family Practic e 2020-10-13 2020-10-13 Karlos Rezael_T VFP [place] - [id number] 0 [facility] 00:00:00 00:00:00 [facility] [id number] Family JimenezJake MD: [id number] Kiara garibay Shadow [facility], [facility] [address], [place] [address] , Ph. 2020-10-12 2020-10-12 Outpatient Daniel_T VFP VFP [id number] 220 [facility] 06:26:00 06:26:00 [id number] Family Practic e 2020-09-21 2020-09-21 Outpatient Daniel_T VFP VFP [id number] 220 [facility] 12:51:00 12:51:00 [id number] Family Practic e 2020-06-01 2020-06-01 Outpatient [facility] [id number] [address] [place] [address] 00:00:00 00:00:00 EVERETT [address] 2020-06-01 2020-06-01 Outpatient [facility]LY [facility] [id number] [address] [place] [address] 00:00:00 00:00:00 EVERETT 458 Method i 2020-04-30 2020-04-30 Outpatient RAMON, [facility] [id number] Coden 00:00:00 00:00:00 WILLARD 540 Method i 2020-04-23 2020-04-23 Outpatient ALE, [facility] 097 [id number] Coden 00:00:00 00:00:00 ALEX Strange Method i 2020-02-25 2020-02-25 [facility] [id number] [facility] 13:00:00 13:00:00 MARLINE bruno [facility] 2020-02-25 2020-02-25 [facility] 1.2.840.114 [id number] 07:55:46 08:10:46 ne Visit Chris Foreman [facility] 350.1.13.10 Surgical 4.2.7.2.686 Specialti [id number] es [address] [place] [address] 2020-02-25 2020-02-[address] [facility] 1.2.840. 114 [id number] [facility] 07:55:46 08:10:46 ne Visit Marline [facility] 350.1.13.10 ity of Surgical 4.2.7.2.686 Josemanuel as Specialti [phone] Me dical es 198 [facility] 2020-02-11 2020-02-11 Office [facility] 1.2.879.417 [id number] 13:28:34 14:07:50 Visit Marline [facility] 350.1.13.10 Surgical 4.2.7.2.686 Specialti [id number] es [address] [place] [address] 2020-02-11 2020-02-11 Office [facility] 1.2.478.439 [id number] Univers 13:28:34 14:07:50 Visit Marline [facility] 350.1.13.10 it y of Surgical 4.2.7.2.686 Josemanuel as Specialti [phone] Me dical es 198 [facility] 2020-02-11 2020-02-11 Outpatient R [facility] [id number] Univers 13:45:00 13:45:00 MARLINE bruno [facility] 2020-01-28 2020-01-28 [facility] Loc Vick 1.2.840.114 [id number] Univers 08:36:44 23:59:00 Encounter Marline Arenas [facility] 350.1.13.10 ity of [place].2.[place] [id number] [facility] [address] [place] 2020-01-28 2020-01-28 Outpatient [facility] N[facility] [id number] Univers 00:00:00 00:00:00 MARLINE ity [facility] 2020-01-28 2020-01-28 Orders Doctor TEJEDA 1.2.840.114 [id number] Univers 00:00:00 00:00:00 Only Unassigned, VINCE 350.1.13.10 ity of [place] [facility] 4.2.7.2.686 Josemanuel as [id number] [facility] [address] [place] 2020-01-22 2020-01-22 Outpatient R [facility] [id number] Univers 11:24:03 23:59:00 MARLINE ity [facility] 2020-01-22 2020-01-22 [facility] 1.2.840.114 [id number] Univers 11:24:00 23:59:00 Encounter Marline Crawford 350.1.13.10 ity of [place].2.[place] [id number] [facility] [address] [place] 2020-01-22 2020-01-22 Program Engagement Director Jennifer, Adc Lab Main [facility] 1.2.8 40.114 [id number] Univers 11:17:58 11:32:58 Visit Marline Vick Dagoberto [place] 350.1.13.10 it[place]2.[place] [facility] [phone] Me dical nal 353 [facility] 2020-01-19 2020-01-19 Telephone [facility] 1.2.840.114 [id number] Univers 00:00:00 00:00:00 Marline Arenas [facility] 350.1.13.10 it y of Surgical 4.2.7.2.686 Josemanuel as Specialti [id number] Me dical es 198 [facility] 2020-01-19 2020-01-19 Orders Doctor ILEANA 1.2.840.114 [id number] Univers 00:00:00 00:00:00 Only Unassigned, VINCE 350.1.13.10 ity of [place] [facility] 4.2.7.2.686 Josemanuel as [id number] [address] 2020-01-16 2020-01-16 Office Nava [facility] 1.2.220.234 [id number] Univers 09:16:51 10:11:48 Visit Marline Arenas [employer] 350.1.13.10 it y of Surgical 4.2.7.2.686 Josemanuel as Specialti [id number] De dical es 198 [facility] 2020-01-02 2020-01-02 Outpatient [facility] [id number] Coden 00:00:00 00:00:00 ALEX [address] 2020-01-01 2020-01-01 Telephone [facility] 1.2.840.114 [id number] Univers 00:00:00 00:00:00 Marline Arenas [employer] 350.1.13.10 it y of Surgical 4.2.7.2.686 Josemanuel as Specialti [id number] De dical es 198 [facility] 2020-01-01 2020-01-01 Orders Doctor ILEANA 1.2.840.114 [id number] Univers 00:00:00 00:00:00 Only Unassigned, VINCE 350.1.13.10 ity of [place] [facility] 4.2.7.2.686 Josemanuel as [id number] [address] 2019-12-31 2019-12-[address] [facility] [id number] [address] [place] [address] 00:00:00 00:00:00 WILLARD [address] 2019-12-26 2019-12-26 Telephone [facility] 1.2.840.114 [id number] Univers 00:00:00 00:00:00 Marline Arenas [employer] 350.1.13.10 it y of Surgical 4.2.7.2.686 Josemanuel as Specialti [id number] Me dical es 198 [facility] 2019-12-25 2019-12-25 Office Amparo [facility] 1.2.840.114 [id number] Univers 13:45:35 14:00:35 Visit [facility] 350.1.13.10 it y of Surgical 4.2.7.2.686 Josemanuel as Specialti [id number] De dical es 198 [facility] 2019-12-25 2019-12-25 Orders Doctor ILENAA 1.2.840.114 [id number] Univers 00:00:00 00:00:00 Only Unassigned, VINCE 350.1.13.10 ity of [place] [facility] 4.2.7.2.686 Josemanuel as [id number] [facility] [address] [place] 2019-12-22 2019-12-[address] [facility] [id number] [address] [place] [address] 00:00:00 00:00:00 WILLARD [address] Results Test Description Test Time Test Comments Results Result Comments Source Hemoglobin A1c measurement device panel 2023-08-28 11:05:42 Test Item Value Reference Range Interpretation Comme nts Hemoglobin A1c/Hemoglobin.total in Blood (test code = 4548-4) 6.1 % 4.0-6.4 [facility]] in Capillary [id number] 11:00:58 Test Item Value Reference Range Interpretation Comments Blood Glucose: mg/dl (test code = Blood 152 Glucose: mg/dl) [facility] 12 [id number] 11:02:31 Test Item Value Reference Range Interpretation Comments Ventricular rate (test 49 code = 253) Atrial rate (test code 49 = 255) LA interval (test code 178 = 266) QRSD interval (test 98 code = 260) QT interval (test code 458 = 264) QTC interval (test code 413 = 265) P axis 1 (test code = 66 267) QRS axis 1 (test code = 68 268) T wave axis (test code 20 = 270) EKG impression (test Sinus code = 273) bradycardia-Nonspecifi c ST and T wave abnormality-Abnormal ECG-In automated comparison with ECG of 28-MAR-2022 21:25,-QRS duration has increased-Nonspecific T wave abnormality, improved in Lateral leads-Electronically Signed By Estela VILLAVICENCIO, [facility] ([id number]) on 06/07/2023 6:02:30 AM [facility] [id number] 11:02:31 Test Item Value Reference Range Interpretation Comments Ventricular rate (test 49 code = 253) Atrial rate (test code 49 = 255) LA interval (test code 178 = 266) QRSD interval (test 98 code = 260) QT interval (test code 458 = 264) QTC interval (test code 413 = 265) P axis 1 (test code = 66 267) QRS axis 1 (test code = 68 268) T wave axis (test code 20 = 270) EKG impression (test Sinus code = 273) bradycardia-Nonspecifi c ST and T wave abnormality-Abnormal ECG-In automated comparison with ECG of 28-MAR-2022 21:25,-QRS duration has increased-Nonspecific T wave abnormality, improved in Lateral leads- [address]2023-07-13 11:02:31 Test Item Value Reference Range Interpretation Comments Ventricular rate (test 49 code = 253) Atrial rate (test code 49 = 255) LA interval (test code 178 = 266) QRSD interval (test 98 code = 260) QT interval (test code 458 = 264) QTC interval (test code 413 = 265) P axis 1 (test code = 66 267) QRS axis 1 (test code = 68 268) T wave axis (test code 20 = 270) EKG impression (test Sinus code = 273) bradycardia-Nonspecifi c ST and T wave abnormality-Abnormal ECG-In automated comparison with ECG of 28-MAR-2022 21:25,-QRS duration has increased-Nonspecific T wave abnormality, improved in Lateral leads- [address]2023-07-13 11:02:31 Test Item Value Reference Range Interpretation Comments Ventricular rate (test 49 code = 253) Atrial rate (test code 49 = 255) LA interval (test code 178 = 266) QRSD interval (test 98 code = 260) QT interval (test code 458 = 264) QTC interval (test code 413 = 265) P axis 1 (test code = 66 267) QRS axis 1 (test code = 68 268) T wave axis (test code 20 = 270) EKG impression (test Sinus code = 273) bradycardia-Nonspecifi c ST and T wave abnormality-Abnormal ECG-In automated comparison with ECG of 28-MAR-2022 21:25,-QRS duration has increased-Nonspecific T wave abnormality, improved in Lateral leads- [facility] Lumbar Spine Wo [id number] 17:18:08EXAMINATION: CT LUMBAR SPINE WO CONTRAST CLINICAL HISTORY: Z98.1 Arthrodesis status, eval for pseudoarthrosis s p lumbar fusion COMPARISON: MRI L-spine 05/09/2022. TECHNIQUE: Axial noncontrast enhanced images of lumbar spine was performed with coronal sagittal reconstruction algorithms. CT imaging was performed with iterative reconstruction technique and/or automated exposure control to reduce radiation dose. FINDINGS: There are 5 non-rib bearing lumbar type vertebrae, the lowest labeled L5 in this report as identified by the lumbosacral angle and iliolumbar ligaments. There are healed postsurgical changes compatible with decompressive laminectomies and posterior spinal instrumentation L3-S1. Thereare prominent perivascular lucencies with perilesional sclerosis throughout the S1 vertebra, compatible with significant hardware loosening, for example images 34 and 66 of series 301 and image 44 series 300. No displaced fractures identified. Vertebral body heights are preserved. Evaluation of the visualized soft tissues demonstrates no mass, adenopathy or aneurysm. No hydronephrosis. Scattered vascu lar calcifications are noted along the abdominal aorta and common iliac arteries bilaterally. Axial images through the disc spaces demonstrate the following: L1-L2: Mild posterior disc bulge which indents ventral thecal sac, however no resultant spinal canal, subarticular zone, or neural foraminal stenosis. L2-L3: No significant posterior disc disease, spinal canal, subarticular zone, or neural foraminal stenosis. L3-L4: Mild intervertebral disc height loss with partially calcified circumferential disc bulge which indents ventral thecal sac and results in moderate lateral recess stenosis when combined with moderate facet arthrosis. There is also mild to moderate stenosis of the spinal canal superiorly above the laminectomy defects, image 80 of series 4. The lower spinal canal is decompressed and patent. Mild bilateral neural foraminal narrowing is also noted. L4-L5: Spinal canal is decompressed and patent, however there is similar moderate to marked bilateral neural foraminal stenosis secondaryto bulging disc material and grade 1 anterolisthesis. There is probable compromise of the exiting Z1zjsas roots bilaterally, image 58 of series 4. L5-S1: Spinal canal is decompressed and patent. Thereis moderate to marked lateral neural foraminal stenosis secondary to grade 1 anterolisthesis and facet arthrosis. Evaluation of other visualized levels demonstrates no significant posterior disc disease, spinal canal, subarticular zone, or neural foraminal stenosis. IMPRESSION: Healed postsurgical changes related to decompressive laminectomies and posterior spinal instrumentation L3-S1, with prominent hardware loosening at the S1 level as detailed above. [id number] HospitalCT Lumbar Spine Wo [id number] 17:18:08EXAMINATION: CT LUMBAR SPINE WO CONTRAST CLINICAL HISTORY: Z98.1 Arthrodesis status, eval for pseudoarthrosis s p lumbar fusion COMPARISON: MRI L-spine 05/09/2022. TECHNIQUE: Axial noncontrast enhanced images of lumbar spine was performed with coronal sagittal reconstruction algorithms. CT imaging was performed with iterative reconstruction technique and/or automated exposure control to reduce radiation dose. FINDINGS: There are 5 non-rib bearing lumbar type vertebrae, the lowest labeled L5 in this report as identified by the lumbosacral angle and iliolumbar ligaments. There are healed postsurgical changes compatible with decompressive laminectomies and posterior spinal instrumentation L3-S1. Thereare prominent perivascular lucencies with perilesional sclerosis throughout the S1 vertebra, compatible with significant hardware loosening, for example images 34 and 66 of series 301 and image 44 series 300. No displaced fractures identified. Vertebral body heights are preserved. Evaluation of the visualized soft tissues demonstrates no mass, adenopathy or aneurysm. No hydronephrosis. Scattered vascular calcifications are noted along the abdominal aorta and common iliac arteries bilaterally. Axial i mages through the disc spaces demonstrate the following: L1-L2: Mild posterior disc bulge which indents ventral thecal sac, however no resultant spinal canal, subarticular zone, or neural foraminal stenosis. L2-L3: No significant posterior disc disease, spinal canal, subarticular zone, or neural foraminal stenosis. L3-L4: Mild intervertebral disc height loss with partially calcified circumferential disc bulge which indents ventral thecal sac and results in moderate lateral recess stenosis when combined with moderate facet arthrosis. There is also mild to moderate stenosis of the spinal canal superiorly above the laminectomy defects, image 80 of series 4. The lower spinal canal is decompressed and patent. Mild bilateral neural foraminal narrowing is also noted. L4-L5: Spinal canal is decompressed and patent, however there is similar moderate to marked bilateral neural foraminal stenosis secondaryto bulging disc material and grade 1 anterolisthesis. There is probable compromise of the exiting E0jlfic roots bilaterally, image 58 of series 4. L5-S1: Spinal canal is decompressed and patent. Thereis moderate to marked lateral neural foraminal stenosis secondary to grade 1 anterolisthesis and facet arthrosis. Evaluation of other visualized levels demonstrates no significant posterior disc disease, spinal canal, subarticular zone, or neural foraminal stenosis. IMPRESSION: Healed postsurgical changes related to decompressive laminectomies and posterior spinal instrumentation L3-S1, with prominent hardware loosening at the S1 level as detailed above. [facility]-[id number] HospitalHemoglobin A1c measurement device [id number] 10:35:13 Test Item Value Reference Range Interpretation Comments Hemoglobin A1c/Hemoglobin.total in 5.7 % 5.7-6.4 Blood (test code = 4548-4) [facility] [Mass/volume] in Capillary [id number] 10:31:03 Test Item Value Reference Range Interpretation Comments Blood Glucose: mg/dl (test code = Blood 148 Glucose: mg/dl) [facility]em[facility] A[facility]c measurement device [id number] 10:31:21 Test Item Value Reference Range Interpretation Comments Hemoglobin A1c/Hemoglobin.total in 6.2 % 5.7-6.4 Blood (test code = 4548-4) [facility] [Mass/volume] in Capillary [id number] 10:28:50 Test Item Value Reference Range Interpretation Comments Blood Glucose: mg/dl (test code = Blood 152 Glucose: mg/dl) [facility] ([facility]OVID-19[facility] RNA [Presence] in Respiratory specimen by ROMAN with probe [id number] 19:11:37 Test Item Value Reference Range Interpretation Comments SARS-CoV-2 (COVID-19) RNA Not detected [Presence] in Respiratory specimen by ROMAN with probe detection (test code = 85460-3) Whether patient is employed in a Unknown healthcare setting (test code = 86391-0) Whether the patient has symptoms Unknown related to condition of interest (test code = 47538-2) Whether the patient was Unknown hospitalized for condition of interest (test code = 05865-1) Whether the patient was admitted Unknown to intensive care unit (ICU) for condition of interest (test code = 25101-1) Whether patient resides in a Unknown congregate care setting (test code = 87679-8) status (test code = Unknown 88756-4) Date and time of symptom onset Unknown (test code = 53569-7) [facility] 2022-03-23 10:45:50 Test Item Value Reference Range Interpretation Comments Hemoglobin A1C Fingerstick: (test code 5.6 = Hemoglobin A1C Fingerstick:) [facility] Cap[facility] [id number] 10:44:24 Test Item Value Reference Range Interpretation Comments Blood Glucose: mg/dl (test code = Blood 125 Glucose: mg/dl) [facility] [id number] 10:10:01 Test Item Value Reference Range Interpretation Comments Hemoglobin A1C Fingerstick: (test code 5.5 = Hemoglobin A1C Fingerstick:) [facility] [id number] 10:10:01 Test Item Value Reference Range Interpretation Comments Hemoglobin A1C Fingerstick: (test code 5.5 = Hemoglobin A1C Fingerstick:) [facility] in Capillary [id number] 10:06:36 Test Item Value Reference Range Interpretation Comments Blood Glucose: mg/dl (test code = Blood 107 Glucose: mg/dl) [facility]] in Capillary [id number] 10:06:36 Test Item Value Reference Range Interpretation Comments Blood Glucose: mg/dl (test code = Blood 107 Glucose: mg/dl) [facility] 12 [id number] 21:38:34 Test Item Value Reference Range Interpretation Comments Ventricular rate (test code = 253) Atrial rate (test code = 255) LA interval (test code = 266) QRSD interval (test code = 260) QT interval (test code = 264) QTC interval (test code = 265) P axis 1 (test code = 267) QRS axis 1 (test code = 268) T wave axis (test code = 270) EKG impression (test Sinus bradycardia-ST & code = 273) T wave abnormality, consider lateral ischemia-Abnormal ECG-In automated comparison with ECG of 02-DEC-2019 11:15,-No significant change was found- [facility] in Capillary [id number] 10:25:01 Test Item Value Reference Range Interpretation Comments Blood Glucose: mg/dl (test code = Blood 65 Glucose: mg/dl) [facility] CHEST 1 [id number] 18:20:00HISTORY: Preop. TECHNIQUE: PA and lateral views of the chest are obtained. No prior cheststudy available for comparison. FINDINGS: No acute pneumonia detected. No pneumothorax or pleural effusionor pulmonary congestion. Cardiothoracic ratio of approximately 16/33.7 cmis consistent with normal cardiac size. CONCLUSIONS: No signs of acute cardiopulmonary disease. [facility], Radiant Results Inft User - 2019 12:21 PM CSTHISTORY: Preop.TECHNIQUE: PA and lateral views of the chest are obtained. No prior cheststudy available for comparison.FINDINGS: No acute pneumonia detected. No pneumothorax or pleuraleffusionor pulmonary congestion. Cardiothoracic ratio of approximately 16/33.7 cmis consistent with normal cardiac size.CONCLUSIONS: No signs of acute cardiopulmonary disease.[facility]
[2023-10-24 19:21] LABS: Absolute Lymphocytes (CBC) 2.2 K/uL (0.7-4.9); Lymphocytes % 12.3 % (15.3-44.8); MCV 92.5 fL (80-100); MPV 7.6 fL (7.6-11.3); Platelets 276 thou/uL (152-406); RBC Red Blood Cell Count 4.98 M/uL (4.33-5.43)
[2023-10-24 19:23] LABS: Protime INR 1.31
[2023-10-24 19:50] LABS: Specific Gravity > 1.030 (1.005-1.030); Urine Bilirubin NEGATIVE (Negative); Urine Blood Negative (Negative); Urine Clarity Clear (Clear); Urine Color Light-Yellow (Yellow); Urine Glucose 4+ (Over) (Negative); Urine Protein NEGATIVE (Negative); Urine Urobilinogen Normal (Normal)
[2023-10-24 19:52] LABS: Albumin 3.8 g/dL (3.4-5.0); Bilirubin Direct 0.2 mg/dL (0-0.2); Bilirubin Indirect, Calculated 0.6 mg/dL (0.2-0.8); Bilirubin Total 0.8 mg/dL (0.2-1.0); Magnesium 2.6 mg/dL (1.6-2.4); Potassium 4.1 mEq/L (3.5-5.1); Protein, Total 7.8 g/dL (6.4-8.2); Troponin High Sensitivity 6.3 pg/mL (<58.9)
--- NOTE | 2023-10-24 20:24 | RAD REPORT ---
EXAM DESCRIPTION: Opalt Single View10/24/2023 7:43 pm CLINICAL HISTORY: ABDOMINAL DISTENTION COMPARISON: Abdomen 1 View (KUB) dated 03/16/2022; Abdomen 1 View (KUB) dated 01/07/2021; Abdomen 1 Vi ew (KUB) dated 01/26/2020; Abdomen 1 View (KUB) dated 01/16/2020 TECHNIQUE: Portable AP view of the chest. FINDINGS: The lungs are clear. No pneumothorax or effusion. The cardiomediastinal contours are unre markable. IMPRESSION: No acute cardiopulmonary process.
[2023-10-24] MEDS ORDERED: NA CHLORIDE 0.9% 1,000 ML ONE (21:04)
[2023-10-24] MEDS ORDERED: ONDANSETRON 4 MG/2 ML VIAL ONE (21:04)
[2023-10-24] MEDS ORDERED: MORPHINE 2 MG/ML SYR ONE ×2 (21:04→22:01)
[2023-10-24] MEDS ORDERED: FAMOTIDINE 20 MG/2 ML VIAL IV ONE (21:04)
--- NOTE | 2023-10-24 21:53 | RAD REPORT ---
EXAM DESCRIPTION: US - Abdomen Exam Limited - 10/24/2023 9:35 pm CLINICAL HISTORY: ABD PAIN COMPARISON: Renal Ultrasound-Complete dated 03/16/2022; Abdomen Pelvis W Contrast dated 10/24/2023 TECHNIQUE: Sonographic grayscale and color flow images of the right upper abdominal quadrant were o btained. FINDINGS: The gallbladder demonstrates no gallstones. No pericholecystic fluid or gallbladder wall t hickening. The common bile duct is normal measuring 7 mm. The liver demonstrates no findings of intrahepatic biliary dilatation. IMPRESSION: Unremarkable right upper quadrant ultrasound.
--- NOTE | 2023-10-24 21:57 | EDPHYS ---
Physician Documentation [facility] Name: Daniel Solis Age: 78 yrs Sex: Male : 1945 Arrival Date: 10/24/2023 Time: 18:17 Bed 15 Private MD: ED Physician Gerard Mckenzie HPI: 10/24 19:04 This 78 yrs old Male presents to ER via Ambulatory with complaints of carson Abdominal Pain. 19:04 The patient presents with abdominal pain abdominal distention in the epigastric area, carson in the upper abdomen. Onset: The symptoms/episode began/occurred 2 day(s) ago. The symptoms do not radiate. Associated signs and symptoms: none. The symptoms are described as constant, crampy. Modifying factors: The symptoms are alleviated by nothing, the symptoms are aggravated by nothing. Severity of pain: At its worst the pain was moderate in the emergency department the pain is unchanged. The patient has not experienced similar symptoms in the past. Historical: - Allergies: 18:39 No Known Allergies; aa5 - PMHx: 18:39 Diabetes mellitus; aa5 10/25 14:55 Hypertensive disorder; Atrial fibrillation; Hypercholesterolemia; nj1 - PSHx: 10/24 18:39 Hemorrhoidectomy; Back Sx; aa5 - Immunization history:: Adult Immunizations unknown. - Social history:: Smoking status: Patient denies any tobacco usage or history of. - Family history:: not pertinent. ROS: 19:04 Constitutional: Negative for fever, chills, and weight loss, Eyes: Negative for injury, carson pain, redness, and discharge, ENT: Negative for injury, pain, and discharge, Neck: Negative for injury, pain, and swelling, Cardiovascular: Negative for chest pain, palpitations, and edema, Respiratory: Negative for shortness of breath, cough, wheezing, and pleuritic chest pain, Back: Negative for injury and pain, : Negative for injury, bleeding, discharge, and swelling, MS/Extremity: Negative for injury and deformity, Skin: Negative for injury, rash, and discoloration, Neuro: Negative for headache, weakness, numbness, tingling, and seizure, 19:04 Abdomen/GI: Positive for abdominal pain, of the epigastric area, right upper quadrant and left upper quadrant, Exam: 19:04 Constitutional: This is a well developed, well nourished patient who is awake, alert, carson and in no acute distress. Head/Face: Normocephalic, atraumatic. Eyes: Pupils equal round and reactive to light, extra-ocular motions intact. Lids and lashes normal. Conjunctiva and sclera are non-icteric and not injected. Cornea within normal limits. Periorbital areas with no swelling, redness, or edema. ENT: Nares patent. No nasal discharge, no septal abnormalities noted. Tympanic membranes are normal and external auditory canals are clear. Oropharynx with no redness, swelling, or masses, exudates, or evidence of obstruction, uvula midline. Mucous membranes moist. Neck: Trachea midline, no thyromegaly or masses palpated, and no cervical lymphadenopathy. Supple, full range of motion without nuchal rigidity, or vertebral point tenderness. No Meningismus. Chest/axilla: Normal chest wall appearance and motion. Nontender with no deformity. No lesions are appreciated. Cardiovascular: Regular rate and rhythm with a normal S1 and S2. No gallops, murmurs, or rubs. Normal PMI, no JVD. No pulse deficits. Respiratory: Lungs have equal breath sounds bilaterally, clear to auscultation and percussion. No rales, rhonchi or wheezes noted. No increased work of breathing, no retractions or nasal flaring. Back: No spinal tenderness. No costovertebral tenderness. Full range of motion. Male : Normal genitalia with no discharge or lesions. Skin: Warm, dry with normal turgor. Normal color with no rashes, no lesions, and no evidence of cellulitis. MS/ Extremity: Pulses equal, no cyanosis. Neurovascular intact. Full, normal range of motion. Neuro: Awake and alert, GCS 15, oriented to person, place, time, and situation. Cranial nerves II-XII grossly intact. Motor strength 5/5 in all extremities. Sensory grossly intact. Cerebellar exam normal. Normal gait. Psych: Awake, alert, with orientation to person, place and time. Behavior, mood, and affect are within normal limits. 19:04 Abdomen/GI: Inspection: distension, that is moderate, Bowel sounds: normal, Palpation: nontender, Liver: no appreciated palpable abnormalities, Hernia: not appreciated, 21:56 ECG was reviewed by the Attending Physician. [facility] Vital Signs: 18:40 BP 147 / 73; Pulse 58; Resp 18 S; Temp 97.8(TE); Pulse Ox 100% on R/A; Weight 86.18 kg aa5 (R); Height 5 ft. 9 in. (R); 23:00 BP 135 / 59; Pulse 60; Resp 16; Pulse Ox 96% ; bp 10/25 01:00 BP 126 / 57; Pulse 53; Resp 16; Pulse Ox 94% ; bp 03:00 BP 130 / 56; Pulse 52; Resp 16; Pulse Ox 96% ; bp 10/24 18:40 Body Mass Index 28.06 (86.18 kg, 175.26 cm) aa5 MDM: 10/24 18:24 Patient medically screened. [facility] 19:07 Differential diagnosis: non-specific abd pain, pancreatitis. Data reviewed: vital carson signs, nurses notes, lab test result(s), EKG, radiologic studies, CT scan, plain films, ultrasound. Consideration of Admission/Observation Escalation of care including admission/observation considered. I considered the following discharge prescriptions or medication management in the emergency department Medications were administered in the Emergency Department. See MAR. Test considered but Not performed: MRI: NO MRCP. Historians other than the Patient: PT WELL INFORMED. Care significantly affected by the following chronic conditions: Diabetes, Hypertension. 10/24 18:25 Order name: Basic Metabolic Panel; Complete Time: 21:19 [facility] 10/24 18:25 Order name: CBC with Diff; Complete Time: 21:19 [facility] 10/24 18:25 Order name: LFT's; Complete Time: 21:19 [facility] 10/24 18:25 Order name: Magnesium; Complete Time: 21:19 [facility] 10/24 18:25 Order name: NT PRO-BNP; Complete Time: 21:19 [facility] 10/24 18:25 Order name: PT-INR; Complete Time: 21:19 [facility] 10/24 18:25 Order name: Troponin HS; Complete Time: 21:19 [facility] 10/24 18:25 Order name: Lipase; Complete Time: 21:19 [facility] 10/24 18:25 Order name: Urinalysis w/ reflexes; Complete Time: 21:19 [facility] 10/24 22:48 Order name: Urinalysis w/ reflexes [facility] 10/24 22:48 Order name: Basic Metabolic Panel [facility] 10/24 22:48 Order name: Basic Metabolic Panel; Complete Time: 10:26 [facility] 10/24 22:48 Order name: CBC with Automated Diff [facility] 10/24 22:48 Order name: CBC with Automated Diff; Complete Time: : [facility] 10/25 06:34 Order name: Hemoglobin A1c; Complete Time: : [facility] 10/25 13:36 Order name: Lipase [facility] 10/24 18:25 Order name: XRAY Chest (1 view); Complete Time: 21:19 [facility] 10/24 21:19 Order name: CT Abd/Pelvis - IV Contrast Only; Complete Time: : [facility] 10/24 21:19 Order name: US Abdomen Limited; Complete Time: 21:56 [facility] 10/24 18:25 Order name: EKG; Complete Time: 18: [facility] 10/24 18:25 Order name: Cardiac monitoring; Complete Time: 22:43 [facility] 10/24 18:25 Order name: EKG - Nurse/Tech; Complete Time: 20:56 [facility] 10/24 18:25 Order name: IV Saline Lock; Complete Time: 20:56 [facility] 10/24 18:25 Order name: Labs collected and sent; Complete Time: 20:56 [facility] 10/24 18:25 Order name: O2 Per Protocol; Complete Time: 20: [facility] 10/24 18:25 Order name: O2 Sat Monitoring; Complete Time: 20:56 [facility] EC:56 Rate is 50 beats/min. Rhythm is regular. QRS [place] is Normal. IN interval is normal. QRS carson interval is normal. QT interval is normal. No Q waves. T waves are Normal. No ST changes noted. Clinical impression: Sinus bradycardia. Interpreted by me. Reviewed by me. Administered Medications: 20:55 Drug: Famotidine IVP 20 mg IVP once; dilute with 10 mL 0.9% NaCl; give over 2 minutes lg3 Route: IVP; Site: right antecubital; 20:55 Drug: NS 0.9% IV 1000 ml IV at 1 bolus Per protocol; 1000 mL bolus Route: IV; Rate: 1 lg3 bolus; Site: right antecubital; 10/25 06:19 Follow up: IV Status: Completed infusion; IV Intake: 1000ml bp 10/24 20:55 Drug: morphine IVP or IV 2 mg IVP once over 4 mins Route: IVP; Infused Over: 4 mins; lg3 Site: right antecubital; 10/25 06:19 Follow up: Response: No adverse reaction bp 10/24 20:55 Drug: Ondansetron IVP 4 mg IVP once; over 2 minutes Route: IVP; Site: right antecubital;lg3 10/25 06:18 Follow up: Response: No adverse reaction bp 10/24 22:11 Drug: Meropenem IV 1 grams IV at per protocol once; (mix in NS 100 mL) Route: IV; Rate: lg3 per protocol; Site: right antecubital; 10/25 06:18 Follow up: IV Status: Completed infusion; IV Intake: 100ml bp 06:20 Not Given (Patient Refused): morphineor iv 2 mg IVP once over 4 mins bp Disposition Summary: 10/24/23 21:56 Hospitalization Ordered Notes: Hospitalization Status: Inpatient Admission carson Provider: Solitario Patel cha Condition: Fair carson Problem: new carson Symptoms: have improved carson Bed/Room Type: Standard carson Location: Telemetry/MedSurg (Inpatient)(10/25/23 14:27) em1 Room Assignment: [facility] [place](10/25/23 14:27) em1 Diagnosis - Epigastric abdominal tenderness carson - Biliary acute pancreatitis carson - Elevated white blood cell count carson Forms: - Medication Reconciliation Form carson - SBAR form carson - Leadership Thank You Letter carson Signatures: Dispatcher [employer] EDGerard Huang MD MD cha Martinez, Eric em1 Sharon Chao, RN RN vee5 Ernst Velez, RN RN Aminta Mahmood RN RN lg3 Mago Rees RN RN nj1 Corrections: (The following items were deleted from the chart) 10/24 23:45 21:56 Telemetry/MedSurg (Inpatient) carson bp 23:45 21:56 carson bp 10/25 14:27 10/24 23:45 BR ER HOLD bp em1 10/25 14:27 10/24 23:45 ERHOLD- bp em1 10/25 14:56 10/24 18:39 PMHx: Hypertensive disorder; aa5 nj1 10/25 14:56 14:55 PMHx: Diabetes mellitus; nj1 nj1
--- NOTE | 2023-10-24 21:57 | ER ---
Nurse's Notes [facility] Name: Daniel Solis Age: 78 yrs Sex: Male : 1945 Arrival Date: 10/24/2023 Time: 18:17 Bed 15 Private MD: Diagnosis: Epigastric abdominal tenderness;Biliary acute pancreatitis;Elevated white blood cell count Presentation: 10/24 18:40 Chief complaint: Patient states: upper abd pain x 2 days ago. Sent by Dr. Cali for CT aa5 scan and blood work including amylase and lipase. Coronavirus screen: At this time, the client does not indicate any symptoms associated with coronavirus-19. Ebola Screen: Patient denies travel to an Ebola-affected area in the 21 days before illness onset. Initial Sepsis Screen: Does the patient meet any 2 criteria? No. Patient's initial sepsis screen is negative. Does the patient have a suspected source of infection? No. Patient's initial sepsis screen is negative. Risk Assessment: Do you want to hurt yourself or someone else? Patient reports no desire to harm self or others. Onset of symptoms was September 2023. 18:40 Acuity: KRISTEN 3 aa5 18:40 Method Of Arrival: Ambulatory aa5 Triage Assessment: 19:00 General: Appears uncomfortable, Behavior is calm, cooperative, appropriate for age. bp Pain: Complains of pain in epigastric area. GI: Reports upper abdominal pain. Historical: - Allergies: 18:39 No Known Allergies; aa5 - PMHx: 18:39 Diabetes mellitus; aa5 10/25 14:55 Hypertensive disorder; Atrial fibrillation; Hypercholesterolemia; nj1 - PSHx: 10/24 18:39 Hemorrhoidectomy; Back Sx; aa5 - Immunization history:: Adult Immunizations unknown. - Social history:: Smoking status: Patient denies any tobacco usage or history of. - Family history:: not pertinent. Screenin/30 05:12 [facility] ED Fall Risk Assessment (Adult) History of falling in the last 3 months, bp including since admission No falls in past 3 months (0 pts). Abuse screen: Denies threats or abuse. Denies injuries from another. Nutritional screening: No deficits noted. Tuberculosis screening: No symptoms or risk factors identified. Assessment: 10/24 23:00 General: Appears in no apparent distress. Behavior is calm, cooperative, appropriate bp for age. 11/30 01:00 Reassessment: Patient appears in no apparent distress at this time. Patient is alert, bp oriented x 3, equal unlabored respirations, skin warm/dry/pink. 03:00 Reassessment: Patient appears in no apparent distress at this time. Patient is alert, bp oriented x 3, equal unlabored respirations, skin warm/dry/pink. 05:00 Reassessment: Patient appears in no apparent distress at this time. Patient is alert, bp oriented x 3, equal unlabored respirations, skin warm/dry/pink. Vital Signs: 10/24 18:40 BP 147 / 73; Pulse 58; Resp 18 S; Temp 97.8(TE); Pulse Ox 100% on R/A; Weight 86.18 kg aa5 (R); Height 5 ft. 9 in. (R); 23:00 BP 135 / 59; Pulse 60; Resp 16; Pulse Ox 96% ; bp 10/25 01:00 BP 126 / 57; Pulse 53; Resp 16; Pulse Ox 94% ; bp 03:00 BP 130 / 56; Pulse 52; Resp 16; Pulse Ox 96% ; bp 10/24 18:40 Body Mass Index 28.06 (86.18 kg, 175.26 cm) aa5 ED Course: 10/24 18:22 Patient arrived in ED. mg5 18:23 Gerard Mckenzie MD is Attending Physician. carson 18:38 Arm band placed on. aa5 18:41 Triage completed. aa5 19:45 XRAY Chest (1 view) In Process Unspecified. EDMS 21:37 US Abdomen Limited In Process Unspecified. EDMS 21:48 CT Abd/Pelvis - IV Contrast Only In Process Unspecified. EDMS 21:54 Solitario Patel MD is Hospitalizing Provider. carson 22:33 Ernst Velez, [place] is Primary Nurse. bp 23:00 Patient has correct armband on for positive identification. Bed in low position. Call bp light in reach. Side rails up X2. 23:00 Inserted saline lock: 20 gauge in right antecubital area, using aseptic technique. bp 10/25 05:13 No provider procedures requiring assistance completed. Patient admitted, IV remains in bp place. Administered Medications: 10/24 20:55 Drug: Famotidine IVP 20 mg IVP once; dilute with 10 mL 0.9% NaCl; give over 2 minutes lg3 Route: IVP; Site: right antecubital; 20:55 Drug: NS 0.9% IV 1000 ml IV at 1 bolus Per protocol; 1000 mL bolus Route: IV; Rate: 1 lg3 bolus; Site: right antecubital; 10/25 06:19 Follow up: IV Status: Completed infusion; IV Intake: 1000ml bp 10/24 20:55 Drug: morphine IVP or IV 2 mg IVP once over 4 mins Route: IVP; Infused Over: 4 mins; lg3 Site: right antecubital; 10/25 06:19 Follow up: Response: No adverse reaction bp 10/24 20:55 Drug: Ondansetron IVP 4 mg IVP once; over 2 minutes Route: IVP; Site: right antecubital;lg3 10/25 06:18 Follow up: Response: No adverse reaction bp 10/24 22:11 Drug: Meropenem IV 1 grams IV at per protocol once; (mix in NS 100 mL) Route: IV; Rate: lg3 per protocol; Site: right antecubital; 10/25 06:18 Follow up: IV Status: Completed infusion; IV Intake: 100ml bp 06:20 Not Given (Patient Refused): morphineor iv 2 mg IVP once over 4 mins bp Medication: 15:06 VIS not applicable for this client. nj1 Intake: 06:18 IV: 100ml; Total: 100ml. bp 06:19 IV: 1000ml; Total: 1100ml. bp Outcome: 10/24 21:56 Decision to Hospitalize by Provider. carson 10/25 15:05 Admitted to Med/surg accompanied by tech, room 231, Report called to Connie CASIANO nj1 Condition: stable Condition: stable Instructed on the need for admit, 15:35 Patient left the ED. nj1 Signatures: Dispatcher [employer] EDMS Gerard Mckenzie MD MD cha Calderon, Audri, RN RN aa5 Ernst Velez RN RN bp Gibson, Lacie, RN RN lg3 Mago Rees RN RN nj1 Mary Beth Malik mg5 Corrections: (The following items were deleted from the chart) 14:56 10/24 18:39 PMHx: Hypertensive disorder; jaquelin bruce1 10/25 14:56 14:55 PMHx: Diabetes mellitus; nj1 nj1
[2023-10-24] MEDS ORDERED: Meropenem 1000 MG/VIAL IV ONE (22:00)
[2023-10-24] MEDS ORDERED: NA CHLORIDE 0.9% 100 ML ONE (22:01)
--- NOTE | 2023-10-24 22:03 | RAD REPORT ---
EXAM DESCRIPTION: CT - Abdomen Pelvis W Contrast - 10/24/2023 9:47 pm CLINICAL HISTORY: ABD PAIN COMPARISON: [place] Protocol dated 01/13/2020 TECHNIQUE: Thin cut axial CT imaging of the abdomen and pelvis was performed following intravenous a dministration of 100 mL Isovue 300. Multiplanar reformats were generated and reviewed. All CT scans are performed using dose optimization technique as appropriate and may include automated exposure control or mA/KV adjustment according to patient size. FINDINGS: No suspicious findings in the lung bases. The liver shows numerous subcentimeter hypoattenuating lesions approaching fluid density, suggestive of cysts, not well characterized spleen, adrenal glands, and pancreas show no suspicious findings. Ch anges of partial fatty infiltration of the pancreas, stable. Gallbladder and biliary tree are also wi thout suspicious finding. Symmetric renal function is seen with no hydronephrosis or suspicious renal mass. Left upper to mid p ole 3.4 cm exophytic cyst, essentially stable. No dilated bowel loops or bowel wall thickening. Colonic diverticulosis. No free air, free fluid or i nflammatory stranding. No hernia, mass or bulky lymphadenopathy. The urinary bladder is without signi ficant finding. Prostatomegaly. No suspicious bony findings. Posterior fusion hardware of the lower lumbar spine. Periscrew lucencies along bilateral S1 screws, may relate to ongoing loosening in the appropriate clinical setting. Lipoma within the substance of the vastus medialis. IMPRESSION: No acute intra-abdominal process. Incidental findings as above, including periscrew lucencies along bilateral S1 screws, may suggest servin rdware loosening in the appropriate clinical setting.
--- NOTE | 2023-10-24 22:35 | P.HP ---
Certification for Inpatient Patient admitted to: Observation With expected LOS: <2 Midnights Practitioner: I am a practitioner with admitting privileges, knowledge of patient current condition, hospital course, and medical plan of care. Services: Services provided to patient in accordance with Admission requirements found in Title 42 Section 412.3 of the Code of Federal Regulations Patient History Date of Service: 10/25/23 Reason for admission: Pancreatitis, abdominal pain. Allergies No Known Allergies Allergy (Verified 03/11/13 14:48) Home Medications: Aspirin [Aspirin EC 81 MG] 81 mg PO DAILY 03/11/13 Atorvastatin Calcium [Lipitor*] 10 mg PO BEDTIME 03/11/13 Folic Acid [Folic Acid*] 1 mg PO DAILY 03/11/13 Insulin Lispro MIX 75/25 [Humalog Mix 75/25*] 45 units SQ DAILY 03/11/13 Insulin Lispro MIX 75/25 [Humalog Mix 75/25*] 60 units SQ BEDTIME 03/11/13 Pioglitazone [Actos*] 15 mg PO DAILY 03/11/13 Ramipril 10 mg PO DAILY 03/11/13 Rivaroxaban [Xarelto] 20 mg PO DAILY #0 tablet 03/14/13 Sotalol HCl [Betapace] 80 mg PO BID #0 tablet 03/14/13 - Past Medical/Surgical History Diabetic: Yes -: stroke -: diabetes -: high cholesterol -: Spinal Fusion 1974 -: Bilateral Hand surgery -: Neck surgery - Social History Alcohol use: No CD- Drugs: No Caffeine use: No Review of Systems General: Unremarkable Eyes: Unremarkable ENT: Unremarkable Respiratory: Unremarkable Gastrointestinal: Abdominal Pain Genitourinary: Unremarkable Musculoskeletal: Unremarkable Integumentary: Unremarkable Neurological: Unremarkable Physical Examination - Physical Exam General: Alert, Oriented x3 HEENT: Atraumatic Neck: Supple Respiratory: Normal air movement Cardiovascular: Regular rate/rhythm, Normal S1 S2 Gastrointestinal: Tenderness Musculoskeletal: No swelling Neurological: Normal speech, Normal strength at 5/5 x4 extr - Studies Laboratory Data (last 24 hrs) 10/24/23 10/24/23 10/24/23 19:15 19:15 19:15 WBC 18.10 H Hgb 15.5 Hct 46.0 Plt Count 276 PT 14.4 H INR 1.31 Sodium 136 Potassium 4.1 BUN 21 H Creatinine 0.94 Glucose 112 H Magnesium 2.6 H Total Bilirubin 0.8 AST 22 ALT 31 Alkaline Phosphatase 98 Lipase 486 H Assessment and Plan - Plan Pancreatitis: Patient has significant lab findings and clinical findings. Empiric therapy with lactated Ringer's has been started for hydration. As needed Dilaudid to be continued for pain control. Will keep n.p.o. pending further review. Diabetes type 2: We will continue sliding scale insulin for glucose control and monitor blood sugar every 6 hours pending resumption of oral feeds. History of hypertension: We will continue to monitor vital signs per unit protocol and continue antihypertensive medications. Prophylaxis: Lovenox for DVT prophylaxis CODE STATUS: Full code Disposition: Pending resolution of acute pancreatitis episode. - Advance Directives Does patient have a Living Will: No Does patient have a Durable POA for Healthcare: No
[2023-10-24] MEDS ORDERED: ACETAMINOPHEN 325 MG TABLET PO PRN (22:38)
[2023-10-24] MEDS: Ringers Lactate 1,000 ML IV SCH (23:00)
[2023-10-25] MEDS ORDERED: ONDANSETRON 4 MG/2 ML VIAL ONE ×2 (02:11→08:18)
[2023-10-25] MEDS ORDERED: HYDROMORPHONE HCL 0.5 MG/0.5 ML INJ ONE ×2 (02:11→08:18)
[2023-10-25] MEDS: ONDANSETRON 4 MG/2 ML VIAL IV PRN ×2 (03:00→08:36)
[2023-10-25] MEDS: HYDROMORPHONE HCL 0.5 MG/0.5 ML INJ IV PRN ×3 (03:00→18:25)
[2023-10-25 05:21] LABS: Absolute Lymphocytes (CBC) 2.5 K/uL (0.7-4.9); Hematocrit 40.9 % (39.6-49.0); Lymphocytes % 15.5 % (15.3-44.8); MCV 93.6 fL (80-100); MPV 8.2 fL (7.6-11.3); Platelets 261 thou/uL (152-406); RBC Red Blood Cell Count 4.37 M/uL (4.33-5.43)
[2023-10-25 05:43] VITALS: BMI 28.0
[2023-10-25 05:45] LABS: Potassium 4.5 mEq/L (3.5-5.1)
[2023-10-25] MEDS: Ringers Lactate 1,000 ML IV SCH ×2 (07:00→17:55)
[2023-10-25] MEDS ORDERED: ENOXAPARIN 40 MG/0.4 ML SQ ONE (08:19)
[2023-10-25] MEDS ORDERED: ENOXAPARIN 40 MG/0.4 ML SQ SCH (09:00)
[2023-10-25] MEDS ORDERED: FOLIC ACID 1 MG TABLET ONE (10:50)
[2023-10-25] MEDS ORDERED: SOTALOL HCL 80 MG TAB ONE (10:50)
[2023-10-25] MEDS ORDERED: FOLIC ACID 1 MG TABLET PO SCH (11:00)
[2023-10-25] MEDS ORDERED: ramipriL 5 MG CAP PO SCH (11:00)
[2023-10-25] MEDS ORDERED: SOTALOL HCL 80 MG TAB PO SCH (11:00)
--- NOTE | 2023-10-25 15:12 | EKG ---
Test Date: 2023-10-24 Test Time: 19:42:19 Restorative Coordinator: MARIAN MEASUREMENT RESULTS: Intervals: Rate: 50 MT: 174 QRSD: 84 QT: 448 QTc: 408 [place]: P: 60 MT: 174 QRS: 55 T: 42 INTERPRETIVE STATEMENTS: Sinus bradycardia Nonspecific T wave abnormality Abnormal ECG Compared to ECG 01/14/2020 11:49:28 T-wave abnormality now present ST (T wave) deviation no longer present Possible ischemia no longer present Electronically Signed On 10-25-23 15:10:35 POWDER ROOM ATTENDANT by Ra Hill
[2023-10-25 15:54] VITALS: O2SAT 96
[2023-10-25] MEDS ORDERED: RIVAROXABAN 20 MG TABLET PO SCH (17:00)
[2023-10-25 17:30] VITALS: BP 148/67; TEMP 98.4
--- NOTE | 2023-10-25 18:18 | P.DS ---
Admission Date: 10/24/23 Discharge Date: 10/25/23 Disposition: ROUTINE DISCHARGE Discharge Condition: FAIR Reason for Admission: Pancreatitis, abdominal pain. - Problems (1) Acute pancreatitis Current Visit: Yes Status: Acute (2) Type 2 diabetes mellitus Current Visit: Yes Status: Acute Brief History of Present Illness: 78-year-old gentleman with a history of diabetes and hypertension presented to the emergency department with a complaint of epigastric pain and abdominal pain of 3 days duration. Symptoms associated with nausea. Patient states her abdominal pain became worse so he came to the emergency department for evaluation. CT abdomen and pelvis done in the ED demonstrated fatty infiltrate of the pancreas. No gallstones and normal biliary tree. Patient lipase level elevated to 486. Patient was hospitalized for further management of acute pancreatitis. Hospital Course: Patient placed under observation on the medical floor and treated with supportive measures including IV hydration. He tolerated clear liquid diet and full liquid diet. Lipase level trended down. Patient became asymptomatic. Etiology of acute pancreatitis most likely secondary to empagliflozin and linagliptin use. This medications have been discontinued and patient maintained on insulin and metformin. Patient's symptoms have improved and he is deemed stable for discharge. Vital Signs/Physical Exam: Temp Pulse Resp BP Pulse Ox 98.4 F 53 15 148/67 H 94 10/25/23 16:00 10/25/23 16:00 10/25/23 16:00 10/25/23 16:00 10/25/23 16:00 General: Alert, In no apparent distress, Oriented x3 HEENT: Mucous membr. moist/pink Neck: Supple, JVD not distended Respiratory: Clear to auscultation bilaterally, Normal air movement Cardiovascular: No edema, Regular rate/rhythm, Normal S1 S2 Gastrointestinal: Normal bowel sounds, Soft and benign, Non-distended, No tenderness Musculoskeletal: No swelling Integumentary: No rashes Neurological: Normal strength at 5/5 x4 extr Laboratory Data at Discharge: WBC 16.10 thou/uL (4.3-10.9) H 10/25/23 04:01 Hgb 13.8 g/dL (13.6-17.9) D 10/25/23 04:01 Hct 40.9 % (39.6-49.0) 10/25/23 04:01 Plt Count 261 thou/uL (152-406) 10/25/23 04:01 PT 14.4 SECONDS (9.5-12.5) H 10/24/23 19:15 INR 1.31 10/24/23 19:15 Sodium 139 mEq/L (136-145) 10/25/23 04:01 Potassium 4.5 mEq/L (3.5-5.1) 10/25/23 04:01 BUN 19 mg/dL (7-18) H 10/25/23 04:01 Creatinine 0.81 mg/dL (0.70-1.30) 10/25/23 04:01 Glucose 76 mg/dL (74-106) 10/25/23 04:01 Magnesium 2.6 mg/dL (1.6-2.4) H 10/24/23 19:15 Total Bilirubin 0.8 mg/dL (0.2-1.0) 10/24/23 19:15 AST 22 U/L (15-37) 10/24/23 19:15 ALT 31 U/L (16-61) 10/24/23 19:15 Alkaline Phosphatase 98 U/L (45-117) 10/24/23 19:15 Lipase 125 U/L (13-75) H 10/25/23 13:10 Home Medications: Atorvastatin Calcium [Lipitor*] 10 mg PO BEDTIME 03/11/13 Folic Acid [Folic Acid*] 1 mg PO DAILY 03/11/13 Ramipril 10 mg PO DAILY 03/11/13 Rivaroxaban [Xarelto] 20 mg PO DAILY #0 tablet 03/14/13 Sotalol HCl [Betapace] 80 mg PO BID #0 tablet 03/14/13 Insulin Aspart Prot/Insuln Asp [Novolog Mix 70-30 Flexpen] 100 unit SQ AC 10/25/23 Metformin HCl [Glucophage*] 500 mg PO BIDWM #60 tab 10/25/23 New Medications: Metformin HCl [Glucophage*] 500 mg PO BIDWM #60 tab Diet: ADA Activity: Fall precautions Followup: Derrell Cali MD [Primary Care Provider] - 1-2 Weeks Time spent managing pt's care (in minutes): 25
[2023-10-25] MEDS ORDERED: ATORVASTATIN 10 MG TAB PO SCH (21:00)
== END 2023-10-25 19:44 | disposition home or self-care (01) ==
LOC: ER 18:17 → ERHOLD 22:38 → 2ND 10-25 14:37
PROVIDERS: ADMIT Internal Medicine Nephrology; ATTEND Internal Medicine
DX: K85.90 Acute pancreatitis without necrosis or infection, unspecified (principal); E11.9 Type 2 diabetes mellitus without complications; I10 Essential (primary) hypertension
CPT/HCPCS: 96365; 96361; 93005; 85025 ×2; 80048 ×2; 36415; 83735; 85610; 80076; 81003; 83036; 84484; 83690 ×2; 83880; 74177; 71045; 76705; 96375; 99285; 96366; Q9967; J1650; J2270; J2185; J1170 ×3; J2405 ×3; J7120; J7030; G0378 ×3